=== PATIENT | male | born 1975 | race Caucasian/White ===

== ENCOUNTER 2020-02-07 15:23 | Inpatient (IN) ==
[2020-02-07] MEDS ORDERED: GI Cocktail 40 ML EACH PO ONE (16:04)
[2020-02-07] MEDS ORDERED: 0.9 % Sodium Chloride 1,000 ML IVC ONE (16:04)
[2020-02-07] MEDS ORDERED: Famotidine 20 MG/2 ML VIAL IVP ONE (16:06)
[2020-02-07 17:17] LABS: Bacteria,Urine Few per hpf (None-Few); Bilirubin,Urine Negative (Negative); Blood,Urine Small (Negative); Clarity,Urine Clear (Clear); Color,Urine Light-Yellow (Yellow); Glucose,Urine (UA) >=1000 mg/dL (Normal); Ketones,Urine Negative (Negative); Leukocyte Esterase,Urine Negative (Negative); Mucus,Urine Few per lpf (None-Few); Nitrite,Urine Negative (Negative); PH,Urine 6.5 pH Units (5.0-8.0); Protein,Urine >=600 mg/dL (Neg-Trace); Specific Gravity,Urine 1.028 (1.010-1.025); Squamous Epithelial Cell,Urine Few per hpf (None-Few); Urobilinogen,Urine Normal (Normal); WBC,Urine 0-3 per hpf (0-3)
[2020-02-07 17:46] LABS: Basophils # 0.2 K/mcL (0.0-0.2); Basophils % 1.6 %; Eosinophils # 1.3 K/mcL (0.0-0.6); Eosinophils % 14.3 %; Hematocrit 32.3 % (37.5-50.1); Hemoglobin 11.7 g/dL (12.9-16.9); Immature Granulocytes % 0.5 % (0-4); Lymphocytes # 1.8 K/mcL (0.6-4.6); Lymphocytes % 19.4 %; Mean Corpuscular HGB Conc 36.2 g/dL (31.6-35.5); Mean Corpuscular Hemoglobin 30.8 pg (28.0-33.3); Mean Platelet Volume 10.7 fL (9.4-12.4); Monocytes # 0.5 K/mcL (0.0-1.3); Monocytes % 5.6 %; Neutrophils # 5.4 K/mcL (1.6-8.9); Platelet Count 222 K/mcL (140-400); Red Cell Distribution Width 12.7 % (11.5-14.5); Segmented Neutrophils % 58.6 %; White Blood Count 9.3 K/mcL (4.3-11.1)
[2020-02-07] MEDS ORDERED: Isovue-370 500 ML BOTTLE IVP ONE (17:46)
[2020-02-07 17:48] LABS: VBG HCO3 23 mEq/L (21-27); VBG PCO2 43 mmHg (41-51); VBG PH 7.35 pH Units (7.32-7.42); VBG PO2 148 mmHg (25-50)
[2020-02-07 17:56] LABS: Activated Partial Thrombo Time 33.8 Seconds (26.0-36.0)
[2020-02-07 17:57] LABS: INR 0.9; Prothrombin Time 10.5 Seconds (9.4-12.1)
[2020-02-07 18:13] LABS: Albumin 2.9 g/dL (3.5-5.7); Albumin/Globulin Ratio 1.3 (1.1-2.2); Bilirubin,Indirect 0.3 mg/dL (0.0-1.0); Bilirubin,Total 0.3 mg/dL (0.3-1.0); Calcium 8.7 mg/dL (8.6-10.3); Globulin 2.2 g/dL (2.4-3.5); Potassium 4.2 mEq/L (3.5-5.1); Total Protein 5.1 g/dL (6.4-8.9); Troponin I 0.21 ng/mL (< 0.04)
[2020-02-07] MEDS ORDERED: 0.9 % Sodium Chloride 500 ML IV ONE (18:56)
[2020-02-07] MEDS ORDERED: *HR* Heparin 5,000 UNIT/ML VIAL IVP PRN ×2 (19:30)
[2020-02-07] MEDS ORDERED: *HR* Heparin 5,000 UNIT/ML VIAL IVP ONE (19:30)
[2020-02-07 20:09] LABS: INR 0.9; Prothrombin Time 10.6 Seconds (9.4-12.1)
[2020-02-07 20:11] LABS: Heparin anti-factor XA UFH 0.05 IU/mL (0.30-0.70)
[2020-02-07] MEDS: Heparin 25,000 UNIT/250 ML D5W 25,000 UNIT/250 ML IV.SOLN IVC SCH (20:15)
[2020-02-07 20:24] LABS: Hemoglobin 11.6 g/dL (12.9-16.9); Mean Corpuscular HGB Conc 36.3 g/dL (31.6-35.5); Mean Corpuscular Hemoglobin 30.9 pg (28.0-33.3); Mean Corpuscular Volume 85.1 fL (83.0-100.0); Mean Platelet Volume 10.9 fL (9.4-12.4); Platelet Count 217 K/mcL (140-400); Red Blood Count 3.76 M/mcL (4.19-5.50); Red Cell Distribution Width 12.7 % (11.5-14.5); White Blood Count 7.7 K/mcL (4.3-11.1)
[2020-02-08] MEDS ORDERED: Naloxone 0.4 MG/ML INJ IVP PRN (00:55)
[2020-02-08] MEDS ORDERED: Dextrose Gel 15 GM/37.5 ML TUBE PO PRN ×2 (00:56)
[2020-02-08] MEDS ORDERED: D5% in Water 1,000 ML IVC PRN (00:56)
[2020-02-08] MEDS ORDERED: *HR* Dextrose 50 % in Water (Vial) 50 ML VIAL IVP PRN (00:56)
[2020-02-08] MEDS: traZODone 50 MG TABLET PO SCH ×2 (01:15→20:37)
[2020-02-08] MEDS ORDERED: 0.9 % Sodium Chloride 1,000 ML IVC SCH (01:30)
[2020-02-08 01:43] LABS: Magnesium 1.9 mg/dL (1.6-2.6)
[2020-02-08 01:54] LABS: Basophils # 0.2 K/mcL (0.0-0.2); Basophils % 1.9 %; Eosinophils # 1.3 K/mcL (0.0-0.6); Eosinophils % 13.3 %; Hematocrit 34.6 % (37.5-50.1); Hemoglobin 12.4 g/dL (12.9-16.9); Immature Granulocytes % 0.4 % (0-4); Lymphocytes # 2.5 K/mcL (0.6-4.6); Lymphocytes % 25.9 %; Mean Corpuscular HGB Conc 35.8 g/dL (31.6-35.5); Mean Corpuscular Hemoglobin 30.2 pg (28.0-33.3); Mean Corpuscular Volume 84.2 fL (83.0-100.0); Mean Platelet Volume 10.7 fL (9.4-12.4); Monocytes # 0.5 K/mcL (0.0-1.3); Monocytes % 5.5 %; Platelet Count 256 K/mcL (140-400); Red Blood Count 4.11 M/mcL (4.19-5.50); Red Cell Distribution Width 12.9 % (11.5-14.5); White Blood Count 9.5 K/mcL (4.3-11.1)
[2020-02-08 02:11] LABS: BUN/Creatinine Ratio 26 (6-26); Blood Urea Nitrogen 30 mg/dL (6-20); Calcium 8.1 mg/dL (8.6-10.3); Carbon Dioxide 18 mEq/L (23-29); Chloride 108 mEq/L (98-107); Glucose 187 mg/dL (70-105); Osmolality,Calculated 291 (280-300); Potassium 3.9 mEq/L (3.5-5.1); Sodium 135 mEq/L (136-145); eGFR For African Americans > 60 (> 60); eGFR For Non-African Americans > 60 (> 60)
[2020-02-08] MEDS ORDERED: Acetaminophen 325 MG TABLET PO PRN (02:27)
[2020-02-08] MEDS: Insulin LISPRO 300 UNITS/3 ML VIAL SQ SCH ×5 (04:41→20:37)
[2020-02-08 08:55] LABS: Hematocrit 33.9 % (37.5-50.1); Hemoglobin 12.3 g/dL (12.9-16.9); Mean Corpuscular HGB Conc 36.3 g/dL (31.6-35.5); Mean Corpuscular Hemoglobin 30.9 pg (28.0-33.3); Mean Corpuscular Volume 85.2 fL (83.0-100.0); Mean Platelet Volume 10.4 fL (9.4-12.4); Platelet Count 213 K/mcL (140-400); Red Blood Count 3.98 M/mcL (4.19-5.50); Red Cell Distribution Width 12.9 % (11.5-14.5); White Blood Count 7.5 K/mcL (4.3-11.1)
[2020-02-08 09:03] LABS: INR 0.9; Prothrombin Time 10.5 Seconds (9.4-12.1)
[2020-02-08 09:11] LABS: BUN/Creatinine Ratio 25 (6-26); Blood Urea Nitrogen 31 mg/dL (6-20); Calcium 8.1 mg/dL (8.6-10.3); Carbon Dioxide 20 mEq/L (23-29); Chloride 111 mEq/L (98-107); Chol/HDL Ratio 8.9 (0-4.9); Cholesterol 286 mg/dL (< 200); Glucose 96 mg/dL (70-105); HDL Cholesterol 32 mg/dL (40-59); Osmolality,Calculated 288 (280-300); Phosphorous 3.4 mg/dL (2.7-4.5); Potassium 3.5 mEq/L (3.5-5.1); Sodium 136 mEq/L (136-145); Triglycerides 651 mg/dL (< 150); eGFR For African Americans > 60 (> 60); eGFR For Non-African Americans > 60 (> 60)
[2020-02-08] MEDS: Insulin DETEMIR 100 UNIT/ML X5UNITS SQ SCH ×2 (09:29→20:34)
[2020-02-08 09:37] LABS: Estimated Average Glucose 361 mg/dl
[2020-02-08] MEDS ORDERED: Perflutren Lipid Microsphere 1.3 ML in 0.9 % Sodium Chloride 8.7 ML IVP ONE ×2 (09:37→12:59)
[2020-02-08] MEDS: Loratadine 10 MG TABLET PO SCH (10:12)
[2020-02-08] MEDS: Gabapentin 300 MG CAPSULE PO SCH (10:13)
[2020-02-08] MEDS: Aspirin Enteric Coated 81 MG Tablet PO SCH (10:13)
[2020-02-08] MEDS: Nicotine 14 MG PATCH.TD24 TD SCH (10:13)
[2020-02-08] MEDS: Metoprolol XL (24 HR) Succ 25 MG TAB.ER.24H PO SCH (12:38)
[2020-02-08] MEDS ORDERED: *HR* Labetalol 20 MG/4 ML SYRINGE IVP ONE (17:05)
[2020-02-08] MEDS: lisinopriL 20 MG TABLET PO SCH (17:23)
[2020-02-08] MEDS ORDERED: Morphine Sulfate 2 MG/ML SYRINGE IVP ONE (20:08)
[2020-02-08] MEDS: Heparin 25,000 UNIT/250 ML D5W 25,000 UNIT/250 ML IV.SOLN IVC SCH (20:54)
[2020-02-09] MEDS: Insulin LISPRO 300 UNITS/3 ML VIAL SQ SCH ×7 (00:40→20:55)
[2020-02-09] MEDS: *HR* Promethazine 25 MG/ML VIAL IVP PRN ×2 (04:08→10:32)
[2020-02-09] MEDS: lisinopriL 20 MG TABLET PO SCH (09:00)
[2020-02-09] MEDS: Metoprolol XL (24 HR) Succ 25 MG TAB.ER.24H PO SCH (09:00)
[2020-02-09] MEDS: Loratadine 10 MG TABLET PO SCH (09:00)
[2020-02-09] MEDS: Aspirin Enteric Coated 81 MG Tablet PO SCH (09:00)
[2020-02-09] MEDS: Gabapentin 300 MG CAPSULE PO SCH (09:01)
[2020-02-09] MEDS: Nicotine 14 MG PATCH.TD24 TD SCH (09:01)
[2020-02-09] MEDS: Insulin DETEMIR 100 UNIT/ML X5UNITS SQ SCH ×2 (09:01→20:46)
[2020-02-09] MEDS ORDERED: Nitroglycerin 1,000 MCG/10 ML VIAL IV ONE (11:02)
[2020-02-09] MEDS ORDERED: 0.9 % Sodium Chloride 1,000 ML ONE (11:02)
[2020-02-09] MEDS ORDERED: Heparin 1,000 UNITS/500 mL 500 ML ONE (11:02)
[2020-02-09] MEDS ORDERED: *HR* Heparin 10,000 UNIT/10 ML VIAL ONE (11:02)
[2020-02-09] MEDS ORDERED: ISOVUE-370 200 ML INFUS..BTL ONE (11:02)
[2020-02-09] MEDS ORDERED: *HR* FentaNYL (PF) 100 MCG/2 ML VIAL ONE (11:18)
[2020-02-09] MEDS ORDERED: *HR* Midazolam HCl 2 MG/2 ML VIAL ONE (11:18)
[2020-02-09] MEDS ORDERED: Tirofiban 12.5 MG/250ML 12.5 MG/250 ML BAG ONE (11:47)
[2020-02-09] MEDS ORDERED: Tirofiban 12.5 MG/250ML 12.5 MG/250 ML BAG IVC SCH (12:15)
[2020-02-09] MEDS: polyethylene glycoL 3350 17 GM POWD.PACK PO SCH (18:14)
[2020-02-09] MEDS: traZODone 50 MG TABLET PO SCH (20:49)
[2020-02-09] MEDS: *HR* Heparin 5,000 UNIT/ML VIAL SQ SCH (20:49)
[2020-02-10] MEDS: Insulin LISPRO 300 UNITS/3 ML VIAL SQ SCH ×6 (01:19→21:19)
[2020-02-10 01:39] LABS: Basophils # 0.1 K/mcL (0.0-0.2); Basophils % 1.4 %; Eosinophils % 11.6 %; Hematocrit 34.5 % (37.5-50.1); Hemoglobin 12.4 g/dL (12.9-16.9); Lymphocytes # 1.6 K/mcL (0.6-4.6); Lymphocytes % 18.4 %; Mean Corpuscular HGB Conc 35.9 g/dL (31.6-35.5); Mean Corpuscular Hemoglobin 30.5 pg (28.0-33.3); Mean Corpuscular Volume 84.8 fL (83.0-100.0); Mean Platelet Volume 10.6 fL (9.4-12.4); Monocytes # 0.6 K/mcL (0.0-1.3); Monocytes % 6.3 %; Neutrophils # 5.4 K/mcL (1.6-8.9); Platelet Count 218 K/mcL (140-400); Red Blood Count 4.07 M/mcL (4.19-5.50); Red Cell Distribution Width 12.9 % (11.5-14.5); Segmented Neutrophils % 61.3 %; White Blood Count 8.9 K/mcL (4.3-11.1)
[2020-02-10 01:53] LABS: Calcium 8.3 mg/dL (8.6-10.3); Magnesium 2.2 mg/dL (1.6-2.6); Potassium 4.7 mEq/L (3.5-5.1)
[2020-02-10] MEDS: *HR* Heparin 5,000 UNIT/ML VIAL SQ SCH ×3 (06:44→21:26)
[2020-02-10] MEDS ORDERED: 0.9 % Sodium Chloride 500 ML IVC SCH (08:00)
[2020-02-10] MEDS: lisinopriL 20 MG TABLET PO SCH (09:46)
[2020-02-10] MEDS: Isosorbide MONOnitrate (24 HR) 30 MG TAB.ER.24H PO SCH (09:46)
[2020-02-10] MEDS: Loratadine 10 MG TABLET PO SCH (09:46)
[2020-02-10] MEDS: Metoprolol XL (24 HR) Succ 25 MG TAB.ER.24H PO SCH (09:46)
[2020-02-10] MEDS: polyethylene glycoL 3350 17 GM POWD.PACK PO SCH (09:47)
[2020-02-10] MEDS: Nicotine 14 MG PATCH.TD24 TD SCH (09:47)
[2020-02-10] MEDS: Aspirin Enteric Coated 81 MG Tablet PO SCH (09:47)
[2020-02-10] MEDS: Insulin DETEMIR 100 UNIT/ML X5UNITS SQ SCH ×2 (09:47→21:26)
[2020-02-10] MEDS: Gabapentin 300 MG CAPSULE PO SCH (09:47)
[2020-02-10] MEDS: *HR* Promethazine 25 MG/ML VIAL IVP PRN (10:06)
[2020-02-10] MEDS ORDERED: GI Cocktail 40 ML EACH PO ONE (16:28)
[2020-02-10] MEDS: traZODone 50 MG TABLET PO SCH (21:25)
[2020-02-11] MEDS: *HR* Heparin 5,000 UNIT/ML VIAL SQ SCH ×3 (05:31→20:45)
[2020-02-11 07:51] LABS: BUN/Creatinine Ratio 28 (6-26); Blood Urea Nitrogen 41 mg/dL (6-20); Calcium 8.3 mg/dL (8.6-10.3); Carbon Dioxide 20 mEq/L (23-29); Chloride 110 mEq/L (98-107); Glucose 110 mg/dL (70-105); Osmolality,Calculated 295 (280-300); Potassium 4.3 mEq/L (3.5-5.1); Sodium 137 mEq/L (136-145); eGFR For African Americans > 60 (> 60); eGFR For Non-African Americans 54 (> 60)
[2020-02-11] MEDS: Insulin LISPRO 300 UNITS/3 ML VIAL SQ SCH ×4 (08:50→20:45)
[2020-02-11] MEDS: Insulin DETEMIR 100 UNIT/ML X5UNITS SQ SCH ×3 (09:08→20:45)
[2020-02-11] MEDS: Aspirin Enteric Coated 81 MG Tablet PO SCH (09:14)
[2020-02-11] MEDS: lisinopriL 20 MG TABLET PO SCH (09:14)
[2020-02-11] MEDS: Isosorbide MONOnitrate (24 HR) 30 MG TAB.ER.24H PO SCH (09:14)
[2020-02-11] MEDS: Gabapentin 300 MG CAPSULE PO SCH (09:14)
[2020-02-11] MEDS: Loratadine 10 MG TABLET PO SCH (09:14)
[2020-02-11] MEDS: Metoprolol XL (24 HR) Succ 25 MG TAB.ER.24H PO SCH (09:14)
[2020-02-11] MEDS: polyethylene glycoL 3350 17 GM POWD.PACK PO SCH (09:16)
[2020-02-11] MEDS ORDERED: Lidocaine -MPF 2% 2 ML VIAL ONE (10:39)
[2020-02-11] MEDS ORDERED: *HR* Propofol 200 MG/20 ML VIAL IVP ONE (10:40)
[2020-02-11] MEDS: Nicotine 14 MG PATCH.TD24 TD SCH ×2 (11:07→17:53)
[2020-02-11] MEDS: 0.9 % Sodium Chloride 1,000 ML IVC SCH (12:55)
[2020-02-11] MEDS: traZODone 50 MG TABLET PO SCH (20:45)
[2020-02-12 02:23] LABS: BUN/Creatinine Ratio 27 (6-26); Blood Urea Nitrogen 35 mg/dL (6-20); Calcium 8.1 mg/dL (8.6-10.3); Carbon Dioxide 19 mEq/L (23-29); Chloride 110 mEq/L (98-107); Glucose 157 mg/dL (70-105); Osmolality,Calculated 291 (280-300); Potassium 4.4 mEq/L (3.5-5.1); Sodium 135 mEq/L (136-145); eGFR For African Americans > 60 (> 60); eGFR For Non-African Americans > 60 (> 60)
[2020-02-12] MEDS: 0.9 % Sodium Chloride 1,000 ML IVC SCH (04:58)
[2020-02-12] MEDS: *HR* Heparin 5,000 UNIT/ML VIAL SQ SCH ×3 (04:58→21:40)
[2020-02-12] MEDS: Loratadine 10 MG TABLET PO SCH (07:40)
[2020-02-12] MEDS: Gabapentin 300 MG CAPSULE PO SCH (07:40)
[2020-02-12] MEDS: Metoprolol XL (24 HR) Succ 25 MG TAB.ER.24H PO SCH (07:40)
[2020-02-12] MEDS: Aspirin Enteric Coated 81 MG Tablet PO SCH (07:40)
[2020-02-12] MEDS: lisinopriL 20 MG TABLET PO SCH (07:40)
[2020-02-12] MEDS: Isosorbide MONOnitrate (24 HR) 30 MG TAB.ER.24H PO SCH (07:41)
[2020-02-12] MEDS: Insulin DETEMIR 100 UNIT/ML X5UNITS SQ SCH ×2 (07:41→22:33)
[2020-02-12] MEDS: polyethylene glycoL 3350 17 GM POWD.PACK PO SCH (07:41)
[2020-02-12] MEDS: Insulin LISPRO 300 UNITS/3 ML VIAL SQ SCH ×4 (08:00→21:41)
[2020-02-12] MEDS ORDERED: Lactulose Oral Soln 20 GM/30 ML UDC PO ONE (09:45)
[2020-02-12] MEDS: Nicotine 14 MG PATCH.TD24 TD SCH (17:08)
[2020-02-12] MEDS: traZODone 50 MG TABLET PO SCH (21:41)
[2020-02-13] MEDS: *HR* Heparin 5,000 UNIT/ML VIAL SQ SCH (04:59)
[2020-02-13] MEDS: *HR* Promethazine 25 MG/ML VIAL IVP PRN (09:20)
[2020-02-13] MEDS: lisinopriL 20 MG TABLET PO SCH (09:24)
[2020-02-13] MEDS: Aspirin Enteric Coated 81 MG Tablet PO SCH (09:24)
[2020-02-13] MEDS: Loratadine 10 MG TABLET PO SCH (09:25)
[2020-02-13] MEDS: Isosorbide MONOnitrate (24 HR) 30 MG TAB.ER.24H PO SCH (09:25)
[2020-02-13] MEDS: Metoprolol XL (24 HR) Succ 25 MG TAB.ER.24H PO SCH (09:25)
[2020-02-13] MEDS: Gabapentin 300 MG CAPSULE PO SCH (09:25)
[2020-02-13] MEDS: Insulin LISPRO 300 UNITS/3 ML VIAL SQ SCH (09:27)
[2020-02-13] MEDS: polyethylene glycoL 3350 17 GM POWD.PACK PO SCH (09:28)
[2020-02-13] MEDS: Insulin DETEMIR 100 UNIT/ML X5UNITS SQ SCH (09:33)
[2020-02-13] MEDS ORDERED: Lactulose Oral Soln 20 GM/30 ML UDC PO ONE (09:34)
[2020-02-13 11:21] VITALS: BP 144/90
== END 2020-02-13 12:32 | disposition home or self-care (01) | DRG 174 ==
LOC: EMEROOARM 15:23 → ICNU 15:23 → SUATTDRO 02-08 02:30 → 2ANU 02-08 23:16
PROVIDERS: ADMIT Student in an Organized Health Care Education/Training Program; ATTEND Internal Medicine

== ENCOUNTER 2020-02-21 00:46 | Observation (INO) ==
[2020-02-21] MEDS ORDERED: Naloxone 0.4 MG/ML INJ IVP PRN (01:30)
[2020-02-21] MEDS ORDERED: D5% in Water 1,000 ML IVC PRN (01:59)
[2020-02-21] MEDS ORDERED: Dextrose Gel 15 GM/37.5 ML TUBE PO PRN ×2 (01:59)
[2020-02-21] MEDS ORDERED: *HR* Dextrose 50 % in Water (Vial) 50 ML VIAL IVP PRN (01:59)
[2020-02-21] MEDS ORDERED: Insulin LISPRO 300 UNITS/3 ML VIAL SQ ONE (02:06)
[2020-02-21 02:08] LABS: Bacteria,Urine Few per hpf (None-Few); Bilirubin,Urine Negative (Negative); Blood,Urine Small (Negative); Clarity,Urine Clear (Clear); Color,Urine Colorless (Yellow); Glucose,Urine (UA) >=1000 mg/dL (Normal); Hyaline Casts,Urine Few per lpf (None Seen); Ketones,Urine Negative (Negative); Leukocyte Esterase,Urine Negative (Negative); Mucus,Urine Few per lpf (None-Few); Nitrite,Urine Negative (Negative); PH,Urine 6.5 pH Units (5.0-8.0); Protein,Urine >=300 mg/dL (Neg-Trace); RBC,Urine 0-3 per hpf (0-3); Specific Gravity,Urine 1.018 (1.010-1.025); Urobilinogen,Urine Normal (Normal); WBC,Urine 0-3 per hpf (0-3)
[2020-02-21 02:19] LABS: Amphetamine Screen,Urine Negative ng/mL (Cutoff=1000); Barbiturate Screen,Urine Negative ng/mL (Cutoff=200); Benzodiazepines Screen,Urine Negative ng/mL (Cutoff=200); Cannabinoid Screen,Urine Negative ng/mL (Cutoff = 50); Cocaine Screen,Urine Negative ng/mL (Cutoff= 300); Opiate Screen,Urine Negative ng/mL (Cutoff=300); Phencyclidine Screen,Urine Negative ng/mL (Cutoff=25)
[2020-02-21 02:53] LABS: Basophils % 1.5 %
[2020-02-21 02:55] LABS: Basophils # 0.1 K/mcL (0.0-0.2); Eosinophils # 1.3 K/mcL (0.0-0.6); Hematocrit 31.1 % (37.5-50.1); Hemoglobin 10.7 g/dL (12.9-16.9); Immature Granulocytes % 0.4 % (0-4); Immature Platelets 4.4 % (1.1-6.1); Lymphocytes # 1.8 K/mcL (0.6-4.6); Lymphocytes % 19.2 %; Mean Corpuscular HGB Conc 34.4 g/dL (31.6-35.5); Mean Corpuscular Hemoglobin 30.5 pg (28.0-33.3); Mean Corpuscular Volume 88.6 fL (83.0-100.0); Mean Platelet Volume 11.1 fL (9.4-12.4); Monocytes # 0.5 K/mcL (0.0-1.3); Monocytes % 5.7 %; Platelet Count 225 K/mcL (140-400); Red Blood Count 3.51 M/mcL (4.19-5.50); Red Cell Distribution Width 12.9 % (11.5-14.5); Segmented Neutrophils % 59.2 %; White Blood Count 9.2 K/mcL (4.3-11.1)
[2020-02-21 02:57] LABS: INR 0.9; Prothrombin Time 10.3 Seconds (9.4-12.1)
[2020-02-21 02:59] LABS: Neutrophils # 5.5 K/mcL (1.6-8.9)
[2020-02-21 03:13] LABS: Alanine Aminotransferase 29 Units/L (7-52); Albumin 2.9 g/dL (3.5-5.7); Albumin/Globulin Ratio 1.2 (1.1-2.2); Alkaline Phosphatase 194 Units/L (34-104); Aspartate Amino Transferase 17 Units/L (13-39); BUN/Creatinine Ratio 25 (6-26); Bilirubin,Total 0.3 mg/dL (0.3-1.0); Blood Urea Nitrogen 33 mg/dL (6-20); Calcium 8.5 mg/dL (8.6-10.3); Carbon Dioxide 19 mEq/L (23-29); Chloride 107 mEq/L (98-107); Globulin 2.4 g/dL (2.4-3.5); Glucose 369 mg/dL (70-105); Osmolality,Calculated 302 (280-300); Phosphorous 3.6 mg/dL (2.7-4.5); Potassium 4.2 mEq/L (3.5-5.1); Sodium 135 mEq/L (136-145); Total Protein 5.3 g/dL (6.4-8.9); eGFR For African Americans > 60 (> 60); eGFR For Non-African Americans 58 (> 60)
[2020-02-21] MEDS: *HR* Heparin 5,000 UNIT/ML VIAL SQ SCH ×3 (04:58→22:17)
[2020-02-21] MEDS: Insulin LISPRO 300 UNITS/3 ML VIAL SQ SCH ×4 (04:59→17:22)
[2020-02-21] MEDS ORDERED: Famotidine 20 MG/2 ML VIAL IVP ONE (05:36)
[2020-02-21] MEDS ORDERED: Insulin LISPRO 300 UNITS/3 ML VIAL SQ SCH ×2 (06:00→21:00)
[2020-02-21] MEDS ORDERED: *HR* Labetalol 20 MG/4 ML SYRINGE IVP PRN (07:19)
[2020-02-21] MEDS: Nicotine 14 MG PATCH.TD24 TD SCH (08:30)
[2020-02-21] MEDS: Aspirin Enteric Coated 81 MG Tablet PO SCH (08:30)
[2020-02-21] MEDS: Insulin DETEMIR 100 UNIT/ML X5UNITS SQ SCH ×2 (08:31→20:38)
[2020-02-21] MEDS: *HR* Promethazine 25 MG/ML VIAL IVP PRN (08:32)
[2020-02-21] MEDS: Isosorbide MONOnitrate (24 HR) 60 MG TAB.ER.24H PO SCH (09:47)
[2020-02-21] MEDS: lisinopriL 10 MG TABLET PO SCH (09:48)
[2020-02-21] MEDS: carvediloL 6.25 MG TABLET PO SCH ×2 (09:48→17:21)
[2020-02-21] MEDS ORDERED: Nitroglycerin 0.4 MG TAB.SUBL SL PRN (12:55)
[2020-02-21] MEDS: Gabapentin 300 MG CAPSULE PO SCH ×2 (14:15→20:38)
[2020-02-22] MEDS ORDERED: *HR* OxyCODONE Immed Rel 5 MG TABLET PO ONE (01:49)
[2020-02-22] MEDS: *HR* Heparin 5,000 UNIT/ML VIAL SQ SCH (05:03)
[2020-02-22] MEDS: *HR* Promethazine 25 MG/ML VIAL IVP PRN (05:56)
[2020-02-22] MEDS: Insulin DETEMIR 100 UNIT/ML X5UNITS SQ SCH (08:06)
[2020-02-22] MEDS: carvediloL 6.25 MG TABLET PO SCH (08:06)
[2020-02-22] MEDS: Aspirin Enteric Coated 81 MG Tablet PO SCH (08:06)
[2020-02-22] MEDS: Nicotine 14 MG PATCH.TD24 TD SCH (08:08)
[2020-02-22] MEDS: Isosorbide MONOnitrate (24 HR) 60 MG TAB.ER.24H PO SCH (08:08)
[2020-02-22] MEDS: lisinopriL 10 MG TABLET PO SCH (08:08)
[2020-02-22] MEDS: Gabapentin 300 MG CAPSULE PO SCH (08:08)
[2020-02-22] MEDS: Insulin LISPRO 300 UNITS/3 ML VIAL SQ SCH ×2 (08:11→12:24)
[2020-02-22] MEDS ORDERED: Loratadine 10 MG TABLET PO SCH (09:00)
[2020-02-22] MEDS ORDERED: cloNIDine HCL 0.1 MG TABLET PO SCH (09:00)
[2020-02-22 12:14] VITALS: BP 100/64
== END 2020-02-22 14:00 | disposition home or self-care (01) ==
LOC: 2ANU → SUATTDRO 00:46
PROVIDERS: ADMIT Student in an Organized Health Care Education/Training Program; ATTEND Internal Medicine

== ENCOUNTER 2020-10-11 21:45 | Inpatient (IN) ==
[2020-10-11] MEDS ORDERED: Naloxone 0.4 MG/ML INJ IVP PRN (23:47)
[2020-10-12] MEDS ORDERED: 0.9 % Sodium Chloride 1,000 ML IVC SCH ×2 (00:45→02:45)
[2020-10-12] MEDS ORDERED: *HR* Dextrose 50 % in Water (Vial) 50 ML VIAL IVP ONE (01:31)
[2020-10-12 01:33] LABS: Hematocrit 33.9 % (37.5-50.1); Hemoglobin 11.5 g/dL (12.9-16.9); Mean Corpuscular HGB Conc 33.9 g/dL (31.6-35.5); Mean Corpuscular Hemoglobin 30.1 pg (28.0-33.3); Mean Corpuscular Volume 88.7 fL (83.0-100.0); Mean Platelet Volume 10.1 fL (9.4-12.4); Platelet Count 305 K/mcL (140-400); Red Blood Count 3.82 M/mcL (4.19-5.50); Red Cell Distribution Width 13.1 % (11.5-14.5); White Blood Count 11.9 K/mcL (4.3-11.1)
[2020-10-12] MEDS ORDERED: *HR* Dextrose 50 % in Water (Vial) 50 ML VIAL ONE (01:34)
[2020-10-12 01:41] LABS: Prothrombin Time 11.2 Seconds (9.4-12.1)
[2020-10-12 01:50] LABS: Complement C3 163 mg/dL (87-200)
[2020-10-12 01:59] LABS: Alanine Aminotransferase 18 Units/L (7-52); Albumin 2.8 g/dL (3.5-5.7); Alkaline Phosphatase 107 Units/L (34-104); Aspartate Amino Transferase 21 Units/L (13-39); BUN/Creatinine Ratio 25 (6-26); Bilirubin,Total 0.2 mg/dL (0.3-1.0); Blood Urea Nitrogen 66 mg/dL (6-20); Calcium 8.3 mg/dL (8.6-10.3); Carbon Dioxide 15 mEq/L (23-29); Chloride 115 mEq/L (98-107); Creatine Kinase 1220 Units/L (30-223); Globulin 2.8 g/dL (2.4-3.5); Glucose 50 mg/dL (70-105); Lipase 12 Units/L (11-82); Magnesium 1.9 mg/dL (1.6-2.6); Osmolality,Calculated 304 (280-300); Phosphorous 5.4 mg/dL (2.7-4.5); Potassium 4.7 mEq/L (3.5-5.1); Sodium 139 mEq/L (136-145); Total Protein 5.6 g/dL (6.4-8.9); Troponin I < 0.03 ng/mL (< 0.04); eGFR For African Americans 32 (> 60); eGFR For Non-African Americans 27 (> 60)
[2020-10-12 02:00] LABS: Bacteria,Urine Few per hpf (None-Few); Bilirubin,Urine Negative (Negative); Blood,Urine Moderate (Negative); Clarity,Urine Clear (Clear); Color,Urine Light-Yellow (Yellow); Glucose,Urine (UA) 100 mg/dL (Normal); Ketones,Urine Negative (Negative); Leukocyte Esterase,Urine Negative (Negative); Mucus,Urine Few per lpf (None-Few); Nitrite,Urine Negative (Negative); PH,Urine 6.5 pH Units (5.0-8.0); Protein,Urine >=600 mg/dL (Neg-Trace); Specific Gravity,Urine 1.018 (1.010-1.025); Squamous Epithelial Cell,Urine Few per hpf (None-Few); Urobilinogen,Urine Normal (Normal)
[2020-10-12 02:05] LABS: Creatinine,Urine 59 mg/dL; Sodium, Urine 58.9 mEq/L
[2020-10-12] MEDS ORDERED: D5% in Water 1,000 ML IVC PRN (03:38)
[2020-10-12] MEDS ORDERED: *HR* Dextrose 50 % in Water (Vial) 50 ML VIAL IVP PRN (03:38)
[2020-10-12] MEDS ORDERED: Dextrose Gel 15 GM/37.5 ML TUBE PO PRN (03:38)
[2020-10-12] MEDS: 0.9 % Sodium Chloride 1,000 ML IVC SCH ×2 (08:14→11:07)
[2020-10-12] MEDS: Aspirin Enteric Coated 81 MG Tablet PO SCH (08:16)
[2020-10-12 09:07] LABS: Uric Acid 5.2 mg/dL (2.3-7.6)
[2020-10-12] MEDS: DilTIAZem CD (24hr) 180 MG CAP.ER.24H PO SCH (11:34)
[2020-10-12] MEDS ORDERED: Insulin DETEMIR 100 UNIT/ML X5UNITS SUBQ ONE (11:47)
[2020-10-12] MEDS: Insulin LISPRO 300 UNITS/3 ML VIAL SUBQ SCH ×3 (12:30→21:38)
[2020-10-12] MEDS: *HR* Heparin 5,000 UNIT/ML VIAL SQ SCH ×2 (14:35→21:38)
[2020-10-12] MEDS: Ondansetron 4 MG/2 ML VIAL IVP PRN (14:40)
[2020-10-13] MEDS: traZODone 50 MG TABLET PO PRN (00:19)
[2020-10-13] MEDS: Acetaminophen 325 MG TABLET PO PRN (00:19)
[2020-10-13] MEDS: Ondansetron 4 MG/2 ML VIAL IVP PRN ×3 (00:23→20:32)
[2020-10-13] MEDS: 0.9 % Sodium Chloride 1,000 ML IVC SCH ×4 (00:39→18:50)
[2020-10-13 03:47] LABS: Albumin 2.5 g/dL (3.5-5.7); Calcium 7.8 mg/dL (8.6-10.3); Phosphorous 5.6 mg/dL (2.7-4.5)
[2020-10-13] MEDS: *HR* Heparin 5,000 UNIT/ML VIAL SQ SCH ×3 (06:16→20:22)
[2020-10-13] MEDS: Aspirin Enteric Coated 81 MG Tablet PO SCH (07:56)
[2020-10-13] MEDS: Dextrose Gel 15 GM/37.5 ML TUBE PO PRN ×2 (07:56→08:28)
[2020-10-13] MEDS: Insulin LISPRO 300 UNITS/3 ML VIAL SUBQ SCH ×4 (07:57→20:31)
[2020-10-13] MEDS: DilTIAZem CD (24hr) 180 MG CAP.ER.24H PO SCH (08:01)
[2020-10-13] MEDS ORDERED: Ringers Solution, Lactated 1,000 ML IVC ONE (09:50)
[2020-10-13 12:29] LABS: Bilirubin,Indirect 0.1 mg/dL (0.0-1.0); Bilirubin,Total 0.1 mg/dL (0.3-1.0); Globulin 2.6 g/dL (2.4-3.5); Total Protein 5.1 g/dL (6.4-8.9)
[2020-10-14] MEDS: 0.9 % Sodium Chloride 1,000 ML IVC SCH ×4 (02:49→21:48)
[2020-10-14 05:31] LABS: Hemoglobin 10.7 g/dL (12.9-16.9); Mean Corpuscular HGB Conc 32.4 g/dL (31.6-35.5); Mean Corpuscular Hemoglobin 29.7 pg (28.0-33.3); Mean Corpuscular Volume 91.7 fL (83.0-100.0); Mean Platelet Volume 10.8 fL (9.4-12.4); Platelet Count 226 K/mcL (140-400); Red Cell Distribution Width 13.2 % (11.5-14.5); White Blood Count 8.2 K/mcL (4.3-11.1)
[2020-10-14] MEDS: Ondansetron 4 MG/2 ML VIAL IVP PRN ×2 (05:33→22:19)
[2020-10-14 05:45] LABS: Complement C3 165 mg/dL (87-200)
[2020-10-14 05:46] LABS: Calcium 8.1 mg/dL (8.6-10.3); Potassium 5.2 mEq/L (3.5-5.1)
[2020-10-14 05:47] LABS: Rheumatoid Factor < 10 IU/mL (Less than 14)
[2020-10-14] MEDS: *HR* Heparin 5,000 UNIT/ML VIAL SQ SCH ×3 (06:09→22:04)
[2020-10-14 06:10] LABS: Vitamin B12 574 pg/mL (250-1100)
[2020-10-14 06:11] LABS: Vitamin D 25 Hydroxy 5 ng/mL (30-80)
[2020-10-14 06:47] LABS: Hepatitis B Surface Antigen Nonreactive (Nonreactive)
[2020-10-14 07:15] LABS: Hepatitis C Virus Antibody Nonreactive (Nonreactive)
[2020-10-14 07:16] LABS: Hepatitis B Core IgM Nonreactive (Nonreactive)
[2020-10-14 07:17] LABS: Hepatitis A Antibody IgM Nonreactive (Nonreactive)
[2020-10-14] MEDS: Aspirin Enteric Coated 81 MG Tablet PO SCH (08:59)
[2020-10-14] MEDS: DilTIAZem CD (24hr) 180 MG CAP.ER.24H PO SCH (08:59)
[2020-10-14] MEDS: Insulin LISPRO 300 UNITS/3 ML VIAL SUBQ SCH ×4 (08:59→21:48)
[2020-10-14 11:42] LABS: Microalbumin,Urine > 1350 mg/L; Protein/Creatinine Ratio,Urine 17.95 mg/mg (0.00-0.20)
[2020-10-14 14:59] LABS: Bacteria,Urine Few per hpf (None-Few); Bilirubin,Urine Negative (Negative); Blood,Urine Large (Negative); Clarity,Urine Turbid (Clear); Color,Urine Light-Yellow (Yellow); Glucose,Urine (UA) 200 mg/dL (Normal); Ketones,Urine Trace mg/dL (Negative); Leukocyte Esterase,Urine Small (Negative); Mucus,Urine Few per lpf (None-Few); Nitrite,Urine Negative (Negative); Protein,Urine >=600 mg/dL (Neg-Trace); RBC,Urine TNTC per hpf (0-3); Specific Gravity,Urine 1.016 (1.010-1.025); Squamous Epithelial Cell,Urine Few per hpf (None-Few); Urobilinogen,Urine Normal (Normal); WBC,Urine TNTC per hpf (0-3)
[2020-10-14] MEDS: Isosorbide MONOnitrate (24 HR) 60 MG TAB.ER.24H PO SCH (15:08)
[2020-10-14] MEDS: Loratadine 10 MG TABLET PO SCH (15:08)
[2020-10-14 15:25] LABS: ANA IgG by ELISA NONE DETECTED (None Detected)
[2020-10-14 16:48] LABS: Protein/Creatinine Ratio,Urine 12.49 mg/mg (0.00-0.20); Sodium, Urine 70.4 mEq/L
[2020-10-15] MEDS: 0.9 % Sodium Chloride 1,000 ML IVC SCH ×3 (01:47→21:31)
[2020-10-15] MEDS: Acetaminophen 325 MG TABLET PO PRN (01:48)
[2020-10-15] MEDS: traZODone 50 MG TABLET PO PRN (01:50)
[2020-10-15] MEDS: *HR* Heparin 5,000 UNIT/ML VIAL SQ SCH ×3 (05:47→21:30)
[2020-10-15] MEDS: Insulin LISPRO 300 UNITS/3 ML VIAL SUBQ SCH ×4 (07:55→21:29)
[2020-10-15 08:03] LABS: Hematocrit 28.7 % (37.5-50.1); Hemoglobin 9.4 g/dL (12.9-16.9); Mean Corpuscular HGB Conc 32.8 g/dL (31.6-35.5); Mean Corpuscular Volume 91.7 fL (83.0-100.0); Mean Platelet Volume 10.6 fL (9.4-12.4); Platelet Count 233 K/mcL (140-400); Red Blood Count 3.13 M/mcL (4.19-5.50); Red Cell Distribution Width 13.2 % (11.5-14.5)
[2020-10-15 08:06] LABS: White Blood Count 15.1 K/mcL (4.3-11.1)
[2020-10-15] MEDS: DilTIAZem CD (24hr) 180 MG CAP.ER.24H PO SCH (08:08)
[2020-10-15] MEDS: Aspirin Enteric Coated 81 MG Tablet PO SCH (08:08)
[2020-10-15] MEDS: Loratadine 10 MG TABLET PO SCH (08:08)
[2020-10-15] MEDS: Isosorbide MONOnitrate (24 HR) 60 MG TAB.ER.24H PO SCH (08:08)
[2020-10-15 08:23] LABS: Calcium 7.7 mg/dL (8.6-10.3); Potassium 5.2 mEq/L (3.5-5.1)
[2020-10-15] MEDS ORDERED: Ringers Solution, Lactated 1,000 ML IVC ONE (10:12)
[2020-10-15] MEDS: Piperacillin/Tazobactam 3.375 GM in 0.9 % Sodium Chloride Mini Bag 100 ML IVPB SCH ×3 (12:22→23:44)
[2020-10-15 13:33] LABS: Adenovirus Not Detected (Not Detect); Bordetella Pertussis Not Detected (Not Detect); Chlamydophila pneumoniae Not Detected (Not Detect); Coronavirus 229E Not Detected (Not Detect); Coronavirus HKU1 Not Detected (Not Detect); Coronavirus NL63 Not Detected (Not Detect); Coronavirus OC43 Not Detected (Not Detect); Human Metapneumovirus Not Detected (Not Detect); Human Rhinovirus/Enterovirus Not Detected (Not Detect); Influenza A Subtype 2009 H1 Not Detected (Not Detect); Influenza B Not Detected (Not Detect); Mycoplasma pneumoniae Not Detected (Not Detect); Parainfluenza Virus 1 Not Detected (Not Detect); Parainfluenza Virus 2 Not Detected (Not Detect); Parainfluenza Virus 3 Not Detected (Not Detect); Parainfluenza Virus 4 Not Detected (Not Detect); Respiratory Syncytial Virus Not Detected (Not Detect); SARS-CoV-2 Not Detected (Not Detect)
[2020-10-15] MEDS ORDERED: Vancomycin 1,500 MG/265 ML IV.SOLN IVPB ONE (14:30)
[2020-10-15] MEDS ORDERED: *HR* OxyCODONE Immed Rel 5 MG TABLET PO ONE (15:34)
[2020-10-16 02:26] LABS: Hematocrit 25.7 % (37.5-50.1); Hemoglobin 8.6 g/dL (12.9-16.9); Mean Corpuscular HGB Conc 33.5 g/dL (31.6-35.5); Mean Corpuscular Hemoglobin 30.5 pg (28.0-33.3); Mean Corpuscular Volume 91.1 fL (83.0-100.0); Mean Platelet Volume 10.9 fL (9.4-12.4); Platelet Count 198 K/mcL (140-400); Red Blood Count 2.82 M/mcL (4.19-5.50); Red Cell Distribution Width 13.2 % (11.5-14.5); White Blood Count 15.9 K/mcL (4.3-11.1)
[2020-10-16 02:55] LABS: Calcium 7.7 mg/dL (8.6-10.3); Magnesium 1.9 mg/dL (1.6-2.6); Phosphorous 6.1 mg/dL (2.7-4.5); Potassium 5.2 mEq/L (3.5-5.1)
[2020-10-16] MEDS: 0.9 % Sodium Chloride 1,000 ML IVC SCH ×2 (05:32→05:37)
[2020-10-16] MEDS: *HR* Heparin 5,000 UNIT/ML VIAL SQ SCH ×2 (05:32→12:48)
[2020-10-16] MEDS ORDERED: Sodium Bicarbonate 75 MEQ in 0.45 % Sodium Chloride 1,000 ML IVC SCH (07:27)
[2020-10-16] MEDS: Piperacillin/Tazobactam 3.375 GM in 0.9 % Sodium Chloride Mini Bag 100 ML IVPB SCH (08:32)
[2020-10-16] MEDS: Insulin LISPRO 300 UNITS/3 ML VIAL SUBQ SCH ×4 (08:34→19:33)
[2020-10-16 08:40] LABS: VBG HCO3 10 mEq/L (21-27); VBG PCO2 23 mmHg (41-51); VBG PH 7.26 pH Units (7.32-7.42); VBG PO2 192 mmHg (25-50)
[2020-10-16] MEDS: DilTIAZem CD (24hr) 180 MG CAP.ER.24H PO SCH (08:46)
[2020-10-16] MEDS: Aspirin Enteric Coated 81 MG Tablet PO SCH (08:46)
[2020-10-16] MEDS: Isosorbide MONOnitrate (24 HR) 60 MG TAB.ER.24H PO SCH (08:46)
[2020-10-16] MEDS: Loratadine 10 MG TABLET PO SCH (08:46)
[2020-10-16] MEDS ORDERED: 0.9 % Sodium Chloride 250 ML IVC PRN (10:12)
[2020-10-16] MEDS ORDERED: *HR* Heparin 10,000 UNIT/10 ML VIAL IV PRN (10:12)
[2020-10-16] MEDS ORDERED: 0.9 % Sodium Chloride 1,000 ML PRIME SCH (10:15)
[2020-10-16 10:49] LABS: Immature Reticulocyte % 11.5 % (11.0-38.0); Retculocyte # 0.04 M/mcL (0.05-0.10); Reticulocyte % 1.3 % (1.6-2.8)
[2020-10-16 11:00] LABS: INR 1.2
[2020-10-16 11:01] LABS: VBG Ionized Calcium 1.15 mmol/L (1.15-1.35)
[2020-10-16 11:03] LABS: Activated Partial Thrombo Time 34.7 Seconds (26.0-36.0); Albumin 2.5 g/dL (3.5-5.7); BUN/Creatinine Ratio 19 (6-26); Blood Urea Nitrogen 57 mg/dL (6-20); Carbon Dioxide 11 mEq/L (23-29); Chloride 116 mEq/L (98-107); Glucose 124 mg/dL (70-105); Osmolality,Calculated 307 (280-300); Potassium 4.8 mEq/L (3.5-5.1); Sodium 140 mEq/L (136-145); eGFR For African Americans 27 (> 60); eGFR For Non-African Americans 23 (> 60)
[2020-10-16] MEDS ORDERED: Heparin 1,000 UNITS/500 mL 500 ML ONE (11:07)
[2020-10-16] MEDS ORDERED: Lidocaine/EPI 1:100k 1% 50 ML VIAL ONE (11:07)
[2020-10-16] MEDS ORDERED: *HR* Heparin 5,000 UNIT/ML VIAL ONE (11:28)
[2020-10-16 11:51] LABS: Alanine Aminotransferase 26 Units/L (7-52); Albumin/Globulin Ratio 0.9 (1.1-2.2); Alkaline Phosphatase 111 Units/L (34-104); Amylase 11 Units/L (29-103); Aspartate Amino Transferase 47 Units/L (13-39); Bilirubin,Indirect 0.2 mg/dL (0.0-1.0); Bilirubin,Total 0.2 mg/dL (0.3-1.0); Globulin 2.8 g/dL (2.4-3.5); Lipase < 3 Units/L (11-82); Total Protein 5.3 g/dL (6.4-8.9)
[2020-10-16 12:11] LABS: Creatine Kinase 2720 Units/L (30-223); Iron < 10 mcg/dL (65-175); Lactate Dehydrogenase 294 Units/L (140-271); Transferrin 122 mg/dL (203-362); Vancomycin,Random 15 mcg/mL
[2020-10-16 14:09] LABS: Thyroid Stimulating Hormone 3.781 mcIU/mL (0.340-5.600)
[2020-10-16 14:27] LABS: Basophils # 0.1 K/mcL (0.0-0.2); Basophils % 0.4 %; Eosinophils # 0.1 K/mcL (0.0-0.6); Eosinophils % 0.4 %; Hematocrit 27.2 % (37.5-50.1); Hemoglobin 8.9 g/dL (12.9-16.9); Immature Granulocytes % 1.3 % (0-4); Lymphocytes # 0.6 K/mcL (0.6-4.6); Mean Corpuscular HGB Conc 32.7 g/dL (31.6-35.5); Mean Corpuscular Hemoglobin 30.3 pg (28.0-33.3); Mean Corpuscular Volume 92.5 fL (83.0-100.0); Mean Platelet Volume 10.7 fL (9.4-12.4); Monocytes # 1.1 K/mcL (0.0-1.3); Monocytes % 7.6 %; Neutrophils # 12.1 K/mcL (1.6-8.9); Platelet Count 215 K/mcL (140-400); Red Blood Count 2.94 M/mcL (4.19-5.50); Red Cell Distribution Width 13.4 % (11.5-14.5); Segmented Neutrophils % 86.3 %
[2020-10-16 14:33] LABS: Sodium, Urine 46.5 mEq/L
[2020-10-16 14:38] LABS: Amphetamine Screen,Urine Negative ng/mL (Cutoff=1000); Barbiturate Screen,Urine Negative ng/mL (Cutoff=200); Benzodiazepines Screen,Urine Negative ng/mL (Cutoff=200); Cannabinoid Screen,Urine Negative ng/mL (Cutoff = 50); Cocaine Screen,Urine Negative ng/mL (Cutoff= 300); Opiate Screen,Urine Negative ng/mL (Cutoff=300); Phencyclidine Screen,Urine Negative ng/mL (Cutoff=25)
[2020-10-16 14:39] LABS: Bilirubin,Urine Negative (Negative); Blood,Urine Large (Negative); Clarity,Urine Ex.Turbid (Clear); Color,Urine Yellow (Yellow); Glucose,Urine (UA) 300 mg/dL (Normal); Ketones,Urine 20 mg/dL (Negative); Leukocyte Esterase,Urine Moderate (Negative); Nitrite,Urine Negative (Negative); PH,Urine 6.5 pH Units (5.0-8.0); Protein,Urine >=600 mg/dL (Neg-Trace); Specific Gravity,Urine 1.017 (1.010-1.025); Urobilinogen,Urine Normal (Normal)
[2020-10-16 15:15] LABS: Granular Casts,Urine Moderate per lpf (None Seen)
[2020-10-16 15:16] LABS: Hyaline Casts,Urine Few per lpf (None Seen); RBC,Urine TNTC per hpf (0-3); Renal Epithelial Cells,Urine Moderate per hpf (None-Few); Sperm,Urine Present (None Seen); WBC,Urine 50-100 per hpf (0-3)
[2020-10-16 15:17] LABS: Bacteria,Urine Few per hpf (None-Few); Transitional Epi Cells,Urine Few per hpf (None-Few)
[2020-10-16 15:20] LABS: Waxy Casts,Urine Few per lpf (None Seen)
[2020-10-16] MEDS: Doxycycline 100 MG in 0.9 % Sodium Chloride Mini Bag 100 ML IVPB SCH (18:27)
[2020-10-16] MEDS: Acyclovir 700 MG in D5% in Water 250 ML IVPB SCH (18:28)
[2020-10-16] MEDS ORDERED: Piperacillin/Tazobactam 3.375 GM in 0.9 % Sodium Chloride Mini Bag 100 ML IVPB SCH (20:00)
[2020-10-16 21:40] LABS: Lambda Qnt Free Light Chains 33.42 mg/L (5.71-26.30)
[2020-10-17 01:01] LABS: Protein/Creatinine Ratio,Urine 24.44 mg/mg (0.00-0.20)
[2020-10-17] MEDS ORDERED: *HR* LORazepam 2 MG/ML VIAL IVP ONE (02:15)
[2020-10-17] MEDS: Acyclovir 700 MG in D5% in Water 250 ML IVPB SCH ×2 (03:46→14:57)
[2020-10-17 05:01] LABS: Hematocrit 25.9 % (37.5-50.1); Hemoglobin 8.8 g/dL (12.9-16.9); Mean Corpuscular Hemoglobin 30.6 pg (28.0-33.3); Mean Corpuscular Volume 89.9 fL (83.0-100.0); Mean Platelet Volume 10.1 fL (9.4-12.4); Platelet Count 209 K/mcL (140-400); Red Blood Count 2.88 M/mcL (4.19-5.50); Red Cell Distribution Width 13.5 % (11.5-14.5); White Blood Count 12.9 K/mcL (4.3-11.1)
[2020-10-17 05:09] LABS: INR 1.2; Prothrombin Time 14.3 Seconds (9.4-12.1)
[2020-10-17 05:19] LABS: Potassium 3.7 mEq/L (3.5-5.1)
[2020-10-17] MEDS: Doxycycline 100 MG in 0.9 % Sodium Chloride Mini Bag 100 ML IVPB SCH ×2 (06:00→18:14)
[2020-10-17] MEDS ORDERED: *HR* Heparin 10,000 UNIT/10 ML VIAL IV PRN (07:20)
[2020-10-17] MEDS ORDERED: 0.9 % Sodium Chloride 250 ML IVC PRN (07:20)
[2020-10-17] MEDS ORDERED: 0.9 % Sodium Chloride 1,000 ML PRIME SCH (07:30)
[2020-10-17] MEDS: Insulin LISPRO 300 UNITS/3 ML VIAL SUBQ SCH ×4 (08:05→19:59)
[2020-10-17 10:04] LABS: Kappa Qnt Free Light Chains 45.36 mg/L (3.30-19.40)
[2020-10-17] MEDS: Aspirin Enteric Coated 81 MG Tablet PO SCH (10:09)
[2020-10-17] MEDS: DilTIAZem CD (24hr) 180 MG CAP.ER.24H PO SCH (10:09)
[2020-10-17] MEDS: Loratadine 10 MG TABLET PO SCH (10:10)
[2020-10-17] MEDS: Isosorbide MONOnitrate (24 HR) 60 MG TAB.ER.24H PO SCH (10:10)
[2020-10-17] MEDS: Haloperidol Lactate 5 MG/ML VIAL IVP PRN (11:36)
[2020-10-17] MEDS: Acetaminophen 325 MG TABLET PO PRN (18:11)
[2020-10-18] MEDS ORDERED: *HR* Metoprolol 5 MG/5 ML VIAL IVP ONE (01:16)
[2020-10-18] MEDS: Acyclovir 700 MG in D5% in Water 250 ML IVPB SCH ×2 (02:32→14:45)
[2020-10-18 02:48] LABS: Hematocrit 27.2 % (37.5-50.1); Hemoglobin 9.3 g/dL (12.9-16.9); Mean Corpuscular HGB Conc 34.2 g/dL (31.6-35.5); Mean Corpuscular Hemoglobin 29.8 pg (28.0-33.3); Mean Corpuscular Volume 87.2 fL (83.0-100.0); Mean Platelet Volume 10.2 fL (9.4-12.4); Platelet Count 222 K/mcL (140-400); Red Blood Count 3.12 M/mcL (4.19-5.50); Red Cell Distribution Width 13.2 % (11.5-14.5); White Blood Count 11.1 K/mcL (4.3-11.1)
[2020-10-18 03:05] LABS: Calcium 7.8 mg/dL (8.6-10.3); Potassium 3.2 mEq/L (3.5-5.1)
[2020-10-18] MEDS: Doxycycline 100 MG in 0.9 % Sodium Chloride Mini Bag 100 ML IVPB SCH ×2 (05:07→17:18)
[2020-10-18] MEDS: amLODIPine 5 MG TABLET PO SCH (06:29)
[2020-10-18] MEDS: Loratadine 10 MG TABLET PO SCH (07:35)
[2020-10-18] MEDS: Insulin LISPRO 300 UNITS/3 ML VIAL SUBQ SCH ×4 (07:35→21:16)
[2020-10-18] MEDS: DilTIAZem CD (24hr) 180 MG CAP.ER.24H PO SCH (07:35)
[2020-10-18] MEDS: Isosorbide MONOnitrate (24 HR) 60 MG TAB.ER.24H PO SCH (07:35)
[2020-10-18] MEDS: Aspirin Enteric Coated 81 MG Tablet PO SCH (07:35)
[2020-10-18] MEDS ORDERED: 0.9 % Sodium Chloride 250 ML IVC PRN (07:38)
[2020-10-18] MEDS ORDERED: *HR* Heparin 10,000 UNIT/10 ML VIAL IV PRN (07:43)
[2020-10-18] MEDS ORDERED: 0.9 % Sodium Chloride 1,000 ML PRIME SCH (07:45)
[2020-10-18] MEDS ORDERED: lisinopriL 10 MG TABLET PO SCH (09:00)
[2020-10-18] MEDS ORDERED: DilTIAZem CD (24hr) 180 MG CAP.ER.24H PO SCH (09:00)
[2020-10-18] MEDS ORDERED: Potassium Chloride Elixir 20 MEQ/15 ML UDC PO ONE (13:38)
[2020-10-18 15:11] LABS: Alpha 2 Globulin (PEP) 1.02 g/dL (0.48-1.05); Beta Globulin (PEP) 0.56 g/dL (0.48-1.10)
[2020-10-18] MEDS: traZODone 50 MG TABLET PO PRN (21:16)
[2020-10-19] MEDS: Haloperidol Lactate 5 MG/ML VIAL IVP PRN (01:00)
[2020-10-19] MEDS: Acyclovir 700 MG in D5% in Water 250 ML IVPB SCH ×2 (02:10→16:06)
[2020-10-19 04:26] LABS: Basophils # 0.1 K/mcL (0.0-0.2); Basophils % 0.7 %; Eosinophils # 1.3 K/mcL (0.0-0.6); Eosinophils % 12.9 %; Hematocrit 25.8 % (37.5-50.1); Hemoglobin 8.8 g/dL (12.9-16.9); Immature Granulocytes % 1.1 % (0-4); Lymphocytes # 0.9 K/mcL (0.6-4.6); Lymphocytes % 8.5 %; Mean Corpuscular HGB Conc 34.1 g/dL (31.6-35.5); Mean Corpuscular Hemoglobin 29.9 pg (28.0-33.3); Mean Corpuscular Volume 87.8 fL (83.0-100.0); Mean Platelet Volume 10.1 fL (9.4-12.4); Monocytes # 0.9 K/mcL (0.0-1.3); Monocytes % 9.2 %; Neutrophils # 6.8 K/mcL (1.6-8.9); Platelet Count 211 K/mcL (140-400); Red Blood Count 2.94 M/mcL (4.19-5.50); Red Cell Distribution Width 12.8 % (11.5-14.5); Segmented Neutrophils % 67.6 %; White Blood Count 10.1 K/mcL (4.3-11.1)
[2020-10-19 04:35] LABS: INR 1.1; Prothrombin Time 13.2 Seconds (9.4-12.1)
[2020-10-19 04:46] LABS: Calcium 7.5 mg/dL (8.6-10.3); Magnesium 1.5 mg/dL (1.6-2.6); Phosphorous 2.8 mg/dL (2.7-4.5); Potassium 3.3 mEq/L (3.5-5.1)
[2020-10-19 06:15] LABS: IFE Reflexed IFE Done; Immunoglobulin A 145 mg/dL (68-408); Immunoglobulin G 309 mg/dL (768-1632); Immunoglobulin M 36 mg/dL (35-263)
[2020-10-19] MEDS: Doxycycline 100 MG in 0.9 % Sodium Chloride Mini Bag 100 ML IVPB SCH ×2 (06:16→18:08)
[2020-10-19 06:18] LABS: Serine Protease-3 Antibody 0 AU/mL (0-19)
[2020-10-19] MEDS: Insulin LISPRO 300 UNITS/3 ML VIAL SUBQ SCH ×4 (07:44→21:56)
[2020-10-19] MEDS: Aspirin Enteric Coated 81 MG Tablet PO SCH (08:51)
[2020-10-19] MEDS: amLODIPine 5 MG TABLET PO SCH (08:51)
[2020-10-19] MEDS: Loratadine 10 MG TABLET PO SCH (08:52)
[2020-10-19] MEDS: DilTIAZem CD (24hr) 180 MG CAP.ER.24H PO SCH (08:52)
[2020-10-19] MEDS: Isosorbide MONOnitrate (24 HR) 60 MG TAB.ER.24H PO SCH (08:52)
[2020-10-19] MEDS ORDERED: *HR* Labetalol 20 MG/4 ML SYRINGE IVP ONE (13:01)
[2020-10-19] MEDS ORDERED: Ferumoxytol 510 MG in 0.9 % Sodium Chloride 100 ML IVPB ONE (14:30)
[2020-10-19 16:15] LABS: Red Blood Cell,CSF < 2000 RBC/mcL
[2020-10-19 16:16] LABS: Appearance,CSF Clear (Clear)
[2020-10-19 16:43] LABS: Glucose,CSF 128 mg/dL (40-70); Total Protein,CSF 62 mg/dL (15-45)
[2020-10-19] MEDS ORDERED: Potassium Chloride Elixir 20 MEQ/15 ML UDC PO ONE (17:49)
[2020-10-19] MEDS: cefTRIAXone 2,000 MG in Water for inj. (sterile) 20 ML IVP SCH (18:07)
[2020-10-20] MEDS: Acyclovir 700 MG in D5% in Water 250 ML IVPB SCH ×2 (02:58→14:54)
[2020-10-20] MEDS: Doxycycline 100 MG in 0.9 % Sodium Chloride Mini Bag 100 ML IVPB SCH (05:32)
[2020-10-20] MEDS: cefTRIAXone 2,000 MG in Water for inj. (sterile) 20 ML IVP SCH ×2 (05:36→17:58)
[2020-10-20 06:14] LABS: Basophils # 0.1 K/mcL (0.0-0.2); Basophils % 0.6 %; Eosinophils # 1.3 K/mcL (0.0-0.6); Eosinophils % 12.9 %; Hematocrit 26.5 % (37.5-50.1); Immature Granulocytes % 1.2 % (0-4); Lymphocytes % 10.5 %; Mean Corpuscular Hemoglobin 29.6 pg (28.0-33.3); Mean Corpuscular Volume 87.2 fL (83.0-100.0); Mean Platelet Volume 9.7 fL (9.4-12.4); Monocytes # 0.8 K/mcL (0.0-1.3); Monocytes % 8.6 %; Neutrophils # 6.5 K/mcL (1.6-8.9); Platelet Count 207 K/mcL (140-400); Red Blood Count 3.04 M/mcL (4.19-5.50); Red Cell Distribution Width 12.5 % (11.5-14.5); Segmented Neutrophils % 66.2 %; White Blood Count 9.8 K/mcL (4.3-11.1)
[2020-10-20 06:33] LABS: Calcium 7.7 mg/dL (8.6-10.3); Phosphorous 3.5 mg/dL (2.7-4.5); Potassium 3.3 mEq/L (3.5-5.1)
[2020-10-20] MEDS: Aspirin Enteric Coated 81 MG Tablet PO SCH (08:32)
[2020-10-20] MEDS: DilTIAZem CD (24hr) 180 MG CAP.ER.24H PO SCH (08:32)
[2020-10-20] MEDS: Isosorbide MONOnitrate (24 HR) 60 MG TAB.ER.24H PO SCH (08:32)
[2020-10-20] MEDS: Loratadine 10 MG TABLET PO SCH (08:32)
[2020-10-20] MEDS: amLODIPine 5 MG TABLET PO SCH (08:32)
[2020-10-20] MEDS: Insulin LISPRO 300 UNITS/3 ML VIAL SUBQ SCH ×4 (08:35→20:27)
[2020-10-20 09:04] LABS: GBM IgG Multiplex Bead Assay 0 AU/mL (0-19); Glomerular Basement Memb IgG NEGATIVE (Negative)
[2020-10-20] MEDS ORDERED: Potassium Chloride Elixir 20 MEQ/15 ML UDC PO ONE (13:54)
[2020-10-20] MEDS: Doxycycline 100 MG CAPSULE PO SCH (17:59)
[2020-10-20] MEDS: traZODone 50 MG TABLET PO PRN (20:28)
[2020-10-20] MEDS: *HR* OxyCODONE/APAP 5/325 TABLET PO PRN (20:28)
[2020-10-20] MEDS ORDERED: hydrOXYzine pamoate 25 MG CAPSULE PO ONE (23:20)
[2020-10-21 00:52] LABS: Phosphorous 3.9 mg/dL (2.7-4.5)
[2020-10-21 00:53] LABS: Troponin I 0.03 ng/mL (< 0.04)
[2020-10-21] MEDS: Acyclovir 700 MG in D5% in Water 250 ML IVPB SCH ×2 (03:04→14:51)
[2020-10-21 03:23] LABS: Basophils # 0.1 K/mcL (0.0-0.2); Basophils % 0.6 %; Eosinophils # 1.2 K/mcL (0.0-0.6); Eosinophils % 13.5 %; Hematocrit 24.8 % (37.5-50.1); Hemoglobin 8.4 g/dL (12.9-16.9); Immature Granulocytes % 2.1 % (0-4); Lymphocytes # 1.3 K/mcL (0.6-4.6); Lymphocytes % 14.6 %; Mean Corpuscular HGB Conc 33.9 g/dL (31.6-35.5); Mean Corpuscular Hemoglobin 29.5 pg (28.0-33.3); Mean Platelet Volume 9.7 fL (9.4-12.4); Monocytes # 0.8 K/mcL (0.0-1.3); Monocytes % 9.4 %; Neutrophils # 5.3 K/mcL (1.6-8.9); Platelet Count 195 K/mcL (140-400); Red Blood Count 2.85 M/mcL (4.19-5.50); Red Cell Distribution Width 12.2 % (11.5-14.5); Segmented Neutrophils % 59.8 %; White Blood Count 8.9 K/mcL (4.3-11.1)
[2020-10-21 03:45] LABS: Calcium 7.5 mg/dL (8.6-10.3); Phosphorous 4.1 mg/dL (2.7-4.5); Potassium 3.6 mEq/L (3.5-5.1)
[2020-10-21] MEDS: cefTRIAXone 2,000 MG in Water for inj. (sterile) 20 ML IVP SCH ×2 (05:24→16:14)
[2020-10-21] MEDS: Doxycycline 100 MG CAPSULE PO SCH ×2 (05:25→16:14)
[2020-10-21] MEDS ORDERED: *HR* Heparin 10,000 UNIT/10 ML VIAL IV PRN (07:16)
[2020-10-21] MEDS ORDERED: 0.9 % Sodium Chloride 250 ML IVC PRN (07:16)
[2020-10-21] MEDS: Insulin LISPRO 300 UNITS/3 ML VIAL SUBQ SCH ×4 (09:39→20:18)
[2020-10-21] MEDS: DilTIAZem CD (24hr) 240 MG CAP.ER.24H PO SCH (11:36)
[2020-10-21] MEDS: Aspirin Enteric Coated 81 MG Tablet PO SCH (11:36)
[2020-10-21] MEDS: Isosorbide MONOnitrate (24 HR) 60 MG TAB.ER.24H PO SCH (11:36)
[2020-10-21] MEDS: *HR* OxyCODONE/APAP 5/325 TABLET PO PRN (20:17)
[2020-10-22] MEDS: Ondansetron 4 MG/2 ML VIAL IVP PRN (02:16)
[2020-10-22] MEDS: Acyclovir 700 MG in D5% in Water 250 ML IVPB SCH ×2 (02:46→14:58)
[2020-10-22 03:21] LABS: Basophils % 0.5 %; Eosinophils % 13.2 %; Hematocrit 23.7 % (37.5-50.1); Hemoglobin 8.2 g/dL (12.9-16.9); Immature Granulocytes % 2.2 % (0-4); Lymphocytes # 1.1 K/mcL (0.6-4.6); Lymphocytes % 14.5 %; Mean Corpuscular HGB Conc 34.6 g/dL (31.6-35.5); Mean Corpuscular Hemoglobin 29.8 pg (28.0-33.3); Mean Corpuscular Volume 86.2 fL (83.0-100.0); Mean Platelet Volume 10.2 fL (9.4-12.4); Monocytes # 0.7 K/mcL (0.0-1.3); Monocytes % 8.9 %; Neutrophils # 4.7 K/mcL (1.6-8.9); Platelet Count 206 K/mcL (140-400); Red Blood Count 2.75 M/mcL (4.19-5.50); Red Cell Distribution Width 12.2 % (11.5-14.5); Segmented Neutrophils % 60.7 %; White Blood Count 7.7 K/mcL (4.3-11.1)
[2020-10-22 03:29] LABS: Phosphorous 3.4 mg/dL (2.7-4.5)
[2020-10-22 03:35] LABS: Calcium 7.4 mg/dL (8.6-10.3); Potassium 3.5 mEq/L (3.5-5.1)
[2020-10-22] MEDS: cefTRIAXone 2,000 MG in Water for inj. (sterile) 20 ML IVP SCH ×2 (05:51→16:40)
[2020-10-22] MEDS: Doxycycline 100 MG CAPSULE PO SCH ×2 (05:52→16:40)
[2020-10-22] MEDS: Isosorbide MONOnitrate (24 HR) 60 MG TAB.ER.24H PO SCH (08:04)
[2020-10-22] MEDS: Aspirin Enteric Coated 81 MG Tablet PO SCH (08:04)
[2020-10-22] MEDS: DilTIAZem CD (24hr) 240 MG CAP.ER.24H PO SCH (08:04)
[2020-10-22] MEDS: Insulin LISPRO 300 UNITS/3 ML VIAL SUBQ SCH ×4 (08:05→21:13)
[2020-10-22] MEDS: *HR* Heparin 5,000 UNIT/ML VIAL SQ SCH ×2 (10:29→16:40)
[2020-10-22 12:14] LABS: Borrelia burgdorferi Abs CSF 0.05 LIV (<=0.99)
[2020-10-22] MEDS: *HR* OxyCODONE/APAP 5/325 TABLET PO PRN (15:31)
[2020-10-22] MEDS: Acetaminophen 325 MG TABLET PO PRN (21:12)
[2020-10-23] MEDS: Acyclovir 700 MG in D5% in Water 250 ML IVPB SCH ×2 (02:32→16:30)
[2020-10-23 03:07] LABS: Basophils % 0.4 %; Eosinophils # 1.2 K/mcL (0.0-0.6); Eosinophils % 13.9 %; Hematocrit 24.1 % (37.5-50.1); Hemoglobin 8.4 g/dL (12.9-16.9); Immature Granulocytes % 4.5 % (0-4); Lymphocytes # 1.4 K/mcL (0.6-4.6); Lymphocytes % 16.5 %; Mean Corpuscular HGB Conc 34.9 g/dL (31.6-35.5); Mean Corpuscular Hemoglobin 30.3 pg (28.0-33.3); Mean Platelet Volume 9.8 fL (9.4-12.4); Monocytes # 0.7 K/mcL (0.0-1.3); Monocytes % 8.7 %; Neutrophils # 4.7 K/mcL (1.6-8.9); Platelet Count 206 K/mcL (140-400); Red Blood Count 2.77 M/mcL (4.19-5.50); White Blood Count 8.4 K/mcL (4.3-11.1)
[2020-10-23 03:26] LABS: Calcium 7.4 mg/dL (8.6-10.3); Potassium 3.6 mEq/L (3.5-5.1)
[2020-10-23 04:24] LABS: HSV Source CSF
[2020-10-23] MEDS: Doxycycline 100 MG CAPSULE PO SCH ×2 (05:02→16:30)
[2020-10-23] MEDS: *HR* Heparin 5,000 UNIT/ML VIAL SQ SCH ×2 (05:02→16:29)
[2020-10-23] MEDS: cefTRIAXone 2,000 MG in Water for inj. (sterile) 20 ML IVP SCH ×2 (05:02→16:30)
[2020-10-23] MEDS: Ondansetron 4 MG/2 ML VIAL IVP PRN (05:03)
[2020-10-23] MEDS: Isosorbide MONOnitrate (24 HR) 60 MG TAB.ER.24H PO SCH (07:50)
[2020-10-23] MEDS: DilTIAZem CD (24hr) 240 MG CAP.ER.24H PO SCH (07:50)
[2020-10-23] MEDS: Aspirin Enteric Coated 81 MG Tablet PO SCH (07:50)
[2020-10-23] MEDS: Insulin LISPRO 300 UNITS/3 ML VIAL SUBQ SCH ×4 (07:51→21:34)
[2020-10-23] MEDS: *HR* OxyCODONE/APAP 5/325 TABLET PO PRN ×2 (09:15→16:30)
[2020-10-23 14:22] LABS: Toxoplasma gondii Source CSF
[2020-10-24] MEDS: Nystatin POWDER 30 GM BOTTLE TP SCH ×3 (00:55→20:21)
[2020-10-24] MEDS: *HR* OxyCODONE/APAP 5/325 TABLET PO PRN ×2 (01:42→12:21)
[2020-10-24] MEDS: Ondansetron 4 MG/2 ML VIAL IVP PRN (01:43)
[2020-10-24] MEDS: Acyclovir 700 MG in D5% in Water 250 ML IVPB SCH ×2 (03:50→17:40)
[2020-10-24 05:15] LABS: Basophils % 0.4 %; Eosinophils # 1.1 K/mcL (0.0-0.6); Eosinophils % 11.5 %; Hemoglobin 8.3 g/dL (12.9-16.9); Immature Granulocytes % 4.9 % (0-4); Lymphocytes # 1.3 K/mcL (0.6-4.6); Lymphocytes % 12.9 %; Mean Corpuscular HGB Conc 34.6 g/dL (31.6-35.5); Mean Corpuscular Hemoglobin 30.3 pg (28.0-33.3); Mean Corpuscular Volume 87.6 fL (83.0-100.0); Mean Platelet Volume 9.9 fL (9.4-12.4); Monocytes # 0.8 K/mcL (0.0-1.3); Neutrophils # 6.1 K/mcL (1.6-8.9); Platelet Count 224 K/mcL (140-400); Red Blood Count 2.74 M/mcL (4.19-5.50); Red Cell Distribution Width 12.1 % (11.5-14.5); Segmented Neutrophils % 62.3 %; White Blood Count 9.8 K/mcL (4.3-11.1)
[2020-10-24 05:38] LABS: Calcium 7.6 mg/dL (8.6-10.3); Potassium 3.8 mEq/L (3.5-5.1)
[2020-10-24] MEDS: cefTRIAXone 2,000 MG in Water for inj. (sterile) 20 ML IVP SCH ×2 (05:56→17:43)
[2020-10-24] MEDS: Doxycycline 100 MG CAPSULE PO SCH ×2 (05:58→17:41)
[2020-10-24] MEDS: *HR* Heparin 5,000 UNIT/ML VIAL SQ SCH ×2 (05:58→17:41)
[2020-10-24] MEDS: Insulin LISPRO 300 UNITS/3 ML VIAL SUBQ SCH ×4 (08:51→20:22)
[2020-10-24] MEDS: Aspirin Enteric Coated 81 MG Tablet PO SCH (08:53)
[2020-10-24] MEDS: DilTIAZem CD (24hr) 240 MG CAP.ER.24H PO SCH (08:53)
[2020-10-24] MEDS: Isosorbide MONOnitrate (24 HR) 60 MG TAB.ER.24H PO SCH (08:53)
[2020-10-24] MEDS ORDERED: *HR* LORazepam 2 MG/ML VIAL IVP PRN (10:29)
[2020-10-24] MEDS: Insulin DETEMIR 100 UNIT/ML X5UNITS SUBQ SCH (12:20)
[2020-10-24] MEDS ORDERED: Perflutren Lipid Microsphere 1.3 ML in 0.9 % Sodium Chloride 8.7 ML IVP PRN (18:11)
[2020-10-24] MEDS: Lactobacillus 1 EACH CAP.SPRINK PO SCH (20:21)
[2020-10-25 03:12] LABS: Basophils % 0.4 %; Eosinophils # 0.9 K/mcL (0.0-0.6); Eosinophils % 9.1 %; Hematocrit 22.1 % (37.5-50.1); Hemoglobin 7.7 g/dL (12.9-16.9); Immature Granulocytes % 5.6 % (0-4); Lymphocytes # 1.4 K/mcL (0.6-4.6); Lymphocytes % 13.5 %; Mean Corpuscular HGB Conc 34.8 g/dL (31.6-35.5); Mean Corpuscular Hemoglobin 30.2 pg (28.0-33.3); Mean Corpuscular Volume 86.7 fL (83.0-100.0); Mean Platelet Volume 9.9 fL (9.4-12.4); Monocytes # 0.8 K/mcL (0.0-1.3); Monocytes % 7.7 %; Neutrophils # 6.5 K/mcL (1.6-8.9); Platelet Count 233 K/mcL (140-400); Red Blood Count 2.55 M/mcL (4.19-5.50); Segmented Neutrophils % 63.7 %; White Blood Count 10.2 K/mcL (4.3-11.1)
[2020-10-25 03:27] LABS: Calcium 7.6 mg/dL (8.6-10.3); Potassium 4.1 mEq/L (3.5-5.1)
[2020-10-25] MEDS: *HR* OxyCODONE/APAP 5/325 TABLET PO PRN ×2 (03:42→19:49)
[2020-10-25 04:00] LABS: Platelet Estimate Normal (Normal)
[2020-10-25] MEDS: Doxycycline 100 MG CAPSULE PO SCH ×2 (05:13→16:36)
[2020-10-25] MEDS: *HR* Heparin 5,000 UNIT/ML VIAL SQ SCH ×2 (05:13→16:38)
[2020-10-25] MEDS: cefTRIAXone 2,000 MG in Water for inj. (sterile) 20 ML IVP SCH ×2 (05:13→16:36)
[2020-10-25] MEDS: Acyclovir 700 MG in D5% in Water 250 ML IVPB SCH ×2 (05:14→15:29)
[2020-10-25] MEDS: DilTIAZem CD (24hr) 240 MG CAP.ER.24H PO SCH (09:18)
[2020-10-25] MEDS: Aspirin Enteric Coated 81 MG Tablet PO SCH (09:19)
[2020-10-25] MEDS: Lactobacillus 1 EACH CAP.SPRINK PO SCH ×2 (09:19→19:49)
[2020-10-25] MEDS: Isosorbide MONOnitrate (24 HR) 60 MG TAB.ER.24H PO SCH (09:19)
[2020-10-25] MEDS: Insulin LISPRO 300 UNITS/3 ML VIAL SUBQ SCH ×4 (09:19→19:48)
[2020-10-25] MEDS: Nystatin POWDER 30 GM BOTTLE TP SCH ×2 (09:20→21:27)
[2020-10-25] MEDS: Insulin DETEMIR 100 UNIT/ML X5UNITS SUBQ SCH (09:20)
[2020-10-25] MEDS: Ondansetron 4 MG/2 ML VIAL IVP PRN (12:11)
[2020-10-25] MEDS ORDERED: Perflutren Lipid Microsphere 1.3 ML in 0.9 % Sodium Chloride 8.7 ML IVP PRN (14:10)
[2020-10-26 01:51] LABS: Calcium 7.7 mg/dL (8.6-10.3); Potassium 4.3 mEq/L (3.5-5.1)
[2020-10-26] MEDS: Acyclovir 700 MG in D5% in Water 250 ML IVPB SCH ×2 (02:25→17:34)
[2020-10-26] MEDS: Acetaminophen 325 MG TABLET PO PRN (02:43)
[2020-10-26] MEDS: *HR* Heparin 5,000 UNIT/ML VIAL SQ SCH ×2 (05:57→17:30)
[2020-10-26] MEDS: *HR* OxyCODONE/APAP 5/325 TABLET PO PRN ×2 (05:57→17:30)
[2020-10-26] MEDS: Doxycycline 100 MG CAPSULE PO SCH ×2 (05:57→17:30)
[2020-10-26] MEDS: cefTRIAXone 2,000 MG in Water for inj. (sterile) 20 ML IVP SCH ×2 (05:57→17:30)
[2020-10-26] MEDS: Lactobacillus 1 EACH CAP.SPRINK PO SCH ×2 (08:13→20:53)
[2020-10-26] MEDS: DilTIAZem CD (24hr) 240 MG CAP.ER.24H PO SCH (08:13)
[2020-10-26] MEDS: Aspirin Enteric Coated 81 MG Tablet PO SCH (08:13)
[2020-10-26] MEDS: Insulin LISPRO 300 UNITS/3 ML VIAL SUBQ SCH ×4 (08:13→20:53)
[2020-10-26] MEDS: Isosorbide MONOnitrate (24 HR) 60 MG TAB.ER.24H PO SCH (08:13)
[2020-10-26] MEDS: Ondansetron 4 MG/2 ML VIAL IVP PRN (08:13)
[2020-10-26] MEDS: Insulin DETEMIR 100 UNIT/ML X5UNITS SUBQ SCH (08:14)
[2020-10-26] MEDS: Nystatin POWDER 30 GM BOTTLE TP SCH ×2 (08:14→20:53)
[2020-10-26 18:11] LABS: Estimated Average Glucose 246 mg/dl; Hemoglobin A1C 10.2 %
[2020-10-27] MEDS: Acyclovir 700 MG in D5% in Water 250 ML IVPB SCH ×2 (02:35→16:07)
[2020-10-27] MEDS ORDERED: Melatonin 3 MG TABLET PO ONE (02:51)
[2020-10-27 04:29] LABS: Calcium 7.8 mg/dL (8.6-10.3); Potassium 4.4 mEq/L (3.5-5.1)
[2020-10-27] MEDS: Doxycycline 100 MG CAPSULE PO SCH ×2 (05:41→17:42)
[2020-10-27] MEDS: cefTRIAXone 2,000 MG in Water for inj. (sterile) 20 ML IVP SCH ×2 (05:41→17:43)
[2020-10-27] MEDS: *HR* Heparin 5,000 UNIT/ML VIAL SQ SCH ×2 (05:41→17:42)
[2020-10-27] MEDS: Isosorbide MONOnitrate (24 HR) 60 MG TAB.ER.24H PO SCH (07:45)
[2020-10-27] MEDS: DilTIAZem CD (24hr) 240 MG CAP.ER.24H PO SCH (07:45)
[2020-10-27] MEDS: Lactobacillus 1 EACH CAP.SPRINK PO SCH ×2 (07:45→19:39)
[2020-10-27] MEDS: Aspirin Enteric Coated 81 MG Tablet PO SCH (07:45)
[2020-10-27] MEDS: Nystatin POWDER 30 GM BOTTLE TP SCH ×2 (07:48→20:12)
[2020-10-27] MEDS: Insulin DETEMIR 100 UNIT/ML X5UNITS SUBQ SCH (07:49)
[2020-10-27] MEDS: Insulin LISPRO 300 UNITS/3 ML VIAL SUBQ SCH ×4 (07:49→20:08)
[2020-10-27 10:35] LABS: Basophils # 0.1 K/mcL (0.0-0.2); Basophils % 0.6 %; Eosinophils # 0.8 K/mcL (0.0-0.6); Eosinophils % 7.2 %; Hematocrit 23.6 % (37.5-50.1); Hemoglobin 8.1 g/dL (12.9-16.9); Immature Granulocytes % 4.6 % (0-4); Lymphocytes # 1.3 K/mcL (0.6-4.6); Lymphocytes % 11.8 %; Mean Corpuscular HGB Conc 34.3 g/dL (31.6-35.5); Mean Corpuscular Hemoglobin 30.3 pg (28.0-33.3); Mean Corpuscular Volume 88.4 fL (83.0-100.0); Mean Platelet Volume 9.7 fL (9.4-12.4); Monocytes # 0.7 K/mcL (0.0-1.3); Monocytes % 5.9 %; Neutrophils # 7.8 K/mcL (1.6-8.9); Platelet Count 274 K/mcL (140-400); Red Blood Count 2.67 M/mcL (4.19-5.50); Segmented Neutrophils % 69.9 %; White Blood Count 11.2 K/mcL (4.3-11.1)
[2020-10-27 10:55] LABS: Calcium 8.2 mg/dL (8.6-10.3); Potassium 4.5 mEq/L (3.5-5.1)
[2020-10-27] MEDS ORDERED: Lidocaine Viscous Oral Soln 15 ML SOLUTION ONE (11:16)
[2020-10-27] MEDS ORDERED: *HR* FentaNYL (PF) 100 MCG/2 ML VIAL ONE (11:17)
[2020-10-27] MEDS ORDERED: *HR* Midazolam HCl 5 MG/5 ML VIAL IVP ONE (11:17)
[2020-10-27] MEDS: *HR* OxyCODONE/APAP 5/325 TABLET PO PRN (17:41)
[2020-10-28] MEDS: Acyclovir 700 MG in D5% in Water 250 ML IVPB SCH ×2 (04:38→16:31)
[2020-10-28 04:57] LABS: Basophils # 0.1 K/mcL (0.0-0.2); Basophils % 0.5 %; Eosinophils # 0.8 K/mcL (0.0-0.6); Hematocrit 23.7 % (37.5-50.1); Immature Granulocytes % 2.3 % (0-4); Lymphocytes # 1.3 K/mcL (0.6-4.6); Lymphocytes % 11.4 %; Mean Corpuscular HGB Conc 33.8 g/dL (31.6-35.5); Mean Corpuscular Hemoglobin 30.3 pg (28.0-33.3); Mean Corpuscular Volume 89.8 fL (83.0-100.0); Monocytes # 0.7 K/mcL (0.0-1.3); Monocytes % 6.3 %; Neutrophils # 8.2 K/mcL (1.6-8.9); Platelet Count 306 K/mcL (140-400); Red Blood Count 2.64 M/mcL (4.19-5.50); Red Cell Distribution Width 12.1 % (11.5-14.5); Segmented Neutrophils % 72.5 %; White Blood Count 11.3 K/mcL (4.3-11.1)
[2020-10-28 05:14] LABS: Calcium 8.1 mg/dL (8.6-10.3); Magnesium 1.7 mg/dL (1.6-2.6); Phosphorous 4.2 mg/dL (2.7-4.5); Potassium 4.4 mEq/L (3.5-5.1)
[2020-10-28] MEDS: cefTRIAXone 2,000 MG in Water for inj. (sterile) 20 ML IVP SCH ×2 (06:58→18:21)
[2020-10-28] MEDS: Doxycycline 100 MG CAPSULE PO SCH ×2 (06:58→18:23)
[2020-10-28] MEDS: *HR* Heparin 5,000 UNIT/ML VIAL SQ SCH ×2 (06:58→18:23)
[2020-10-28] MEDS: Lactobacillus 1 EACH CAP.SPRINK PO SCH ×2 (09:04→20:21)
[2020-10-28] MEDS: Aspirin Enteric Coated 81 MG Tablet PO SCH (09:04)
[2020-10-28] MEDS: *HR* OxyCODONE/APAP 5/325 TABLET PO PRN ×2 (09:04→18:23)
[2020-10-28] MEDS: DilTIAZem CD (24hr) 240 MG CAP.ER.24H PO SCH (09:04)
[2020-10-28] MEDS: Isosorbide MONOnitrate (24 HR) 60 MG TAB.ER.24H PO SCH (09:05)
[2020-10-28] MEDS: Insulin LISPRO 300 UNITS/3 ML VIAL SUBQ SCH ×4 (09:05→20:23)
[2020-10-28] MEDS: Nystatin POWDER 30 GM BOTTLE TP SCH ×2 (09:06→20:24)
[2020-10-28] MEDS: Insulin DETEMIR 100 UNIT/ML X5UNITS SUBQ SCH (09:13)
[2020-10-29 02:13] LABS: Basophils # 0.1 K/mcL (0.0-0.2); Basophils % 0.7 %; Eosinophils # 0.7 K/mcL (0.0-0.6); Eosinophils % 6.6 %; Hematocrit 23.4 % (37.5-50.1); Hemoglobin 8.1 g/dL (12.9-16.9); Immature Granulocytes % 1.8 % (0-4); Lymphocytes # 1.5 K/mcL (0.6-4.6); Lymphocytes % 13.5 %; Mean Corpuscular HGB Conc 34.6 g/dL (31.6-35.5); Mean Corpuscular Hemoglobin 30.7 pg (28.0-33.3); Mean Corpuscular Volume 88.6 fL (83.0-100.0); Mean Platelet Volume 9.5 fL (9.4-12.4); Monocytes # 0.7 K/mcL (0.0-1.3); Monocytes % 6.8 %; Neutrophils # 7.7 K/mcL (1.6-8.9); Platelet Count 295 K/mcL (140-400); Red Blood Count 2.64 M/mcL (4.19-5.50); Red Cell Distribution Width 11.9 % (11.5-14.5); Segmented Neutrophils % 70.6 %; White Blood Count 10.9 K/mcL (4.3-11.1)
[2020-10-29 02:34] LABS: Calcium 8.3 mg/dL (8.6-10.3); Magnesium 1.6 mg/dL (1.6-2.6); Phosphorous 4.4 mg/dL (2.7-4.5); Potassium 4.3 mEq/L (3.5-5.1)
[2020-10-29] MEDS: Acyclovir 700 MG in D5% in Water 250 ML IVPB SCH ×2 (03:16→15:03)
[2020-10-29] MEDS: *HR* OxyCODONE/APAP 5/325 TABLET PO PRN ×2 (03:17→20:06)
[2020-10-29] MEDS: *HR* Heparin 5,000 UNIT/ML VIAL SQ SCH ×2 (06:19→16:56)
[2020-10-29] MEDS: cefTRIAXone 2,000 MG in Water for inj. (sterile) 20 ML IVP SCH ×2 (06:19→16:57)
[2020-10-29] MEDS: Doxycycline 100 MG CAPSULE PO SCH ×2 (06:20→16:56)
[2020-10-29] MEDS: Insulin LISPRO 300 UNITS/3 ML VIAL SUBQ SCH ×4 (08:57→20:16)
[2020-10-29] MEDS: Ondansetron 4 MG/2 ML VIAL IVP PRN (09:03)
[2020-10-29] MEDS: Isosorbide MONOnitrate (24 HR) 60 MG TAB.ER.24H PO SCH (09:04)
[2020-10-29] MEDS: Aspirin Enteric Coated 81 MG Tablet PO SCH (09:04)
[2020-10-29] MEDS: Lactobacillus 1 EACH CAP.SPRINK PO SCH ×2 (09:04→20:05)
[2020-10-29] MEDS: DilTIAZem CD (24hr) 240 MG CAP.ER.24H PO SCH (09:04)
[2020-10-29] MEDS: Nystatin POWDER 30 GM BOTTLE TP SCH ×2 (09:05→21:00)
[2020-10-29] MEDS: Insulin DETEMIR 100 UNIT/ML X5UNITS SUBQ SCH (09:05)
[2020-10-29] MEDS: Acetaminophen 325 MG TABLET PO PRN (13:08)
[2020-10-30] MEDS: Acyclovir 700 MG in D5% in Water 250 ML IVPB SCH ×2 (02:54→14:53)
[2020-10-30] MEDS: Doxycycline 100 MG CAPSULE PO SCH ×2 (06:18→17:34)
[2020-10-30] MEDS: cefTRIAXone 2,000 MG in Water for inj. (sterile) 20 ML IVP SCH ×2 (06:18→17:33)
[2020-10-30] MEDS: *HR* Heparin 5,000 UNIT/ML VIAL SQ SCH ×2 (06:19→17:34)
[2020-10-30] MEDS: *HR* OxyCODONE/APAP 5/325 TABLET PO PRN ×2 (06:20→14:53)
[2020-10-30 06:32] LABS: Basophils # 0.1 K/mcL (0.0-0.2); Basophils % 0.9 %; Eosinophils # 0.9 K/mcL (0.0-0.6); Eosinophils % 8.7 %; Hematocrit 23.3 % (37.5-50.1); Hemoglobin 7.9 g/dL (12.9-16.9); Immature Granulocytes % 1.1 % (0-4); Lymphocytes # 1.4 K/mcL (0.6-4.6); Lymphocytes % 13.9 %; Mean Corpuscular HGB Conc 33.9 g/dL (31.6-35.5); Mean Corpuscular Hemoglobin 30.4 pg (28.0-33.3); Mean Corpuscular Volume 89.6 fL (83.0-100.0); Mean Platelet Volume 9.5 fL (9.4-12.4); Monocytes # 0.6 K/mcL (0.0-1.3); Monocytes % 6.6 %; Neutrophils # 6.7 K/mcL (1.6-8.9); Platelet Count 305 K/mcL (140-400); Red Cell Distribution Width 12.6 % (11.5-14.5); Segmented Neutrophils % 68.8 %; White Blood Count 9.8 K/mcL (4.3-11.1)
[2020-10-30 06:53] LABS: Calcium 8.3 mg/dL (8.6-10.3); Magnesium 1.5 mg/dL (1.6-2.6); Phosphorous 4.7 mg/dL (2.7-4.5); Potassium 4.5 mEq/L (3.5-5.1)
[2020-10-30] MEDS: Aspirin Enteric Coated 81 MG Tablet PO SCH (09:07)
[2020-10-30] MEDS: DilTIAZem CD (24hr) 240 MG CAP.ER.24H PO SCH (09:08)
[2020-10-30] MEDS: Isosorbide MONOnitrate (24 HR) 60 MG TAB.ER.24H PO SCH (09:08)
[2020-10-30] MEDS: Lactobacillus 1 EACH CAP.SPRINK PO SCH ×2 (09:09→20:54)
[2020-10-30] MEDS: Insulin LISPRO 300 UNITS/3 ML VIAL SUBQ SCH ×4 (09:27→20:55)
[2020-10-30] MEDS: Nystatin POWDER 30 GM BOTTLE TP SCH (10:53)
[2020-10-30] MEDS: Insulin DETEMIR 100 UNIT/ML X5UNITS SUBQ SCH (10:53)
[2020-10-30] MEDS: Melatonin 3 MG TABLET PO PRN (23:05)
[2020-10-31] MEDS: *HR* OxyCODONE/APAP 5/325 TABLET PO PRN ×3 (04:35→21:05)
[2020-10-31] MEDS: Nystatin POWDER 30 GM BOTTLE TP SCH ×2 (04:37→08:18)
[2020-10-31] MEDS: *HR* Heparin 5,000 UNIT/ML VIAL SQ SCH ×2 (04:39→17:10)
[2020-10-31 07:08] LABS: Basophils # 0.1 K/mcL (0.0-0.2); Basophils % 1.1 %; Eosinophils # 0.8 K/mcL (0.0-0.6); Eosinophils % 8.6 %; Hematocrit 23.6 % (37.5-50.1); Immature Granulocytes % 1.1 % (0-4); Lymphocytes # 1.2 K/mcL (0.6-4.6); Lymphocytes % 13.2 %; Mean Corpuscular HGB Conc 33.9 g/dL (31.6-35.5); Mean Corpuscular Hemoglobin 30.3 pg (28.0-33.3); Mean Corpuscular Volume 89.4 fL (83.0-100.0); Monocytes # 0.6 K/mcL (0.0-1.3); Monocytes % 6.7 %; Neutrophils # 6.2 K/mcL (1.6-8.9); Platelet Count 319 K/mcL (140-400); Red Blood Count 2.64 M/mcL (4.19-5.50); Red Cell Distribution Width 13.3 % (11.5-14.5); Segmented Neutrophils % 69.3 %; White Blood Count 8.9 K/mcL (4.3-11.1)
[2020-10-31 07:29] LABS: Calcium 8.3 mg/dL (8.6-10.3); Magnesium 1.8 mg/dL (1.6-2.6); Phosphorous 5.3 mg/dL (2.7-4.5); Potassium 4.4 mEq/L (3.5-5.1)
[2020-10-31] MEDS: Insulin LISPRO 300 UNITS/3 ML VIAL SUBQ SCH ×4 (07:43→21:23)
[2020-10-31] MEDS: Lactobacillus 1 EACH CAP.SPRINK PO SCH ×2 (07:53→21:06)
[2020-10-31] MEDS: DilTIAZem CD (24hr) 240 MG CAP.ER.24H PO SCH (07:53)
[2020-10-31] MEDS: Isosorbide MONOnitrate (24 HR) 60 MG TAB.ER.24H PO SCH (07:53)
[2020-10-31] MEDS: Insulin DETEMIR 100 UNIT/ML X5UNITS SUBQ SCH (07:53)
[2020-10-31] MEDS: Aspirin Enteric Coated 81 MG Tablet PO SCH (07:53)
[2020-10-31] MEDS: Melatonin 3 MG TABLET PO PRN (23:29)
[2020-11-01] MEDS: Nystatin POWDER 30 GM BOTTLE TP SCH ×3 (03:40→20:10)
[2020-11-01 06:26] LABS: Basophils # 0.1 K/mcL (0.0-0.2); Basophils % 1.4 %; Eosinophils # 0.7 K/mcL (0.0-0.6); Eosinophils % 8.9 %; Hematocrit 24.8 % (37.5-50.1); Hemoglobin 8.4 g/dL (12.9-16.9); Immature Granulocytes % 0.9 % (0-4); Lymphocytes # 1.3 K/mcL (0.6-4.6); Lymphocytes % 16.2 %; Mean Corpuscular HGB Conc 33.9 g/dL (31.6-35.5); Mean Corpuscular Hemoglobin 30.5 pg (28.0-33.3); Mean Corpuscular Volume 90.2 fL (83.0-100.0); Mean Platelet Volume 9.5 fL (9.4-12.4); Monocytes # 0.5 K/mcL (0.0-1.3); Monocytes % 6.8 %; Neutrophils # 5.1 K/mcL (1.6-8.9); Platelet Count 308 K/mcL (140-400); Red Blood Count 2.75 M/mcL (4.19-5.50); Red Cell Distribution Width 13.9 % (11.5-14.5); Segmented Neutrophils % 65.8 %; White Blood Count 7.8 K/mcL (4.3-11.1)
[2020-11-01 06:46] LABS: Calcium 8.4 mg/dL (8.6-10.3); Magnesium 1.8 mg/dL (1.6-2.6); Phosphorous 5.1 mg/dL (2.7-4.5); Potassium 4.3 mEq/L (3.5-5.1)
[2020-11-01] MEDS: *HR* Heparin 5,000 UNIT/ML VIAL SQ SCH ×2 (07:03→16:28)
[2020-11-01] MEDS: DilTIAZem CD (24hr) 240 MG CAP.ER.24H PO SCH (09:04)
[2020-11-01] MEDS: Aspirin Enteric Coated 81 MG Tablet PO SCH (09:04)
[2020-11-01] MEDS: Lactobacillus 1 EACH CAP.SPRINK PO SCH ×2 (09:04→20:22)
[2020-11-01] MEDS: Isosorbide MONOnitrate (24 HR) 60 MG TAB.ER.24H PO SCH (09:04)
[2020-11-01] MEDS: Insulin LISPRO 300 UNITS/3 ML VIAL SUBQ SCH ×4 (09:06→20:09)
[2020-11-01] MEDS: Insulin DETEMIR 100 UNIT/ML X5UNITS SUBQ SCH (09:06)
[2020-11-01] MEDS: *HR* OxyCODONE/APAP 5/325 TABLET PO PRN (16:27)
[2020-11-02 01:13] LABS: Basophils # 0.1 K/mcL (0.0-0.2); Basophils % 1.1 %; Eosinophils # 0.8 K/mcL (0.0-0.6); Eosinophils % 8.9 %; Hematocrit 24.1 % (37.5-50.1); Hemoglobin 8.3 g/dL (12.9-16.9); Immature Granulocytes % 0.6 % (0-4); Lymphocytes # 1.4 K/mcL (0.6-4.6); Lymphocytes % 15.2 %; Mean Corpuscular HGB Conc 34.4 g/dL (31.6-35.5); Mean Corpuscular Hemoglobin 31.7 pg (28.0-33.3); Mean Platelet Volume 9.6 fL (9.4-12.4); Monocytes # 0.5 K/mcL (0.0-1.3); Monocytes % 5.5 %; Neutrophils # 6.2 K/mcL (1.6-8.9); Platelet Count 317 K/mcL (140-400); Red Blood Count 2.62 M/mcL (4.19-5.50); Red Cell Distribution Width 14.5 % (11.5-14.5); Segmented Neutrophils % 68.7 %
[2020-11-02 01:31] LABS: Calcium 8.5 mg/dL (8.6-10.3); Magnesium 1.8 mg/dL (1.6-2.6); Phosphorous 5.2 mg/dL (2.7-4.5); Potassium 4.7 mEq/L (3.5-5.1)
[2020-11-02] MEDS: *HR* OxyCODONE/APAP 5/325 TABLET PO PRN ×2 (01:35→08:33)
[2020-11-02] MEDS: *HR* Heparin 5,000 UNIT/ML VIAL SQ SCH (05:28)
[2020-11-02] MEDS: Insulin LISPRO 300 UNITS/3 ML VIAL SUBQ SCH ×2 (07:27→12:08)
[2020-11-02] MEDS: Aspirin Enteric Coated 81 MG Tablet PO SCH (08:26)
[2020-11-02] MEDS: DilTIAZem CD (24hr) 240 MG CAP.ER.24H PO SCH (08:26)
[2020-11-02] MEDS: Lactobacillus 1 EACH CAP.SPRINK PO SCH (08:26)
[2020-11-02] MEDS: Isosorbide MONOnitrate (24 HR) 60 MG TAB.ER.24H PO SCH (08:27)
[2020-11-02] MEDS: Insulin DETEMIR 100 UNIT/ML X5UNITS SUBQ SCH (08:28)
[2020-11-02] MEDS: Ondansetron 4 MG/2 ML VIAL IVP PRN (08:31)
[2020-11-02] MEDS: Nystatin POWDER 30 GM BOTTLE TP SCH (08:47)
[2020-11-02 10:48] VITALS: BP 150/72
[2020-11-02 12:05] LABS: Adenovirus Not Detected (Not Detect); Bordetella Pertussis Not Detected (Not Detect); Chlamydophila pneumoniae Not Detected (Not Detect); Coronavirus 229E Not Detected (Not Detect); Coronavirus HKU1 Not Detected (Not Detect); Coronavirus NL63 Not Detected (Not Detect); Coronavirus OC43 Not Detected (Not Detect); Human Metapneumovirus Not Detected (Not Detect); Human Rhinovirus/Enterovirus Not Detected (Not Detect); Influenza A Subtype 2009 H1 Not Detected (Not Detect); Influenza B Not Detected (Not Detect); Mycoplasma pneumoniae Not Detected (Not Detect); Parainfluenza Virus 1 Not Detected (Not Detect); Parainfluenza Virus 2 Not Detected (Not Detect); Parainfluenza Virus 3 Not Detected (Not Detect); Parainfluenza Virus 4 Not Detected (Not Detect); Respiratory Syncytial Virus Not Detected (Not Detect); SARS-CoV-2 Not Detected (Not Detect)
== END 2020-11-02 13:59 | DRG 469 ==
LOC: 3ANU → SUATTDRO 23:03 → 2ANU 10-16 12:54
PROVIDERS: ADMIT Student in an Organized Health Care Education/Training Program; ATTEND Internal Medicine
PROC: IRLUMPX (2020-10-19 08:00)

== ENCOUNTER 2021-01-25 17:48 | Inpatient (IN) ==
[2021-01-25] MEDS ORDERED: *HR* Dextrose 50 % in Water (Vial) 50 ML VIAL IVP PRN (21:45)
[2021-01-25] MEDS ORDERED: D5% in Water 1,000 ML IVC PRN (21:45)
[2021-01-25] MEDS ORDERED: Dextrose Gel 15 GM/37.5 ML TUBE PO PRN ×2 (21:45)
[2021-01-25] MEDS ORDERED: *HR* Promethazine 25 MG/ML VIAL IM PRN (21:47)
[2021-01-25] MEDS ORDERED: Naloxone 0.4 MG/ML INJ IVP PRN (21:47)
[2021-01-25] MEDS: 0.9 % Sodium Chloride 1,000 ML IVC SCH (22:31)
[2021-01-25] MEDS: cefTRIAXone 1,000 MG in Water for inj. (sterile) 10 ML IVP SCH (22:31)
[2021-01-25] MEDS: Melatonin 3 MG TABLET PO PRN (22:31)
[2021-01-25] MEDS ORDERED: *HR* Metoprolol 5 MG/5 ML VIAL IVP ONE (23:34)
[2021-01-26] MEDS ORDERED: Morphine Sulfate 2 MG/ML SYRINGE IVP ONE (03:24)
[2021-01-26 06:15] LABS: Basophils # 0.1 K/mcL (0.0-0.2); Basophils % 0.5 %; Eosinophils # 0.3 K/mcL (0.0-0.6); Eosinophils % 1.9 %; Hematocrit 30.8 % (37.5-50.1); Hemoglobin 10.5 g/dL (12.9-16.9); Immature Granulocytes % 1.2 % (0-4); Lymphocytes # 1.7 K/mcL (0.6-4.6); Lymphocytes % 11.7 %; Mean Corpuscular HGB Conc 34.1 g/dL (31.6-35.5); Mean Corpuscular Hemoglobin 29.7 pg (28.0-33.3); Mean Corpuscular Volume 87.3 fL (83.0-100.0); Mean Platelet Volume 10.4 fL (9.4-12.4); Monocytes # 0.8 K/mcL (0.0-1.3); Monocytes % 5.2 %; Neutrophils # 11.9 K/mcL (1.6-8.9); Platelet Count 299 K/mcL (140-400); Red Blood Count 3.53 M/mcL (4.19-5.50); Red Cell Distribution Width 11.9 % (11.5-14.5); Segmented Neutrophils % 79.5 %; White Blood Count 14.9 K/mcL (4.3-11.1)
[2021-01-26 06:27] LABS: Albumin 1.9 g/dL (3.5-5.7); Albumin/Globulin Ratio 0.7 (1.1-2.2); Bilirubin,Direct 0.1 mg/dL (0.0-0.2); Bilirubin,Indirect 0.1 mg/dL (0.0-1.0); Bilirubin,Total 0.2 mg/dL (0.3-1.0); Calcium 7.8 mg/dL (8.6-10.3); Globulin 2.9 g/dL (2.4-3.5); Potassium 3.6 mEq/L (3.5-5.1); Total Protein 4.8 g/dL (6.4-8.9)
[2021-01-26] MEDS: Aspirin Enteric Coated 81 MG Tablet PO SCH (08:06)
[2021-01-26] MEDS: cefTRIAXone 1,000 MG in Water for inj. (sterile) 10 ML IVP SCH (08:06)
[2021-01-26] MEDS: Isosorbide MONOnitrate (24 HR) 60 MG TAB.ER.24H PO SCH (08:06)
[2021-01-26] MEDS: Insulin LISPRO 300 UNITS/3 ML VIAL SUBQ SCH ×4 (08:07→21:01)
[2021-01-26] MEDS: DilTIAZem CD (24hr) 240 MG CAP.ER.24H PO SCH (08:07)
[2021-01-26] MEDS: Insulin DETEMIR 100 UNIT/ML X5UNITS SUBQ SCH (08:08)
[2021-01-26] MEDS: 0.9 % Sodium Chloride 1,000 ML IVC SCH (12:14)
[2021-01-26 13:38] LABS: Bacteria,Urine Few per hpf (None-Few); Bilirubin,Urine Negative (Negative); Blood,Urine Moderate (Negative); Clarity,Urine Clear (Clear); Color,Urine Light-Yellow (Yellow); Glucose,Urine (UA) >=1000 mg/dL (Normal); Ketones,Urine Trace mg/dL (Negative); Leukocyte Esterase,Urine Negative (Negative); Mucus,Urine Few per lpf (None-Few); Nitrite,Urine Negative (Negative); PH,Urine 6.5 pH Units (5.0-8.0); Protein,Urine >=600 mg/dL (Neg-Trace); RBC,Urine 0-3 per hpf (0-3); Specific Gravity,Urine 1.018 (1.010-1.025); Urobilinogen,Urine Normal (Normal); WBC,Urine 30-50 per hpf (0-3)
[2021-01-26] MEDS: *HR* HYDROcodone/Acet 5/325 mg TABLET PO PRN (17:12)
[2021-01-27] MEDS: *HR* HYDROcodone/Acet 5/325 mg TABLET PO PRN ×3 (01:32→15:54)
[2021-01-27] MEDS: Melatonin 3 MG TABLET PO PRN (01:33)
[2021-01-27] MEDS: Isosorbide MONOnitrate (24 HR) 60 MG TAB.ER.24H PO SCH (07:58)
[2021-01-27] MEDS: Insulin DETEMIR 100 UNIT/ML X5UNITS SUBQ SCH (08:00)
[2021-01-27] MEDS: DilTIAZem CD (24hr) 240 MG CAP.ER.24H PO SCH (08:00)
[2021-01-27] MEDS: Aspirin Enteric Coated 81 MG Tablet PO SCH (08:00)
[2021-01-27] MEDS: cefTRIAXone 1,000 MG in Water for inj. (sterile) 10 ML IVP SCH (08:00)
[2021-01-27] MEDS: Insulin LISPRO 300 UNITS/3 ML VIAL SUBQ SCH ×4 (08:00→20:26)
[2021-01-27 08:39] LABS: Hematocrit 29.6 % (37.5-50.1); Mean Corpuscular HGB Conc 33.8 g/dL (31.6-35.5); Mean Corpuscular Hemoglobin 30.3 pg (28.0-33.3); Mean Corpuscular Volume 89.7 fL (83.0-100.0); Platelet Count 269 K/mcL (140-400); Red Cell Distribution Width 11.9 % (11.5-14.5); White Blood Count 12.7 K/mcL (4.3-11.1)
[2021-01-27 09:03] LABS: Albumin/Globulin Ratio 0.7 (1.1-2.2); Bilirubin,Indirect 0.1 mg/dL (0.0-1.0); Bilirubin,Total 0.1 mg/dL (0.3-1.0); Calcium 7.7 mg/dL (8.6-10.3); Globulin 2.8 g/dL (2.4-3.5); Magnesium 1.9 mg/dL (1.6-2.6); Potassium 3.6 mEq/L (3.5-5.1); Total Protein 4.8 g/dL (6.4-8.9)
[2021-01-27 11:05] LABS: Estimated Average Glucose 280 mg/dl; Hemoglobin A1C 11.4 %
[2021-01-27] MEDS ORDERED: Sodium Bicarbonate 150 MEQ in Water for inj. (sterile) 1,000 ML IVC SCH (13:58)
[2021-01-28 05:56] LABS: Hematocrit 26.8 % (37.5-50.1); Hemoglobin 9.4 g/dL (12.9-16.9); Mean Corpuscular HGB Conc 35.1 g/dL (31.6-35.5); Mean Corpuscular Hemoglobin 30.4 pg (28.0-33.3); Mean Corpuscular Volume 86.7 fL (83.0-100.0); Mean Platelet Volume 9.7 fL (9.4-12.4); Platelet Count 316 K/mcL (140-400); Red Blood Count 3.09 M/mcL (4.19-5.50); Red Cell Distribution Width 11.6 % (11.5-14.5); White Blood Count 14.5 K/mcL (4.3-11.1)
[2021-01-28 06:15] LABS: Calcium 7.9 mg/dL (8.6-10.3); Potassium 3.7 mEq/L (3.5-5.1)
[2021-01-28] MEDS: *HR* HYDROcodone/Acet 5/325 mg TABLET PO PRN (06:29)
[2021-01-28] MEDS: Aspirin Enteric Coated 81 MG Tablet PO SCH (07:46)
[2021-01-28] MEDS: Isosorbide MONOnitrate (24 HR) 60 MG TAB.ER.24H PO SCH (07:47)
[2021-01-28] MEDS: DilTIAZem CD (24hr) 240 MG CAP.ER.24H PO SCH (07:47)
[2021-01-28] MEDS: Insulin DETEMIR 100 UNIT/ML X5UNITS SUBQ SCH (08:04)
[2021-01-28] MEDS: Ondansetron 4 MG/2 ML VIAL IVP PRN (08:11)
[2021-01-28] MEDS: Insulin LISPRO 300 UNITS/3 ML VIAL SUBQ SCH ×4 (14:28→22:42)
[2021-01-28] MEDS: cefTRIAXone 1,000 MG in Water for inj. (sterile) 10 ML IVP SCH (14:57)
[2021-01-29] MEDS: Melatonin 3 MG TABLET PO PRN (02:25)
[2021-01-29 07:14] LABS: Hematocrit 26.4 % (37.5-50.1); Hemoglobin 9.1 g/dL (12.9-16.9); Mean Corpuscular HGB Conc 34.5 g/dL (31.6-35.5); Mean Corpuscular Hemoglobin 30.1 pg (28.0-33.3); Mean Corpuscular Volume 87.4 fL (83.0-100.0); Mean Platelet Volume 9.6 fL (9.4-12.4); Platelet Count 357 K/mcL (140-400); Red Blood Count 3.02 M/mcL (4.19-5.50); Red Cell Distribution Width 11.6 % (11.5-14.5); White Blood Count 13.7 K/mcL (4.3-11.1)
[2021-01-29 08:01] LABS: Calcium 7.8 mg/dL (8.6-10.3); Potassium 3.8 mEq/L (3.5-5.1)
[2021-01-29] MEDS: Isosorbide MONOnitrate (24 HR) 60 MG TAB.ER.24H PO SCH (08:46)
[2021-01-29] MEDS: Aspirin Enteric Coated 81 MG Tablet PO SCH (08:46)
[2021-01-29] MEDS: DilTIAZem CD (24hr) 240 MG CAP.ER.24H PO SCH (08:46)
[2021-01-29] MEDS: cefTRIAXone 1,000 MG in Water for inj. (sterile) 10 ML IVP SCH (08:47)
[2021-01-29] MEDS: Insulin DETEMIR 100 UNIT/ML X5UNITS SUBQ SCH (08:49)
[2021-01-29] MEDS: Insulin LISPRO 300 UNITS/3 ML VIAL SUBQ SCH ×4 (08:50→21:49)
[2021-01-29 13:16] LABS: Calcium 7.7 mg/dL (8.6-10.3); Potassium 3.9 mEq/L (3.5-5.1)
[2021-01-29 13:52] LABS: Uric Acid 5.8 mg/dL (2.3-7.6)
[2021-01-29 14:55] LABS: Bacteria,Urine Few per hpf (None-Few); Bilirubin,Urine Negative (Negative); Blood,Urine Moderate (Negative); Clarity,Urine Clear (Clear); Color,Urine Light-Yellow (Yellow); Glucose,Urine (UA) 500 mg/dL (Normal); Ketones,Urine Trace mg/dL (Negative); Leukocyte Esterase,Urine Small (Negative); Nitrite,Urine Negative (Negative); PH,Urine 6.5 pH Units (5.0-8.0); Protein,Urine >=300 mg/dL (Neg-Trace); RBC,Urine 0-3 per hpf (0-3); Specific Gravity,Urine 1.014 (1.010-1.025); Urobilinogen,Urine Normal (Normal); WBC,Urine 30-50 per hpf (0-3)
[2021-01-29 14:57] LABS: Sodium, Urine 38.6 mEq/L
[2021-01-30] MEDS: Acetaminophen 325 MG TABLET PO PRN ×2 (02:00→17:11)
[2021-01-30] MEDS: Melatonin 3 MG TABLET PO PRN (02:05)
[2021-01-30 07:56] LABS: Albumin 2.1 g/dL (3.5-5.7); Calcium 7.9 mg/dL (8.6-10.3); Phosphorous 5.8 mg/dL (2.7-4.5); Potassium 3.8 mEq/L (3.5-5.1)
[2021-01-30] MEDS: Insulin LISPRO 300 UNITS/3 ML VIAL SUBQ SCH ×4 (08:45→20:57)
[2021-01-30] MEDS: Insulin DETEMIR 100 UNIT/ML X5UNITS SUBQ SCH (08:45)
[2021-01-30] MEDS: cefTRIAXone 1,000 MG in Water for inj. (sterile) 10 ML IVP SCH (09:05)
[2021-01-30] MEDS: Aspirin Enteric Coated 81 MG Tablet PO SCH (09:06)
[2021-01-30] MEDS: DilTIAZem CD (24hr) 240 MG CAP.ER.24H PO SCH (09:06)
[2021-01-30] MEDS: Isosorbide MONOnitrate (24 HR) 60 MG TAB.ER.24H PO SCH (09:06)
[2021-01-31] MEDS ORDERED: Nitroglycerin 0.4 MG TAB.SUBL SL PRN (01:06)
[2021-01-31 01:55] LABS: Hematocrit 24.8 % (37.5-50.1); Hemoglobin 8.6 g/dL (12.9-16.9); Mean Corpuscular HGB Conc 34.7 g/dL (31.6-35.5); Mean Corpuscular Hemoglobin 30.2 pg (28.0-33.3); Mean Platelet Volume 9.3 fL (9.4-12.4); Platelet Count 414 K/mcL (140-400); Red Blood Count 2.85 M/mcL (4.19-5.50); Red Cell Distribution Width 11.5 % (11.5-14.5); White Blood Count 13.2 K/mcL (4.3-11.1)
[2021-01-31 02:02] LABS: Albumin 2.2 g/dL (3.5-5.7); Albumin/Globulin Ratio 0.7 (1.1-2.2); Bilirubin,Indirect 0.1 mg/dL (0.0-1.0); Bilirubin,Total 0.1 mg/dL (0.3-1.0); Calcium 8.2 mg/dL (8.6-10.3); Magnesium 1.8 mg/dL (1.6-2.6); Phosphorous 5.4 mg/dL (2.7-4.5); Total Protein 5.2 g/dL (6.4-8.9)
[2021-01-31] MEDS: Acetaminophen 325 MG TABLET PO PRN ×2 (03:26→16:08)
[2021-01-31] MEDS: Insulin LISPRO 300 UNITS/3 ML VIAL SUBQ SCH ×4 (08:01→21:00)
[2021-01-31] MEDS: Aspirin Enteric Coated 81 MG Tablet PO SCH (08:10)
[2021-01-31] MEDS: cefTRIAXone 1,000 MG in Water for inj. (sterile) 10 ML IVP SCH (08:12)
[2021-01-31] MEDS: Isosorbide MONOnitrate (24 HR) 60 MG TAB.ER.24H PO SCH (08:14)
[2021-01-31] MEDS: DilTIAZem CD (24hr) 240 MG CAP.ER.24H PO SCH (08:14)
[2021-01-31] MEDS: Insulin DETEMIR 100 UNIT/ML X5UNITS SUBQ SCH (08:19)
[2021-01-31 15:20] LABS: Bacteria,Urine Few per hpf (None-Few); Bilirubin,Urine Negative (Negative); Blood,Urine Moderate (Negative); Clarity,Urine Clear (Clear); Color,Urine Light-Yellow (Yellow); Glucose,Urine (UA) >=1000 mg/dL (Normal); Hyaline Casts,Urine Few per lpf (None Seen); Ketones,Urine Negative (Negative); Leukocyte Esterase,Urine Small (Negative); Mucus,Urine Few per lpf (None-Few); Nitrite,Urine Negative (Negative); Protein,Urine >=600 mg/dL (Neg-Trace); RBC,Urine TNTC per hpf (0-3); Specific Gravity,Urine 1.018 (1.010-1.025); Squamous Epithelial Cell,Urine Few per hpf (None-Few); Urobilinogen,Urine Normal (Normal); WBC,Urine 50-100 per hpf (0-3)
[2021-01-31] MEDS: levoFLOXacin 750 MG TABLET PO SCH (17:18)
[2021-01-31] MEDS: *HR* Heparin 5,000 UNIT/ML VIAL SQ SCH (17:18)
[2021-01-31] MEDS: ARIPiprazole 5 MG TABLET PO SCH (20:02)
[2021-01-31] MEDS: Melatonin 3 MG TABLET PO PRN (20:03)
[2021-01-31] MEDS: Lactobacillus 1 EACH CAP.SPRINK PO SCH (20:03)
[2021-01-31] MEDS: traZODone 50 MG TABLET PO PRN (20:03)
[2021-02-01] MEDS: Acetaminophen 325 MG TABLET PO PRN ×2 (03:44→10:38)
[2021-02-01] MEDS: *HR* Heparin 5,000 UNIT/ML VIAL SQ SCH ×2 (04:56→18:05)
[2021-02-01 07:39] LABS: Basophils # 0.1 K/mcL (0.0-0.2); Basophils % 0.6 %; Eosinophils # 0.5 K/mcL (0.0-0.6); Hematocrit 26.6 % (37.5-50.1); Hemoglobin 9.3 g/dL (12.9-16.9); Immature Granulocytes % 2.7 % (0-4); Lymphocytes # 1.3 K/mcL (0.6-4.6); Lymphocytes % 10.3 %; Mean Corpuscular Hemoglobin 30.5 pg (28.0-33.3); Mean Corpuscular Volume 87.2 fL (83.0-100.0); Mean Platelet Volume 9.2 fL (9.4-12.4); Monocytes # 0.7 K/mcL (0.0-1.3); Monocytes % 5.3 %; Neutrophils # 9.9 K/mcL (1.6-8.9); Platelet Count 425 K/mcL (140-400); Red Blood Count 3.05 M/mcL (4.19-5.50); Red Cell Distribution Width 11.7 % (11.5-14.5); Segmented Neutrophils % 77.1 %; White Blood Count 12.8 K/mcL (4.3-11.1)
[2021-02-01 08:05] LABS: Albumin 2.2 g/dL (3.5-5.7); Albumin/Globulin Ratio 0.7 (1.1-2.2); Bilirubin,Indirect 0.1 mg/dL (0.0-1.0); Bilirubin,Total 0.1 mg/dL (0.3-1.0); Calcium 8.3 mg/dL (8.6-10.3); Magnesium 1.7 mg/dL (1.6-2.6); Potassium 3.9 mEq/L (3.5-5.1); Total Protein 5.2 g/dL (6.4-8.9)
[2021-02-01 08:23] LABS: Folate 6.1 ng/mL (3.0-16.0)
[2021-02-01] MEDS: Aspirin Enteric Coated 81 MG Tablet PO SCH (08:38)
[2021-02-01] MEDS: DilTIAZem CD (24hr) 240 MG CAP.ER.24H PO SCH (08:38)
[2021-02-01] MEDS: Lactobacillus 1 EACH CAP.SPRINK PO SCH ×2 (08:38→21:50)
[2021-02-01] MEDS: Isosorbide MONOnitrate (24 HR) 60 MG TAB.ER.24H PO SCH (08:38)
[2021-02-01] MEDS: Insulin DETEMIR 100 UNIT/ML X5UNITS SUBQ SCH (08:50)
[2021-02-01] MEDS: amLODIPine 5 MG TABLET PO SCH (08:50)
[2021-02-01] MEDS: Insulin LISPRO 300 UNITS/3 ML VIAL SUBQ SCH ×4 (08:51→21:50)
[2021-02-01] MEDS: ARIPiprazole 5 MG TABLET PO SCH (21:49)
[2021-02-01] MEDS: traZODone 50 MG TABLET PO PRN (21:49)
[2021-02-02 02:55] LABS: White Blood Count 11.9 K/mcL (4.3-11.1)
[2021-02-02 02:56] LABS: Basophils # 0.1 K/mcL (0.0-0.2); Basophils % 0.6 %; Eosinophils # 0.5 K/mcL (0.0-0.6); Eosinophils % 3.9 %; Hematocrit 25.6 % (37.5-50.1); Hemoglobin 8.7 g/dL (12.9-16.9); Immature Granulocytes % 2.9 % (0-4); Lymphocytes # 1.6 K/mcL (0.6-4.6); Lymphocytes % 13.4 %; Mean Corpuscular Hemoglobin 29.9 pg (28.0-33.3); Mean Platelet Volume 9.7 fL (9.4-12.4); Monocytes # 0.6 K/mcL (0.0-1.3); Monocytes % 4.6 %; Neutrophils # 8.9 K/mcL (1.6-8.9); Platelet Count 386 K/mcL (140-400); Red Blood Count 2.91 M/mcL (4.19-5.50); Red Cell Distribution Width 11.7 % (11.5-14.5); Segmented Neutrophils % 74.6 %
[2021-02-02 03:00] LABS: Calcium 7.9 mg/dL (8.6-10.3); Magnesium 1.7 mg/dL (1.6-2.6); Potassium 4.6 mEq/L (3.5-5.1)
[2021-02-02] MEDS: *HR* Heparin 5,000 UNIT/ML VIAL SQ SCH ×2 (06:13→16:29)
[2021-02-02] MEDS: Insulin LISPRO 300 UNITS/3 ML VIAL SUBQ SCH ×4 (07:28→20:08)
[2021-02-02] MEDS: amLODIPine 5 MG TABLET PO SCH (09:31)
[2021-02-02] MEDS: Lactobacillus 1 EACH CAP.SPRINK PO SCH ×2 (09:31→20:07)
[2021-02-02] MEDS: Isosorbide MONOnitrate (24 HR) 60 MG TAB.ER.24H PO SCH (09:31)
[2021-02-02] MEDS: DilTIAZem CD (24hr) 240 MG CAP.ER.24H PO SCH (09:31)
[2021-02-02] MEDS: Aspirin Enteric Coated 81 MG Tablet PO SCH (09:31)
[2021-02-02] MEDS: Insulin DETEMIR 100 UNIT/ML X5UNITS SUBQ SCH (09:32)
[2021-02-02] MEDS: levoFLOXacin 750 MG TABLET PO SCH (16:29)
[2021-02-02] MEDS ORDERED: polyethylene glycoL 3350 17 GM POWD.PACK PO PRN (17:03)
[2021-02-02] MEDS: ARIPiprazole 5 MG TABLET PO SCH (20:08)
[2021-02-03 04:42] LABS: Calcium 8.2 mg/dL (8.6-10.3); Magnesium 1.7 mg/dL (1.6-2.6); Potassium 4.9 mEq/L (3.5-5.1)
[2021-02-03] MEDS: *HR* Heparin 5,000 UNIT/ML VIAL SQ SCH ×2 (05:32→18:06)
[2021-02-03 05:50] LABS: Basophils # 0.1 K/mcL (0.0-0.2); Basophils % 0.8 %; Eosinophils # 0.5 K/mcL (0.0-0.6); Eosinophils % 4.2 %; Hematocrit 25.8 % (37.5-50.1); Hemoglobin 8.8 g/dL (12.9-16.9); Immature Granulocytes % 2.6 % (0-4); Lymphocytes # 1.6 K/mcL (0.6-4.6); Lymphocytes % 13.3 %; Mean Corpuscular HGB Conc 34.1 g/dL (31.6-35.5); Mean Platelet Volume 9.3 fL (9.4-12.4); Monocytes # 0.7 K/mcL (0.0-1.3); Monocytes % 5.6 %; Neutrophils # 8.6 K/mcL (1.6-8.9); Platelet Count 393 K/mcL (140-400); Red Blood Count 2.93 M/mcL (4.19-5.50); Red Cell Distribution Width 11.9 % (11.5-14.5); Segmented Neutrophils % 73.5 %; White Blood Count 11.8 K/mcL (4.3-11.1)
[2021-02-03 05:51] LABS: Mean Corpuscular Volume 88.1 fL (83.0-100.0)
[2021-02-03] MEDS ORDERED: *HR* LORazepam 2 MG/ML VIAL IVP ONE ×2 (05:53→09:49)
[2021-02-03] MEDS: DilTIAZem CD (24hr) 240 MG CAP.ER.24H PO SCH (09:17)
[2021-02-03] MEDS: Lactobacillus 1 EACH CAP.SPRINK PO SCH ×2 (09:17→21:10)
[2021-02-03] MEDS: Isosorbide MONOnitrate (24 HR) 60 MG TAB.ER.24H PO SCH (09:18)
[2021-02-03] MEDS: Aspirin Enteric Coated 81 MG Tablet PO SCH (09:18)
[2021-02-03] MEDS: Insulin LISPRO 300 UNITS/3 ML VIAL SUBQ SCH ×4 (09:19→21:14)
[2021-02-03] MEDS: amLODIPine 5 MG TABLET PO SCH (09:19)
[2021-02-03] MEDS: Insulin DETEMIR 100 UNIT/ML X5UNITS SUBQ SCH (09:20)
[2021-02-03] MEDS: ARIPiprazole 5 MG TABLET PO SCH (21:09)
[2021-02-03] MEDS: traZODone 50 MG TABLET PO PRN (22:56)
[2021-02-04 01:58] LABS: Basophils # 0.1 K/mcL (0.0-0.2); Basophils % 0.8 %; Eosinophils # 0.5 K/mcL (0.0-0.6); Eosinophils % 4.3 %; Hematocrit 25.5 % (37.5-50.1); Hemoglobin 8.6 g/dL (12.9-16.9); Immature Granulocytes % 2.2 % (0-4); Lymphocytes # 1.4 K/mcL (0.6-4.6); Lymphocytes % 12.1 %; Mean Corpuscular HGB Conc 33.7 g/dL (31.6-35.5); Mean Corpuscular Hemoglobin 30.2 pg (28.0-33.3); Mean Corpuscular Volume 89.5 fL (83.0-100.0); Mean Platelet Volume 9.2 fL (9.4-12.4); Monocytes # 0.6 K/mcL (0.0-1.3); Monocytes % 5.1 %; Neutrophils # 8.8 K/mcL (1.6-8.9); Platelet Count 369 K/mcL (140-400); Red Blood Count 2.85 M/mcL (4.19-5.50); Red Cell Distribution Width 11.8 % (11.5-14.5); Segmented Neutrophils % 75.5 %; White Blood Count 11.6 K/mcL (4.3-11.1)
[2021-02-04 02:16] LABS: Calcium 8.2 mg/dL (8.6-10.3); Magnesium 1.6 mg/dL (1.6-2.6); Potassium 4.8 mEq/L (3.5-5.1)
[2021-02-04] MEDS: *HR* Heparin 5,000 UNIT/ML VIAL SQ SCH ×2 (06:16→16:58)
[2021-02-04] MEDS: DilTIAZem CD (24hr) 240 MG CAP.ER.24H PO SCH (09:19)
[2021-02-04] MEDS: Isosorbide MONOnitrate (24 HR) 60 MG TAB.ER.24H PO SCH (09:20)
[2021-02-04] MEDS: Insulin DETEMIR 100 UNIT/ML X5UNITS SUBQ SCH (09:20)
[2021-02-04] MEDS: Aspirin Enteric Coated 81 MG Tablet PO SCH (09:20)
[2021-02-04] MEDS: Lactobacillus 1 EACH CAP.SPRINK PO SCH ×2 (09:20→21:06)
[2021-02-04] MEDS: Finasteride 5 MG TABLET PO SCH (09:20)
[2021-02-04] MEDS: amLODIPine 5 MG TABLET PO SCH (09:20)
[2021-02-04] MEDS: Insulin LISPRO 300 UNITS/3 ML VIAL SUBQ SCH ×4 (09:21→21:01)
[2021-02-04] MEDS: levoFLOXacin 750 MG TABLET PO SCH (16:58)
[2021-02-04] MEDS: ARIPiprazole 5 MG TABLET PO SCH (21:06)
[2021-02-05 01:37] LABS: Basophils # 0.1 K/mcL (0.0-0.2); Basophils % 0.5 %; Eosinophils # 0.5 K/mcL (0.0-0.6); Eosinophils % 4.1 %; Hematocrit 26.6 % (37.5-50.1); Hemoglobin 9.2 g/dL (12.9-16.9); Immature Granulocytes % 2.1 % (0-4); Lymphocytes # 1.4 K/mcL (0.6-4.6); Lymphocytes % 11.8 %; Mean Corpuscular HGB Conc 34.6 g/dL (31.6-35.5); Mean Corpuscular Hemoglobin 30.5 pg (28.0-33.3); Mean Corpuscular Volume 88.1 fL (83.0-100.0); Mean Platelet Volume 9.3 fL (9.4-12.4); Monocytes # 0.6 K/mcL (0.0-1.3); Monocytes % 4.6 %; Neutrophils # 9.3 K/mcL (1.6-8.9); Platelet Count 388 K/mcL (140-400); Red Blood Count 3.02 M/mcL (4.19-5.50); Red Cell Distribution Width 11.9 % (11.5-14.5); Segmented Neutrophils % 76.9 %; White Blood Count 12.1 K/mcL (4.3-11.1)
[2021-02-05 01:50] LABS: Calcium 8.4 mg/dL (8.6-10.3); Magnesium 1.7 mg/dL (1.6-2.6); Potassium 5.1 mEq/L (3.5-5.1)
[2021-02-05] MEDS: Acetaminophen 325 MG TABLET PO PRN (01:50)
[2021-02-05] MEDS: *HR* Heparin 5,000 UNIT/ML VIAL SQ SCH ×2 (01:58→16:52)
[2021-02-05] MEDS: DilTIAZem CD (24hr) 240 MG CAP.ER.24H PO SCH (08:51)
[2021-02-05] MEDS: Lactobacillus 1 EACH CAP.SPRINK PO SCH ×2 (08:51→20:24)
[2021-02-05] MEDS: Aspirin Enteric Coated 81 MG Tablet PO SCH (08:52)
[2021-02-05] MEDS: Finasteride 5 MG TABLET PO SCH (08:52)
[2021-02-05] MEDS: amLODIPine 5 MG TABLET PO SCH (08:52)
[2021-02-05] MEDS: Isosorbide MONOnitrate (24 HR) 60 MG TAB.ER.24H PO SCH (08:52)
[2021-02-05] MEDS: Insulin DETEMIR 100 UNIT/ML X5UNITS SUBQ SCH (08:58)
[2021-02-05] MEDS: Insulin LISPRO 300 UNITS/3 ML VIAL SUBQ SCH ×4 (08:59→20:24)
[2021-02-05] MEDS ORDERED: Acetaminophen IV 1,000 MG/100 ML BAG IVPB ONE (17:16)
[2021-02-05] MEDS: ARIPiprazole 5 MG TABLET PO SCH (20:23)
[2021-02-05] MEDS: Doxycycline 100 MG CAPSULE PO SCH (20:24)
[2021-02-06] MEDS: *HR* Heparin 5,000 UNIT/ML VIAL SQ SCH ×2 (04:36→17:01)
[2021-02-06 06:37] LABS: Calcium 7.9 mg/dL (8.6-10.3); Magnesium 1.7 mg/dL (1.6-2.6); Potassium 4.8 mEq/L (3.5-5.1)
[2021-02-06 06:40] LABS: Basophils # 0.1 K/mcL (0.0-0.2); Basophils % 0.5 %; Eosinophils # 0.6 K/mcL (0.0-0.6); Eosinophils % 4.8 %; Hematocrit 24.9 % (37.5-50.1); Hemoglobin 8.5 g/dL (12.9-16.9); Immature Granulocytes % 1.5 % (0-4); Lymphocytes # 1.5 K/mcL (0.6-4.6); Lymphocytes % 12.7 %; Mean Corpuscular HGB Conc 34.1 g/dL (31.6-35.5); Mean Corpuscular Hemoglobin 30.4 pg (28.0-33.3); Mean Corpuscular Volume 88.9 fL (83.0-100.0); Mean Platelet Volume 9.3 fL (9.4-12.4); Monocytes # 0.7 K/mcL (0.0-1.3); Monocytes % 5.5 %; Platelet Count 320 K/mcL (140-400); Red Cell Distribution Width 11.8 % (11.5-14.5); White Blood Count 12.1 K/mcL (4.3-11.1)
[2021-02-06 07:02] LABS: Thyroid Stimulating Hormone 4.871 mcIU/mL (0.340-5.600)
[2021-02-06] MEDS: Aspirin Enteric Coated 81 MG Tablet PO SCH (07:20)
[2021-02-06] MEDS: DilTIAZem CD (24hr) 240 MG CAP.ER.24H PO SCH (07:21)
[2021-02-06] MEDS: Doxycycline 100 MG CAPSULE PO SCH ×2 (07:21→19:31)
[2021-02-06] MEDS: Isosorbide MONOnitrate (24 HR) 60 MG TAB.ER.24H PO SCH (07:21)
[2021-02-06] MEDS: Lactobacillus 1 EACH CAP.SPRINK PO SCH ×2 (07:21→19:31)
[2021-02-06] MEDS: Finasteride 5 MG TABLET PO SCH (07:21)
[2021-02-06] MEDS: amLODIPine 5 MG TABLET PO SCH (07:21)
[2021-02-06] MEDS: Insulin LISPRO 300 UNITS/3 ML VIAL SUBQ SCH ×4 (07:21→19:49)
[2021-02-06] MEDS: Insulin DETEMIR 100 UNIT/ML X5UNITS SUBQ SCH (07:22)
[2021-02-06] MEDS: Acetaminophen 325 MG TABLET PO PRN (09:05)
[2021-02-06 09:25] LABS: Prothrombin Time 11.9 Seconds (9.4-12.1)
[2021-02-06 13:31] LABS: Uric Acid 6.1 mg/dL (2.3-7.6)
[2021-02-06] MEDS: Albumin 25% 25gram/100mL 25 GM/100 ML IV.SOLN IVPB SCH ×3 (15:11→18:31)
[2021-02-06 15:13] LABS: Bacteria,Urine Few per hpf (None-Few); Bilirubin,Urine Negative (Negative); Blood,Urine Moderate (Negative); Clarity,Urine Clear (Clear); Color,Urine Light-Yellow (Yellow); Glucose,Urine (UA) >=1000 mg/dL (Normal); Ketones,Urine Negative (Negative); Leukocyte Esterase,Urine Negative (Negative); Mucus,Urine Few per lpf (None-Few); Nitrite,Urine Negative (Negative); PH,Urine 6.5 pH Units (5.0-8.0); Protein,Urine >=600 mg/dL (Neg-Trace); Specific Gravity,Urine 1.017 (1.010-1.025); Squamous Epithelial Cell,Urine Few per hpf (None-Few); Urobilinogen,Urine Normal (Normal); WBC,Urine 30-50 per hpf (0-3)
[2021-02-06 15:22] LABS: Sodium, Urine 14.6 mEq/L
[2021-02-06] MEDS: Nicotine 14 MG PATCH.TD24 TD SCH (17:00)
[2021-02-06] MEDS: ARIPiprazole 5 MG TABLET PO SCH (19:31)
[2021-02-06] MEDS: Melatonin 3 MG TABLET PO PRN (22:29)
[2021-02-07] MEDS: Albumin 25% 25gram/100mL 25 GM/100 ML IV.SOLN IVPB SCH ×3 (01:35→18:37)
[2021-02-07] MEDS: *HR* Heparin 5,000 UNIT/ML VIAL SQ SCH ×2 (05:43→18:32)
[2021-02-07 06:05] LABS: Basophils # 0.1 K/mcL (0.0-0.2); Basophils % 0.8 %; Eosinophils # 0.5 K/mcL (0.0-0.6); Eosinophils % 5.2 %; Hematocrit 22.7 % (37.5-50.1); Hemoglobin 7.8 g/dL (12.9-16.9); Immature Granulocytes % 1.5 % (0-4); Lymphocytes # 1.1 K/mcL (0.6-4.6); Lymphocytes % 11.1 %; Mean Corpuscular HGB Conc 34.4 g/dL (31.6-35.5); Mean Corpuscular Hemoglobin 30.5 pg (28.0-33.3); Mean Corpuscular Volume 88.7 fL (83.0-100.0); Mean Platelet Volume 9.7 fL (9.4-12.4); Monocytes # 0.5 K/mcL (0.0-1.3); Monocytes % 4.8 %; Neutrophils # 7.6 K/mcL (1.6-8.9); Platelet Count 265 K/mcL (140-400); Red Blood Count 2.56 M/mcL (4.19-5.50); Segmented Neutrophils % 76.6 %
[2021-02-07 06:31] LABS: Calcium 8.3 mg/dL (8.6-10.3); Magnesium 1.8 mg/dL (1.6-2.6); Potassium 4.9 mEq/L (3.5-5.1)
[2021-02-07] MEDS: Isosorbide MONOnitrate (24 HR) 60 MG TAB.ER.24H PO SCH (10:31)
[2021-02-07] MEDS: Aspirin Enteric Coated 81 MG Tablet PO SCH (10:31)
[2021-02-07] MEDS: amLODIPine 5 MG TABLET PO SCH (10:32)
[2021-02-07] MEDS: DilTIAZem CD (24hr) 240 MG CAP.ER.24H PO SCH (10:32)
[2021-02-07] MEDS: Doxycycline 100 MG CAPSULE PO SCH ×2 (10:32→21:01)
[2021-02-07] MEDS: Finasteride 5 MG TABLET PO SCH (10:32)
[2021-02-07] MEDS: Insulin LISPRO 300 UNITS/3 ML VIAL SUBQ SCH ×4 (10:32→21:01)
[2021-02-07] MEDS: Lactobacillus 1 EACH CAP.SPRINK PO SCH ×2 (10:32→21:01)
[2021-02-07] MEDS: Insulin DETEMIR 100 UNIT/ML X5UNITS SUBQ SCH (10:33)
[2021-02-07] MEDS: Nicotine 14 MG PATCH.TD24 TD SCH (10:33)
[2021-02-07] MEDS: ARIPiprazole 5 MG TABLET PO SCH (21:01)
[2021-02-07] MEDS: Acetaminophen 325 MG TABLET PO PRN (21:05)
[2021-02-07] MEDS: Melatonin 3 MG TABLET PO PRN (21:05)
[2021-02-08] MEDS: *HR* Heparin 5,000 UNIT/ML VIAL SQ SCH ×2 (05:34→20:35)
[2021-02-08 05:35] LABS: Basophils # 0.1 K/mcL (0.0-0.2); Basophils % 0.6 %; Eosinophils # 0.6 K/mcL (0.0-0.6); Eosinophils % 5.8 %; Hematocrit 23.3 % (37.5-50.1); Hemoglobin 7.7 g/dL (12.9-16.9); Immature Granulocytes % 0.9 % (0-4); Lymphocytes # 1.2 K/mcL (0.6-4.6); Lymphocytes % 10.7 %; Mean Corpuscular Hemoglobin 29.6 pg (28.0-33.3); Mean Corpuscular Volume 89.6 fL (83.0-100.0); Mean Platelet Volume 9.9 fL (9.4-12.4); Monocytes # 0.5 K/mcL (0.0-1.3); Monocytes % 4.6 %; Neutrophils # 8.5 K/mcL (1.6-8.9); Platelet Count 267 K/mcL (140-400); Red Cell Distribution Width 12.2 % (11.5-14.5); Segmented Neutrophils % 77.4 %; White Blood Count 10.9 K/mcL (4.3-11.1)
[2021-02-08 05:49] LABS: Calcium 8.5 mg/dL (8.6-10.3); Magnesium 1.8 mg/dL (1.6-2.6); Potassium 5.4 mEq/L (3.5-5.1)
[2021-02-08 08:15] LABS: Albumin 3.5 g/dL (3.5-5.7); Albumin/Globulin Ratio 1.5 (1.1-2.2); Bilirubin,Indirect 0.2 mg/dL (0.0-1.0); Bilirubin,Total 0.2 mg/dL (0.3-1.0); Globulin 2.4 g/dL (2.4-3.5); Total Protein 5.9 g/dL (6.4-8.9)
[2021-02-08] MEDS: Insulin LISPRO 300 UNITS/3 ML VIAL SUBQ SCH ×4 (09:36→20:35)
[2021-02-08] MEDS: Lactobacillus 1 EACH CAP.SPRINK PO SCH ×2 (09:37→20:34)
[2021-02-08] MEDS: Doxycycline 100 MG CAPSULE PO SCH ×2 (09:37→20:34)
[2021-02-08] MEDS: Aspirin Enteric Coated 81 MG Tablet PO SCH (09:37)
[2021-02-08] MEDS: DilTIAZem CD (24hr) 240 MG CAP.ER.24H PO SCH (09:37)
[2021-02-08] MEDS: Finasteride 5 MG TABLET PO SCH (09:38)
[2021-02-08] MEDS: Isosorbide MONOnitrate (24 HR) 60 MG TAB.ER.24H PO SCH (09:38)
[2021-02-08] MEDS: Nicotine 14 MG PATCH.TD24 TD SCH (09:38)
[2021-02-08] MEDS: amLODIPine 5 MG TABLET PO SCH (09:38)
[2021-02-08] MEDS: Insulin DETEMIR 100 UNIT/ML X5UNITS SUBQ SCH (09:43)
[2021-02-08] MEDS: ARIPiprazole 5 MG TABLET PO SCH (20:34)
[2021-02-09 03:33] LABS: Hematocrit 22.9 % (37.5-50.1); Hemoglobin 7.9 g/dL (12.9-16.9); Mean Corpuscular HGB Conc 34.5 g/dL (31.6-35.5); Mean Corpuscular Hemoglobin 31.1 pg (28.0-33.3); Mean Corpuscular Volume 90.2 fL (83.0-100.0); Mean Platelet Volume 9.9 fL (9.4-12.4); Platelet Count 238 K/mcL (140-400); Red Blood Count 2.54 M/mcL (4.19-5.50); Red Cell Distribution Width 12.4 % (11.5-14.5); White Blood Count 11.3 K/mcL (4.3-11.1)
[2021-02-09 03:54] LABS: Calcium 8.6 mg/dL (8.6-10.3); Potassium 5.3 mEq/L (3.5-5.1)
[2021-02-09] MEDS: *HR* Heparin 5,000 UNIT/ML VIAL SQ SCH ×2 (05:51→16:52)
[2021-02-09] MEDS: Lactobacillus 1 EACH CAP.SPRINK PO SCH ×2 (07:58→20:49)
[2021-02-09] MEDS: Isosorbide MONOnitrate (24 HR) 60 MG TAB.ER.24H PO SCH (07:59)
[2021-02-09] MEDS: Finasteride 5 MG TABLET PO SCH (07:59)
[2021-02-09] MEDS: amLODIPine 5 MG TABLET PO SCH (08:00)
[2021-02-09] MEDS: Aspirin Enteric Coated 81 MG Tablet PO SCH (08:00)
[2021-02-09] MEDS: Nicotine 14 MG PATCH.TD24 TD SCH (08:01)
[2021-02-09] MEDS: DilTIAZem CD (24hr) 240 MG CAP.ER.24H PO SCH (08:01)
[2021-02-09] MEDS: Insulin LISPRO 300 UNITS/3 ML VIAL SUBQ SCH ×4 (08:02→20:49)
[2021-02-09] MEDS: Insulin DETEMIR 100 UNIT/ML X5UNITS SUBQ SCH (09:08)
[2021-02-09] MEDS: Albumin 25% 25gram/100mL 25 GM/100 ML IV.SOLN IVPB SCH (15:24)
[2021-02-09] MEDS: *HR* HYDROcodone/Acet 5/325 mg TABLET PO PRN ×2 (15:30→22:58)
[2021-02-09] MEDS: Sodium Bicarbonate 75 MEQ in 0.45 % Sodium Chloride 1,000 ML IVC SCH (15:30)
[2021-02-09] MEDS: ARIPiprazole 5 MG TABLET PO SCH (20:49)
[2021-02-10 03:34] LABS: Hematocrit 22.6 % (37.5-50.1); Hemoglobin 7.7 g/dL (12.9-16.9); Mean Corpuscular HGB Conc 34.1 g/dL (31.6-35.5); Mean Corpuscular Hemoglobin 30.6 pg (28.0-33.3); Mean Corpuscular Volume 89.7 fL (83.0-100.0); Mean Platelet Volume 10.5 fL (9.4-12.4); Platelet Count 239 K/mcL (140-400); Red Blood Count 2.52 M/mcL (4.19-5.50); Red Cell Distribution Width 12.3 % (11.5-14.5); White Blood Count 10.4 K/mcL (4.3-11.1)
[2021-02-10 03:43] LABS: Calcium 8.6 mg/dL (8.6-10.3); Potassium 5.5 mEq/L (3.5-5.1)
[2021-02-10] MEDS: Albumin 25% 25gram/100mL 25 GM/100 ML IV.SOLN IVPB SCH ×4 (04:24→21:44)
[2021-02-10] MEDS: *HR* Heparin 5,000 UNIT/ML VIAL SQ SCH ×2 (05:20→16:55)
[2021-02-10] MEDS: *HR* HYDROcodone/Acet 5/325 mg TABLET PO PRN (05:20)
[2021-02-10] MEDS ORDERED: Iron Sucrose Complex 400 MG in 0.9 % Sodium Chloride 250 ML IVPB ONE (07:48)
[2021-02-10] MEDS: Insulin LISPRO 300 UNITS/3 ML VIAL SUBQ SCH ×4 (08:26→23:45)
[2021-02-10] MEDS: Aspirin Enteric Coated 81 MG Tablet PO SCH (09:46)
[2021-02-10] MEDS: Finasteride 5 MG TABLET PO SCH (09:46)
[2021-02-10] MEDS: amLODIPine 5 MG TABLET PO SCH (09:46)
[2021-02-10] MEDS: Lactobacillus 1 EACH CAP.SPRINK PO SCH ×2 (09:46→21:53)
[2021-02-10] MEDS: Isosorbide MONOnitrate (24 HR) 60 MG TAB.ER.24H PO SCH (09:46)
[2021-02-10] MEDS: DilTIAZem CD (24hr) 240 MG CAP.ER.24H PO SCH (09:46)
[2021-02-10] MEDS: Insulin DETEMIR 100 UNIT/ML X5UNITS SUBQ SCH (09:53)
[2021-02-10] MEDS: Nicotine 14 MG PATCH.TD24 TD SCH (09:56)
[2021-02-10] MEDS ORDERED: SODIUM ZIRCONIUM CYCLOSILICATE 5 GM POWD.PACK PO ONE (12:24)
[2021-02-10] MEDS: Sodium Bicarbonate 75 MEQ in 0.45 % Sodium Chloride 1,000 ML IVC SCH (15:02)
[2021-02-10] MEDS: ARIPiprazole 5 MG TABLET PO SCH (21:52)
[2021-02-11] MEDS: Albumin 25% 25gram/100mL 25 GM/100 ML IV.SOLN IVPB SCH (05:35)
[2021-02-11] MEDS: *HR* Heparin 5,000 UNIT/ML VIAL SQ SCH ×2 (05:36→17:16)
[2021-02-11] MEDS: Insulin LISPRO 300 UNITS/3 ML VIAL SUBQ SCH ×4 (08:34→21:54)
[2021-02-11] MEDS: Aspirin Enteric Coated 81 MG Tablet PO SCH (08:35)
[2021-02-11] MEDS: Nicotine 14 MG PATCH.TD24 TD SCH (08:35)
[2021-02-11] MEDS: Isosorbide MONOnitrate (24 HR) 60 MG TAB.ER.24H PO SCH (08:36)
[2021-02-11] MEDS: Lactobacillus 1 EACH CAP.SPRINK PO SCH ×2 (08:36→19:54)
[2021-02-11] MEDS: amLODIPine 5 MG TABLET PO SCH (08:36)
[2021-02-11] MEDS: Finasteride 5 MG TABLET PO SCH (08:36)
[2021-02-11] MEDS: Nitroglycerin 0.4 MG TAB.SUBL SL PRN ×2 (08:36→08:46)
[2021-02-11] MEDS ORDERED: Ipratropium/Albuterol Neb 3 ML IH PRN (08:51)
[2021-02-11] MEDS: *HR* HYDROcodone/Acet 5/325 mg TABLET PO PRN (08:54)
[2021-02-11 08:56] LABS: Calcium 8.9 mg/dL (8.6-10.3); Potassium 4.9 mEq/L (3.5-5.1)
[2021-02-11] MEDS: ALPRAZolam 0.5 MG TABLET PO PRN (08:58)
[2021-02-11 09:01] LABS: Troponin I 0.04 ng/mL (< 0.04)
[2021-02-11] MEDS ORDERED: Pantoprazole 40 MG VIAL IVP ONE (09:03)
[2021-02-11] MEDS: DilTIAZem CD (24hr) 240 MG CAP.ER.24H PO SCH (09:08)
[2021-02-11] MEDS: Insulin DETEMIR 100 UNIT/ML X5UNITS SUBQ SCH (09:12)
[2021-02-11] MEDS ORDERED: Bumetanide 1 MG/4 ML VIAL IVP ONE (11:00)
[2021-02-11] MEDS: *HR* OxyCODONE/APAP 7.5/325 TABLET PO PRN ×2 (12:45→17:16)
[2021-02-11] MEDS: ARIPiprazole 5 MG TABLET PO SCH (19:54)
[2021-02-11] MEDS: Haloperidol Lactate 5 MG/ML VIAL IM PRN (23:01)
[2021-02-12 04:52] LABS: Hemoglobin 7.3 g/dL (12.9-16.9); Mean Corpuscular HGB Conc 33.2 g/dL (31.6-35.5); Mean Corpuscular Hemoglobin 30.7 pg (28.0-33.3); Mean Corpuscular Volume 92.4 fL (83.0-100.0); Mean Platelet Volume 10.2 fL (9.4-12.4); Platelet Count 230 K/mcL (140-400); Red Blood Count 2.38 M/mcL (4.19-5.50); Red Cell Distribution Width 12.7 % (11.5-14.5); White Blood Count 9.4 K/mcL (4.3-11.1)
[2021-02-12 04:55] LABS: INR 1.1; Prothrombin Time 12.8 Seconds (9.4-12.1)
[2021-02-12 05:06] LABS: Calcium 8.5 mg/dL (8.6-10.3); Potassium 5.5 mEq/L (3.5-5.1)
[2021-02-12] MEDS: *HR* Heparin 5,000 UNIT/ML VIAL SQ SCH ×2 (05:24→19:05)
[2021-02-12 05:27] LABS: Hepatitis B Surface Antigen Nonreactive (Nonreactive)
[2021-02-12 05:55] LABS: Hepatitis C Virus Antibody Nonreactive (Nonreactive)
[2021-02-12 05:56] LABS: Hepatitis B Core IgM Nonreactive (Nonreactive)
[2021-02-12 05:57] LABS: Hepatitis A Antibody IgM Nonreactive (Nonreactive)
[2021-02-12] MEDS ORDERED: 0.9 % Sodium Chloride 250 ML IVC PRN (08:27)
[2021-02-12] MEDS ORDERED: *HR* Heparin 10,000 UNIT/10 ML VIAL IV PRN (08:27)
[2021-02-12] MEDS ORDERED: 0.9 % Sodium Chloride 1,000 ML PRIME SCH (08:30)
[2021-02-12] MEDS: DilTIAZem CD (24hr) 240 MG CAP.ER.24H PO SCH (10:12)
[2021-02-12] MEDS: Lactobacillus 1 EACH CAP.SPRINK PO SCH ×2 (10:12→20:29)
[2021-02-12] MEDS: Isosorbide MONOnitrate (24 HR) 60 MG TAB.ER.24H PO SCH (10:12)
[2021-02-12] MEDS: Finasteride 5 MG TABLET PO SCH (10:12)
[2021-02-12] MEDS: Nicotine 14 MG PATCH.TD24 TD SCH (10:13)
[2021-02-12] MEDS: amLODIPine 5 MG TABLET PO SCH (10:13)
[2021-02-12] MEDS: Aspirin Enteric Coated 81 MG Tablet PO SCH (10:13)
[2021-02-12] MEDS: *HR* OxyCODONE/APAP 7.5/325 TABLET PO PRN ×3 (10:19→23:59)
[2021-02-12] MEDS: Insulin LISPRO 300 UNITS/3 ML VIAL SUBQ SCH ×4 (10:27→20:30)
[2021-02-12] MEDS: Insulin DETEMIR 100 UNIT/ML X5UNITS SUBQ SCH (10:28)
[2021-02-12] MEDS ORDERED: Lidocaine/EPI 1:100k 1% 50 ML VIAL ONE (11:01)
[2021-02-12] MEDS ORDERED: Heparin 1,000 UNITS/500 mL 500 ML ONE (11:01)
[2021-02-12] MEDS ORDERED: *HR* Heparin 5,000 UNIT/ML VIAL ONE ×2 (11:22→11:26)
[2021-02-12] MEDS ORDERED: Ferumoxytol 510 MG in 0.9 % Sodium Chloride 100 ML IVPB ONE (12:02)
[2021-02-12] MEDS: Ondansetron 4 MG/2 ML VIAL IVP PRN (20:28)
[2021-02-12] MEDS: ARIPiprazole 5 MG TABLET PO SCH (20:29)
[2021-02-13 03:21] LABS: Hematocrit 23.2 % (37.5-50.1); Hemoglobin 7.5 g/dL (12.9-16.9); Mean Corpuscular HGB Conc 32.3 g/dL (31.6-35.5); Mean Corpuscular Hemoglobin 29.8 pg (28.0-33.3); Mean Corpuscular Volume 92.1 fL (83.0-100.0); Mean Platelet Volume 9.5 fL (9.4-12.4); Platelet Count 220 K/mcL (140-400); Red Blood Count 2.52 M/mcL (4.19-5.50); Red Cell Distribution Width 12.7 % (11.5-14.5); White Blood Count 10.1 K/mcL (4.3-11.1)
[2021-02-13 03:41] LABS: Calcium 8.2 mg/dL (8.6-10.3); Potassium 4.8 mEq/L (3.5-5.1)
[2021-02-13] MEDS: *HR* Heparin 5,000 UNIT/ML VIAL SQ SCH ×2 (05:06→17:05)
[2021-02-13] MEDS ORDERED: 0.9 % Sodium Chloride 250 ML IVC PRN (07:16)
[2021-02-13] MEDS ORDERED: *HR* Heparin 10,000 UNIT/10 ML VIAL IV PRN (07:16)
[2021-02-13] MEDS ORDERED: 0.9 % Sodium Chloride 1,000 ML PRIME SCH (07:30)
[2021-02-13] MEDS: Lactobacillus 1 EACH CAP.SPRINK PO SCH (07:45)
[2021-02-13] MEDS: Insulin DETEMIR 100 UNIT/ML X5UNITS SUBQ SCH (07:45)
[2021-02-13] MEDS: Aspirin Enteric Coated 81 MG Tablet PO SCH (07:45)
[2021-02-13] MEDS: Nicotine 14 MG PATCH.TD24 TD SCH (07:46)
[2021-02-13] MEDS: Finasteride 5 MG TABLET PO SCH (07:46)
[2021-02-13] MEDS: Insulin LISPRO 300 UNITS/3 ML VIAL SUBQ SCH ×4 (07:53→21:02)
[2021-02-13] MEDS: DilTIAZem CD (24hr) 240 MG CAP.ER.24H PO SCH ×2 (07:54→12:46)
[2021-02-13] MEDS: Isosorbide MONOnitrate (24 HR) 60 MG TAB.ER.24H PO SCH ×2 (07:54→12:46)
[2021-02-13] MEDS: amLODIPine 5 MG TABLET PO SCH ×2 (07:55→12:45)
[2021-02-13] MEDS: Acetaminophen 325 MG TABLET PO PRN (17:04)
[2021-02-13] MEDS: ARIPiprazole 5 MG TABLET PO SCH (21:03)
[2021-02-13] MEDS: *HR* OxyCODONE/APAP 7.5/325 TABLET PO PRN (22:01)
[2021-02-14 04:43] LABS: Hematocrit 22.3 % (37.5-50.1); Hemoglobin 7.5 g/dL (12.9-16.9); Mean Corpuscular HGB Conc 33.6 g/dL (31.6-35.5); Mean Corpuscular Hemoglobin 30.9 pg (28.0-33.3); Mean Corpuscular Volume 91.8 fL (83.0-100.0); Mean Platelet Volume 9.7 fL (9.4-12.4); Platelet Count 202 K/mcL (140-400); Red Blood Count 2.43 M/mcL (4.19-5.50); Red Cell Distribution Width 12.6 % (11.5-14.5); White Blood Count 9.9 K/mcL (4.3-11.1)
[2021-02-14 05:01] LABS: Potassium 4.5 mEq/L (3.5-5.1)
[2021-02-14] MEDS: *HR* Heparin 5,000 UNIT/ML VIAL SQ SCH ×2 (05:50→16:41)
[2021-02-14] MEDS: Insulin LISPRO 300 UNITS/3 ML VIAL SUBQ SCH ×4 (07:56→20:46)
[2021-02-14] MEDS ORDERED: *HR* Heparin 10,000 UNIT/10 ML VIAL IV PRN (08:44)
[2021-02-14] MEDS ORDERED: 0.9 % Sodium Chloride 250 ML IVC PRN (08:44)
[2021-02-14] MEDS ORDERED: 0.9 % Sodium Chloride 1,000 ML PRIME SCH (08:45)
[2021-02-14] MEDS: Acetaminophen 325 MG TABLET PO PRN (10:08)
[2021-02-14] MEDS: Ondansetron 4 MG/2 ML VIAL IVP PRN (10:09)
[2021-02-14] MEDS: amLODIPine 5 MG TABLET PO SCH (14:50)
[2021-02-14] MEDS: DilTIAZem CD (24hr) 240 MG CAP.ER.24H PO SCH (14:50)
[2021-02-14] MEDS: Finasteride 5 MG TABLET PO SCH (14:51)
[2021-02-14] MEDS: Aspirin Enteric Coated 81 MG Tablet PO SCH (14:51)
[2021-02-14] MEDS: Isosorbide MONOnitrate (24 HR) 60 MG TAB.ER.24H PO SCH (14:51)
[2021-02-14] MEDS: *HR* OxyCODONE/APAP 7.5/325 TABLET PO PRN (14:51)
[2021-02-14] MEDS: Nicotine 14 MG PATCH.TD24 TD SCH (14:54)
[2021-02-14] MEDS: Insulin DETEMIR 100 UNIT/ML X5UNITS SUBQ SCH (15:10)
[2021-02-14 16:58] LABS: VBG HCO3 29 mEq/L (21-27); VBG PCO2 45 mmHg (41-51); VBG PH 7.42 pH Units (7.32-7.42); VBG PO2 177 mmHg (25-50)
[2021-02-14] MEDS: ARIPiprazole 5 MG TABLET PO SCH (19:28)
[2021-02-14] MEDS: traZODone 50 MG TABLET PO SCH (19:28)
[2021-02-15] MEDS: Haloperidol Lactate 5 MG/ML VIAL IM PRN (00:05)
[2021-02-15 04:05] LABS: Hematocrit 22.4 % (37.5-50.1); Hemoglobin 7.4 g/dL (12.9-16.9); Mean Corpuscular Volume 93.7 fL (83.0-100.0); Mean Platelet Volume 9.8 fL (9.4-12.4); Platelet Count 204 K/mcL (140-400); Red Blood Count 2.39 M/mcL (4.19-5.50); Red Cell Distribution Width 12.9 % (11.5-14.5); White Blood Count 8.8 K/mcL (4.3-11.1)
[2021-02-15 04:27] LABS: Calcium 8.1 mg/dL (8.6-10.3); Potassium 4.6 mEq/L (3.5-5.1)
[2021-02-15] MEDS: *HR* Heparin 5,000 UNIT/ML VIAL SQ SCH ×2 (04:54→16:56)
[2021-02-15] MEDS: Finasteride 5 MG TABLET PO SCH (07:37)
[2021-02-15] MEDS: *HR* OxyCODONE/APAP 7.5/325 TABLET PO PRN ×2 (07:37→13:22)
[2021-02-15] MEDS: DilTIAZem CD (24hr) 240 MG CAP.ER.24H PO SCH (07:37)
[2021-02-15] MEDS: amLODIPine 5 MG TABLET PO SCH (07:37)
[2021-02-15] MEDS: Nicotine 14 MG PATCH.TD24 TD SCH (07:37)
[2021-02-15] MEDS: Isosorbide MONOnitrate (24 HR) 60 MG TAB.ER.24H PO SCH (07:37)
[2021-02-15] MEDS: Aspirin Enteric Coated 81 MG Tablet PO SCH (07:37)
[2021-02-15] MEDS: Insulin LISPRO 300 UNITS/3 ML VIAL SUBQ SCH ×4 (07:38→20:09)
[2021-02-15] MEDS: Insulin DETEMIR 100 UNIT/ML X5UNITS SUBQ SCH (07:38)
[2021-02-15] MEDS: ALPRAZolam 0.5 MG TABLET PO PRN (10:53)
[2021-02-15] MEDS: Acetaminophen 325 MG TABLET PO PRN (10:53)
[2021-02-15] MEDS: traZODone 50 MG TABLET PO SCH (19:35)
[2021-02-15] MEDS: ARIPiprazole 5 MG TABLET PO SCH (19:35)
[2021-02-16] MEDS: *HR* OxyCODONE/APAP 7.5/325 TABLET PO PRN ×3 (03:41→17:27)
[2021-02-16 03:53] LABS: Hematocrit 23.2 % (37.5-50.1); Hemoglobin 7.5 g/dL (12.9-16.9); Mean Corpuscular HGB Conc 32.3 g/dL (31.6-35.5); Mean Corpuscular Hemoglobin 30.7 pg (28.0-33.3); Mean Corpuscular Volume 95.1 fL (83.0-100.0); Mean Platelet Volume 9.4 fL (9.4-12.4); Platelet Count 199 K/mcL (140-400); Red Blood Count 2.44 M/mcL (4.19-5.50); Red Cell Distribution Width 12.7 % (11.5-14.5); White Blood Count 8.5 K/mcL (4.3-11.1)
[2021-02-16 04:12] LABS: Calcium 8.3 mg/dL (8.6-10.3); Potassium 5.1 mEq/L (3.5-5.1)
[2021-02-16] MEDS: *HR* Heparin 5,000 UNIT/ML VIAL SQ SCH ×2 (05:21→17:20)
[2021-02-16] MEDS: Insulin LISPRO 300 UNITS/3 ML VIAL SUBQ SCH ×4 (07:34→20:56)
[2021-02-16] MEDS: Insulin DETEMIR 100 UNIT/ML X5UNITS SUBQ SCH (07:35)
[2021-02-16] MEDS: DilTIAZem CD (24hr) 240 MG CAP.ER.24H PO SCH (07:42)
[2021-02-16] MEDS: amLODIPine 5 MG TABLET PO SCH (07:42)
[2021-02-16] MEDS: Finasteride 5 MG TABLET PO SCH (07:42)
[2021-02-16] MEDS: Aspirin Enteric Coated 81 MG Tablet PO SCH (07:42)
[2021-02-16] MEDS: Isosorbide MONOnitrate (24 HR) 60 MG TAB.ER.24H PO SCH (07:42)
[2021-02-16] MEDS: Nicotine 14 MG PATCH.TD24 TD SCH (07:43)
[2021-02-16] MEDS ORDERED: *HR* Heparin 10,000 UNIT/10 ML VIAL IV PRN (07:43)
[2021-02-16] MEDS ORDERED: 0.9 % Sodium Chloride 250 ML IVC PRN (07:43)
[2021-02-16] MEDS: Acetaminophen 325 MG TABLET PO PRN (07:45)
[2021-02-16 10:31] LABS: Bilirubin,Urine Negative (Negative); Blood,Urine Moderate (Negative); Clarity,Urine Clear (Clear); Color,Urine Light-Yellow (Yellow); Glucose,Urine (UA) 500 mg/dL (Normal); Ketones,Urine Negative (Negative); Leukocyte Esterase,Urine Negative (Negative); Mucus,Urine Few per lpf (None-Few); Nitrite,Urine Negative (Negative); Protein,Urine >=600 mg/dL (Neg-Trace); Specific Gravity,Urine 1.023 (1.010-1.025); Squamous Epithelial Cell,Urine Few per hpf (None-Few); Urobilinogen,Urine Normal (Normal)
[2021-02-16] MEDS ORDERED: *HR* FentaNYL (PF) 100 MCG/2 ML VIAL ONE (10:37)
[2021-02-16] MEDS ORDERED: *HR* Heparin 5,000 UNIT/ML VIAL ONE (11:08)
[2021-02-16] MEDS ORDERED: CeFAZolin 2,000MG/50ML DUPLEX 2,000 MG/50 ML BAG IVPB ONE (12:00)
[2021-02-16] MEDS: ARIPiprazole 5 MG TABLET PO SCH (22:11)
[2021-02-16] MEDS: traZODone 50 MG TABLET PO SCH (22:11)
[2021-02-17] MEDS: *HR* Heparin 5,000 UNIT/ML VIAL SQ SCH ×2 (05:21→17:31)
[2021-02-17] MEDS: Insulin LISPRO 300 UNITS/3 ML VIAL SUBQ SCH ×4 (07:46→19:54)
[2021-02-17 09:01] LABS: Hematocrit 25.2 % (37.5-50.1); Hemoglobin 8.2 g/dL (12.9-16.9); Mean Corpuscular HGB Conc 32.5 g/dL (31.6-35.5); Mean Corpuscular Hemoglobin 30.7 pg (28.0-33.3); Mean Corpuscular Volume 94.4 fL (83.0-100.0); Mean Platelet Volume 9.9 fL (9.4-12.4); Platelet Count 234 K/mcL (140-400); Red Blood Count 2.67 M/mcL (4.19-5.50); Red Cell Distribution Width 13.3 % (11.5-14.5); White Blood Count 8.8 K/mcL (4.3-11.1)
[2021-02-17] MEDS: Aspirin Enteric Coated 81 MG Tablet PO SCH (09:02)
[2021-02-17] MEDS: amLODIPine 5 MG TABLET PO SCH (09:02)
[2021-02-17] MEDS: Isosorbide MONOnitrate (24 HR) 60 MG TAB.ER.24H PO SCH (09:03)
[2021-02-17] MEDS: Finasteride 5 MG TABLET PO SCH (09:03)
[2021-02-17] MEDS: DilTIAZem CD (24hr) 240 MG CAP.ER.24H PO SCH (09:06)
[2021-02-17 09:15] LABS: Calcium 8.2 mg/dL (8.6-10.3); Potassium 4.3 mEq/L (3.5-5.1)
[2021-02-17] MEDS: Nicotine 14 MG PATCH.TD24 TD SCH (09:15)
[2021-02-17] MEDS: Insulin DETEMIR 100 UNIT/ML X5UNITS SUBQ SCH (09:16)
[2021-02-17 11:49] LABS: VBG HCO3 28 mEq/L (21-27); VBG PCO2 30 mmHg (41-51); VBG PH 7.58 pH Units (7.32-7.42); VBG PO2 212 mmHg (25-50)
[2021-02-17] MEDS: *HR* OxyCODONE/APAP 7.5/325 TABLET PO PRN (20:37)
[2021-02-17] MEDS: ARIPiprazole 5 MG TABLET PO SCH (20:38)
[2021-02-17] MEDS: traZODone 50 MG TABLET PO SCH (20:40)
[2021-02-17] MEDS: Melatonin 3 MG TABLET PO PRN (20:43)
[2021-02-18] MEDS: ALPRAZolam 0.5 MG TABLET PO PRN (02:36)
[2021-02-18 05:09] LABS: Hematocrit 24.5 % (37.5-50.1); Hemoglobin 7.7 g/dL (12.9-16.9); Mean Corpuscular HGB Conc 31.4 g/dL (31.6-35.5); Mean Corpuscular Hemoglobin 29.8 pg (28.0-33.3); Mean Platelet Volume 9.7 fL (9.4-12.4); Platelet Count 236 K/mcL (140-400); Red Blood Count 2.58 M/mcL (4.19-5.50); Red Cell Distribution Width 13.5 % (11.5-14.5); White Blood Count 7.2 K/mcL (4.3-11.1)
[2021-02-18 05:10] LABS: VBG HCO3 29 mEq/L (21-27); VBG PCO2 45 mmHg (41-51); VBG PH 7.42 pH Units (7.32-7.42); VBG PO2 128 mmHg (25-50)
[2021-02-18 05:30] LABS: Calcium 8.3 mg/dL (8.6-10.3); Potassium 4.8 mEq/L (3.5-5.1)
[2021-02-18] MEDS: *HR* Heparin 5,000 UNIT/ML VIAL SQ SCH ×2 (06:17→16:50)
[2021-02-18] MEDS: Isosorbide MONOnitrate (24 HR) 60 MG TAB.ER.24H PO SCH (08:50)
[2021-02-18] MEDS: DilTIAZem CD (24hr) 240 MG CAP.ER.24H PO SCH (08:50)
[2021-02-18] MEDS: amLODIPine 5 MG TABLET PO SCH (08:50)
[2021-02-18] MEDS: Aspirin Enteric Coated 81 MG Tablet PO SCH (08:50)
[2021-02-18] MEDS: Finasteride 5 MG TABLET PO SCH (08:51)
[2021-02-18] MEDS: Insulin DETEMIR 100 UNIT/ML X5UNITS SUBQ SCH (08:54)
[2021-02-18] MEDS: Acetaminophen 325 MG TABLET PO PRN (08:54)
[2021-02-18] MEDS: Insulin LISPRO 300 UNITS/3 ML VIAL SUBQ SCH ×4 (08:54→21:18)
[2021-02-18] MEDS: Nicotine 14 MG PATCH.TD24 TD SCH (09:00)
[2021-02-18] MEDS: *HR* OxyCODONE/APAP 7.5/325 TABLET PO PRN (12:52)
[2021-02-18] MEDS: ALPRAZolam 0.5 MG TABLET PO SCH ×2 (16:50→23:39)
[2021-02-18] MEDS: ARIPiprazole 5 MG TABLET PO SCH (21:14)
[2021-02-18] MEDS: traZODone 50 MG TABLET PO SCH (21:17)
[2021-02-19 04:24] LABS: Calcium 8.4 mg/dL (8.6-10.3); Potassium 4.8 mEq/L (3.5-5.1)
[2021-02-19 04:25] LABS: Hematocrit 25.2 % (37.5-50.1); Hemoglobin 7.9 g/dL (12.9-16.9); Mean Corpuscular HGB Conc 31.3 g/dL (31.6-35.5); Mean Corpuscular Hemoglobin 30.3 pg (28.0-33.3); Mean Corpuscular Volume 96.6 fL (83.0-100.0); Mean Platelet Volume 9.8 fL (9.4-12.4); Platelet Count 257 K/mcL (140-400); Red Blood Count 2.61 M/mcL (4.19-5.50); White Blood Count 7.2 K/mcL (4.3-11.1)
[2021-02-19] MEDS: *HR* Heparin 5,000 UNIT/ML VIAL SQ SCH ×2 (05:49→20:11)
[2021-02-19] MEDS: Insulin LISPRO 300 UNITS/3 ML VIAL SUBQ SCH ×4 (08:33→23:03)
[2021-02-19] MEDS: Aspirin Enteric Coated 81 MG Tablet PO SCH (09:18)
[2021-02-19] MEDS: DilTIAZem CD (24hr) 240 MG CAP.ER.24H PO SCH (09:18)
[2021-02-19] MEDS: amLODIPine 5 MG TABLET PO SCH (09:18)
[2021-02-19] MEDS: Isosorbide MONOnitrate (24 HR) 60 MG TAB.ER.24H PO SCH (09:18)
[2021-02-19] MEDS: ALPRAZolam 0.5 MG TABLET PO SCH ×3 (09:18→23:44)
[2021-02-19] MEDS: Nicotine 14 MG PATCH.TD24 TD SCH (09:19)
[2021-02-19] MEDS: Insulin DETEMIR 100 UNIT/ML X5UNITS SUBQ SCH (09:19)
[2021-02-19] MEDS: Finasteride 5 MG TABLET PO SCH (09:19)
[2021-02-19] MEDS: *HR* OxyCODONE/APAP 7.5/325 TABLET PO PRN ×2 (13:20→20:10)
[2021-02-19] MEDS ORDERED: Furosemide 40 MG/4 ML VIAL IVP ONE (13:45)
[2021-02-19] MEDS: ARIPiprazole 5 MG TABLET PO SCH (20:10)
[2021-02-19] MEDS: traZODone 50 MG TABLET PO SCH (23:02)
[2021-02-20] MEDS: ALPRAZolam 0.5 MG TABLET PO SCH ×4 (01:56→20:10)
[2021-02-20 02:20] LABS: Hematocrit 25.7 % (37.5-50.1); Hemoglobin 8.1 g/dL (12.9-16.9); Mean Corpuscular HGB Conc 31.5 g/dL (31.6-35.5); Mean Corpuscular Hemoglobin 30.3 pg (28.0-33.3); Mean Corpuscular Volume 96.3 fL (83.0-100.0); Mean Platelet Volume 9.8 fL (9.4-12.4); Platelet Count 250 K/mcL (140-400); Red Blood Count 2.67 M/mcL (4.19-5.50); Red Cell Distribution Width 14.5 % (11.5-14.5); White Blood Count 7.9 K/mcL (4.3-11.1)
[2021-02-20 02:43] LABS: Calcium 8.4 mg/dL (8.6-10.3); Potassium 5.1 mEq/L (3.5-5.1)
[2021-02-20] MEDS: *HR* Heparin 5,000 UNIT/ML VIAL SQ SCH (06:14)
[2021-02-20] MEDS: Insulin LISPRO 300 UNITS/3 ML VIAL SUBQ SCH ×4 (07:21→20:08)
[2021-02-20] MEDS ORDERED: *HR* Heparin 10,000 UNIT/10 ML VIAL IV PRN (07:48)
[2021-02-20] MEDS ORDERED: 0.9 % Sodium Chloride 250 ML IVC PRN (07:48)
[2021-02-20] MEDS ORDERED: 0.9 % Sodium Chloride 1,000 ML PRIME SCH (08:00)
[2021-02-20] MEDS ORDERED: carvediloL 6.25 MG TABLET PO SCH (08:00)
[2021-02-20] MEDS ORDERED: Lidocaine/EPI 1:100k 1% 50 ML VIAL ONE (08:40)
[2021-02-20] MEDS ORDERED: Heparin 1,000 UNITS/500 mL 500 ML ONE (08:40)
[2021-02-20] MEDS ORDERED: 0.9 % Sodium Chloride 500 ML ONE (08:44)
[2021-02-20] MEDS ORDERED: *HR* FentaNYL (PF) 100 MCG/2 ML VIAL IVP ONE ×2 (08:48→08:51)
[2021-02-20] MEDS ORDERED: *HR* Midazolam HCl 2 MG/2 ML VIAL IVP ONE (08:48)
[2021-02-20] MEDS ORDERED: *HR* FentaNYL (PF) 100 MCG/2 ML VIAL ONE (08:54)
[2021-02-20] MEDS ORDERED: CeFAZolin 2,000MG/50ML DUPLEX 2,000 MG/50 ML BAG IVPB ONE (09:00)
[2021-02-20] MEDS ORDERED: *HR* Heparin 5,000 UNIT/ML VIAL ONE (09:04)
[2021-02-20] MEDS ORDERED: Isovue-370 500 ML BOTTLE IVP ONE (09:21)
[2021-02-20] MEDS: Finasteride 5 MG TABLET PO SCH (10:41)
[2021-02-20] MEDS: Isosorbide MONOnitrate (24 HR) 60 MG TAB.ER.24H PO SCH (10:41)
[2021-02-20] MEDS: Aspirin Enteric Coated 81 MG Tablet PO SCH (10:41)
[2021-02-20] MEDS: Insulin DETEMIR 100 UNIT/ML X5UNITS SUBQ SCH (10:45)
[2021-02-20] MEDS: DilTIAZem CD (24hr) 240 MG CAP.ER.24H PO SCH (10:45)
[2021-02-20] MEDS: Nicotine 14 MG PATCH.TD24 TD SCH (11:03)
[2021-02-20] MEDS ORDERED: Apixaban 5 MG TABLET PO SCH ×2 (12:15→12:30)
[2021-02-20] MEDS: Acetaminophen 325 MG TABLET PO PRN (12:33)
[2021-02-20] MEDS: Apixaban 5 MG TABLET PO SCH ×2 (13:01→20:08)
[2021-02-20] MEDS: *HR* OxyCODONE/APAP 7.5/325 TABLET PO PRN ×2 (15:48→20:12)
[2021-02-20] MEDS: ARIPiprazole 5 MG TABLET PO SCH (20:07)
[2021-02-20] MEDS: traZODone 50 MG TABLET PO SCH (20:13)
[2021-02-20] MEDS: Melatonin 3 MG TABLET PO PRN (20:15)
[2021-02-21 01:19] LABS: Hematocrit 24.5 % (37.5-50.1); Hemoglobin 8.2 g/dL (12.9-16.9); Mean Corpuscular HGB Conc 33.5 g/dL (31.6-35.5); Mean Corpuscular Hemoglobin 31.4 pg (28.0-33.3); Mean Corpuscular Volume 93.9 fL (83.0-100.0); Mean Platelet Volume 10.1 fL (9.4-12.4); Platelet Count 234 K/mcL (140-400); Red Blood Count 2.61 M/mcL (4.19-5.50); Red Cell Distribution Width 14.5 % (11.5-14.5); White Blood Count 10.8 K/mcL (4.3-11.1)
[2021-02-21 01:38] LABS: Calcium 7.9 mg/dL (8.6-10.3); Potassium 4.1 mEq/L (3.5-5.1)
[2021-02-21] MEDS ORDERED: *HR* Heparin 10,000 UNIT/10 ML VIAL IV PRN (07:50)
[2021-02-21] MEDS ORDERED: 0.9 % Sodium Chloride 250 ML IVC PRN (07:50)
[2021-02-21] MEDS ORDERED: 0.9 % Sodium Chloride 1,000 ML PRIME SCH (08:00)
[2021-02-21] MEDS: ALPRAZolam 0.5 MG TABLET PO SCH ×3 (08:32→20:16)
[2021-02-21] MEDS: Finasteride 5 MG TABLET PO SCH (08:32)
[2021-02-21] MEDS: Insulin DETEMIR 100 UNIT/ML X5UNITS SUBQ SCH (08:33)
[2021-02-21] MEDS: Apixaban 5 MG TABLET PO SCH ×2 (08:33→20:16)
[2021-02-21] MEDS: Aspirin Enteric Coated 81 MG Tablet PO SCH (08:33)
[2021-02-21] MEDS: DilTIAZem CD (24hr) 240 MG CAP.ER.24H PO SCH (08:33)
[2021-02-21] MEDS: Nicotine 14 MG PATCH.TD24 TD SCH (08:34)
[2021-02-21] MEDS: Isosorbide MONOnitrate (24 HR) 60 MG TAB.ER.24H PO SCH (08:34)
[2021-02-21] MEDS: Insulin LISPRO 300 UNITS/3 ML VIAL SUBQ SCH ×4 (08:35→20:17)
[2021-02-21] MEDS: Melatonin 3 MG TABLET PO PRN (20:16)
[2021-02-21] MEDS: traZODone 50 MG TABLET PO SCH (20:17)
[2021-02-21] MEDS: *HR* OxyCODONE/APAP 7.5/325 TABLET PO PRN (20:20)
[2021-02-21] MEDS: ARIPiprazole 5 MG TABLET PO SCH (20:20)
[2021-02-22 06:04] LABS: Hematocrit 24.7 % (37.5-50.1); Hemoglobin 8.1 g/dL (12.9-16.9); Mean Corpuscular HGB Conc 32.8 g/dL (31.6-35.5); Mean Corpuscular Hemoglobin 30.9 pg (28.0-33.3); Mean Corpuscular Volume 94.3 fL (83.0-100.0); Mean Platelet Volume 9.7 fL (9.4-12.4); Platelet Count 234 K/mcL (140-400); Red Blood Count 2.62 M/mcL (4.19-5.50); Red Cell Distribution Width 14.7 % (11.5-14.5); White Blood Count 8.5 K/mcL (4.3-11.1)
[2021-02-22 06:24] LABS: Potassium 3.8 mEq/L (3.5-5.1)
[2021-02-22] MEDS: Insulin LISPRO 300 UNITS/3 ML VIAL SUBQ SCH ×2 (07:33→12:01)
[2021-02-22] MEDS: DilTIAZem CD (24hr) 240 MG CAP.ER.24H PO SCH (09:22)
[2021-02-22] MEDS: Apixaban 5 MG TABLET PO SCH (09:22)
[2021-02-22] MEDS: ALPRAZolam 0.5 MG TABLET PO SCH (09:22)
[2021-02-22] MEDS: Finasteride 5 MG TABLET PO SCH (09:22)
[2021-02-22] MEDS: Aspirin Enteric Coated 81 MG Tablet PO SCH (09:22)
[2021-02-22] MEDS: Isosorbide MONOnitrate (24 HR) 60 MG TAB.ER.24H PO SCH (09:23)
[2021-02-22] MEDS: Nicotine 14 MG PATCH.TD24 TD SCH (09:29)
[2021-02-22] MEDS: Insulin DETEMIR 100 UNIT/ML X5UNITS SUBQ SCH (10:05)
[2021-02-22 11:47] VITALS: BP 131/77; PULSE 85; TEMP 97.8; O2SAT 96
[2021-02-27] MEDS ORDERED: Apixaban 5 MG TABLET PO SCH (09:00)
== END 2021-02-22 12:51 | disposition home health service (06) | DRG 720 ==
LOC: 3ANU → SUATTDRO 20:24 → 3BNU 02-01 01:18 → 2ANU 02-12 17:22
PROVIDERS: ADMIT Internal Medicine; ATTEND Internal Medicine
PROC: IRPERMA (2021-02-16 11:30)

== ENCOUNTER 2021-06-08 07:04 | Inpatient (IN) ==
[2021-06-08] MEDS ORDERED: Dextrose Gel 15 GM/37.5 ML TUBE PO PRN ×2 (09:47)
[2021-06-08] MEDS ORDERED: D5% in Water 1,000 ML IVC PRN (09:47)
[2021-06-08] MEDS ORDERED: Acetaminophen 325 MG TABLET PO PRN (09:47)
[2021-06-08] MEDS ORDERED: *HR* Dextrose 50 % in Water (Syg) 50 ML SYRINGE IVP PRN (09:47)
[2021-06-08] MEDS ORDERED: Naloxone 0.4 MG/ML INJ IVP PRN (09:47)
[2021-06-08] MEDS: Insulin LISPRO 300 UNITS/3 ML VIAL SUBQ SCH ×3 (11:09→21:02)
[2021-06-08] MEDS ORDERED: Acetaminophen IV 1,000 MG/100 ML BAG IVPB PRN (11:16)
[2021-06-08] MEDS ORDERED: Perflutren Lipid Microsphere 1.3 ML in 0.9 % Sodium Chloride 8.7 ML IVP PRN (11:24)
[2021-06-08] MEDS ORDERED: *HR* LORazepam 2 MG/ML VIAL IVP ONE (11:27)
[2021-06-08] MEDS ORDERED: Vancomycin 1 EACH in 0.9 % Sodium Chloride 250 ML IVPB SCH (13:00)
[2021-06-08] MEDS ORDERED: Vancomycin 1,250 MG/262.5 ML IV.SOLN IVPB ONE ×2 (13:00→18:00)
[2021-06-08] MEDS ORDERED: 0.9 % Sodium Chloride 500 ML ONE (13:22)
[2021-06-08] MEDS ORDERED: *HR* Heparin 5,000 UNIT/ML VIAL ONE (13:29)
[2021-06-08 13:58] LABS: Hepatitis B Surface Antigen Nonreactive (Nonreactive)
[2021-06-08] MEDS ORDERED: *HR* Heparin 10,000 UNIT/10 ML VIAL IV PRN (14:23)
[2021-06-08] MEDS ORDERED: 0.9 % Sodium Chloride 250 ML IVC PRN (14:23)
[2021-06-08 14:27] LABS: Hepatitis C Virus Antibody Nonreactive (Nonreactive)
[2021-06-08 14:28] LABS: Hepatitis A Antibody IgM Nonreactive (Nonreactive); Hepatitis B Core IgM Nonreactive (Nonreactive)
[2021-06-08] MEDS ORDERED: 0.9 % Sodium Chloride 1,000 ML PRIME SCH (14:30)
[2021-06-08 15:41] LABS: Calcium 7.5 mg/dL (8.6-10.3); Potassium 5.7 mEq/L (3.5-5.1)
[2021-06-08 15:54] LABS: Hepatitis B Surface Antibody > 850.00 mIU/mL
[2021-06-08 16:04] LABS: Hepatitis B Surface Antigen Nonreactive (Nonreactive)
[2021-06-08] MEDS ORDERED: *HR* LORazepam 2 MG/ML VIAL IVP STA (16:06)
[2021-06-08] MEDS: Piperacillin/Tazobactam 3.375 GM in 0.9 % Sodium Chloride Mini Bag 100 ML IVPB SCH (18:45)
[2021-06-08] MEDS: DilTIAZem CD (24hr) 240 MG CAP.ER.24H PO SCH (20:56)
[2021-06-08 23:30] LABS: Amphetamine Screen,Urine Negative ng/mL (Cutoff=1000); Barbiturate Screen,Urine Negative ng/mL (Cutoff=200); Benzodiazepines Screen,Urine Negative ng/mL (Cutoff=200); Cannabinoid Screen,Urine Negative ng/mL (Cutoff = 50); Cocaine Screen,Urine Negative ng/mL (Cutoff= 300); Opiate Screen,Urine Negative ng/mL (Cutoff=300); Phencyclidine Screen,Urine Negative ng/mL (Cutoff=25)
[2021-06-09 03:25] LABS: Hemoglobin 7.8 g/dL (12.9-16.9); Red Cell Distribution Width 13.2 % (11.5-14.5)
[2021-06-09 03:27] LABS: Hematocrit 23.1 % (37.5-50.1); Mean Corpuscular HGB Conc 33.8 g/dL (31.6-35.5); Mean Corpuscular Hemoglobin 32.5 pg (28.0-33.3); Mean Corpuscular Volume 96.3 fL (83.0-100.0); Mean Platelet Volume 11.3 fL (9.4-12.4); Red Blood Count 2.4 M/mcL (4.19-5.50); White Blood Count 5.5 K/mcL (4.3-11.1)
[2021-06-09 04:02] LABS: Calcium 7.6 mg/dL (8.6-10.3); Magnesium 1.9 mg/dL (1.6-2.6); Potassium 3.9 mEq/L (3.5-5.1)
[2021-06-09 04:03] LABS: Troponin I 0.45 ng/mL (< 0.04)
[2021-06-09] MEDS: Piperacillin/Tazobactam 3.375 GM in 0.9 % Sodium Chloride Mini Bag 100 ML IVPB SCH ×2 (05:34→18:08)
[2021-06-09] MEDS: DilTIAZem CD (24hr) 240 MG CAP.ER.24H PO SCH (07:46)
[2021-06-09] MEDS: Isosorbide MONOnitrate (24 HR) 60 MG TAB.ER.24H PO SCH (07:47)
[2021-06-09] MEDS: Insulin LISPRO 300 UNITS/3 ML VIAL SUBQ SCH ×4 (08:31→21:00)
[2021-06-09 08:42] LABS: ABG Base Excess -1 mEq/L (-2 to 3); ABG HCO3 24 mEq/L (21-27); ABG Oxygen Saturation 95 % (95-98); ABG PCO2 40 mmHg (35-45); ABG PH 7.39 pH Units (7.32-7.45); ABG PO2 76 mmHg (85-104); ABG TCO2 26 mEq/L (20-26)
[2021-06-09] MEDS ORDERED: *HR* Heparin 5,000 UNIT/ML VIAL IVP ONE (13:53)
[2021-06-09] MEDS ORDERED: *HR* Heparin 5,000 UNIT/ML VIAL IVP PRN (13:53)
[2021-06-09] MEDS: Heparin 25,000UNIT/250ML 1/2NS 25,000 UNIT/250 ML IV.SOLN IVC SCH (14:25)
[2021-06-09] MEDS: *HR* HYDROcodone/Acet 5/325 mg TABLET PO PRN (14:59)
[2021-06-09 15:05] LABS: Adenovirus Not Detected (Not Detect); Bordetella Pertussis Not Detected (Not Detect); Chlamydophila pneumoniae Not Detected (Not Detect); Coronavirus 229E Not Detected (Not Detect); Coronavirus HKU1 Not Detected (Not Detect); Coronavirus NL63 Not Detected (Not Detect); Coronavirus OC43 Not Detected (Not Detect); Human Metapneumovirus Not Detected (Not Detect); Human Rhinovirus/Enterovirus Not Detected (Not Detect); Influenza A Subtype 2009 H1 Not Detected (Not Detect); Influenza B Not Detected (Not Detect); Mycoplasma pneumoniae Not Detected (Not Detect); Parainfluenza Virus 1 Not Detected (Not Detect); Parainfluenza Virus 2 Not Detected (Not Detect); Parainfluenza Virus 3 Not Detected (Not Detect); Parainfluenza Virus 4 Not Detected (Not Detect); Respiratory Syncytial Virus Not Detected (Not Detect); SARS-CoV-2 Not Detected (Not Detect)
[2021-06-09 16:43] LABS: Hematocrit 24.7 % (37.5-50.1); Hemoglobin 8.1 g/dL (12.9-16.9); Immature Platelets 8.8 % (1.1-6.1); Mean Corpuscular HGB Conc 32.8 g/dL (31.6-35.5); Mean Corpuscular Volume 97.6 fL (83.0-100.0); Mean Platelet Volume 11.1 fL (9.4-12.4); Red Blood Count 2.53 M/mcL (4.19-5.50); Red Cell Distribution Width 13.2 % (11.5-14.5); White Blood Count 5.5 K/mcL (4.3-11.1)
[2021-06-09 16:47] LABS: Troponin I 0.26 ng/mL (< 0.04)
[2021-06-09 16:50] LABS: Heparin anti-factor XA UFH 0.59 IU/mL (0.30-0.70); INR 1.1; Prothrombin Time 12.1 Seconds (9.4-12.1)
[2021-06-09 16:57] LABS: Thyroid Stimulating Hormone 2.707 mcIU/mL (0.340-5.600)
[2021-06-09] MEDS ORDERED: *HR* Heparin 5,000 UNIT/ML VIAL SQ SCH (18:00)
[2021-06-09] MEDS ORDERED: Morphine Sulfate 2 MG/ML SYRINGE IVP ONE ×2 (20:49→21:50)
[2021-06-09] MEDS: *HR* Heparin 5,000 UNIT/ML VIAL IVP PRN (21:18)
[2021-06-09 22:18] LABS: mecA Methicillin-Resist Gene DETECTED (Not Detect)
[2021-06-09 22:19] LABS: Acinetobacter baumannii by PCR Not Detected (Not Detect); Candida albicans by PCR Not Detected (Not Detect); Candida glabrata by PCR Not Detected (Not Detect); Candida krusei by PCR Not Detected (Not Detect); Candida parapsilosis by PCR Not Detected (Not Detect); Candida tropicalis by PCR Not Detected (Not Detect); Enterobacter cloacae Cmplx PCR Not Detected (Not Detect); Enterobacteriaceae by PCR Not Detected (Not Detect); Enterococcus by PCR Not Detected (Not Detect); Escherichia coli by PCR Not Detected (Not Detect); Klebsiella oxytoca by PCR Not Detected (Not Detect); Klebsiella pneumoniae by PCR Not Detected (Not Detect); Proteus by PCR Not Detected (Not Detect); Pseudomonas aeruginosa by PCR Not Detected (Not Detect); Serratia marcescens by PCR Not Detected (Not Detect); Staphylococcus aureus by PCR DETECTED (Not Detect); Staphylococcus by PCR Not Detected (Not Detect); Streptococcus agalactiae(B)PCR Not Detected (Not Detect); Streptococcus by PCR Not Detected (Not Detect); Streptococcus pneumoniae PCR Not Detected (Not Detect); Streptococcus pyogenes (A) PCR Not Detected (Not Detect); vanA/B Vancomycin-Resist Genes Not Detected (Not Detect)
[2021-06-09] MEDS: Ondansetron 4 MG/2 ML VIAL IVP PRN (23:24)
[2021-06-10 04:20] LABS: Hemoglobin 7.4 g/dL (12.9-16.9); Immature Granulocytes % 0.9 % (0-4)
[2021-06-10 04:21] LABS: Basophils % 0.4 %; Eosinophils # 0.2 K/mcL (0.0-0.6); Hematocrit 22.7 % (37.5-50.1); Immature Platelets 11.1 % (1.1-6.1); Lymphocytes # 0.5 K/mcL (0.6-4.6); Lymphocytes % 8.3 %; Mean Corpuscular HGB Conc 32.6 g/dL (31.6-35.5); Mean Corpuscular Hemoglobin 31.6 pg (28.0-33.3); Mean Platelet Volume 11.7 fL (9.4-12.4); Monocytes # 0.3 K/mcL (0.0-1.3); Monocytes % 5.5 %; Neutrophils # 4.4 K/mcL (1.6-8.9); Red Blood Count 2.34 M/mcL (4.19-5.50); Segmented Neutrophils % 80.9 %; White Blood Count 5.4 K/mcL (4.3-11.1)
[2021-06-10 04:22] LABS: Platelet Count 74 K/mcL (140-400)
[2021-06-10 04:27] LABS: % Iron Saturation 16 % (20-55); Alanine Aminotransferase 70 Units/L (7-52); Albumin 2.3 g/dL (3.5-5.7); Alkaline Phosphatase 139 Units/L (34-104); Aspartate Amino Transferase 65 Units/L (13-39); BUN/Creatinine Ratio 9 (6-26); Bilirubin,Direct 0.7 mg/dL (0.0-0.2); Bilirubin,Indirect 0.5 mg/dL (0.0-1.0); Bilirubin,Total 1.2 mg/dL (0.3-1.0); Blood Urea Nitrogen 49 mg/dL (6-20); Calcium 7.3 mg/dL (8.6-10.3); Carbon Dioxide 22 mEq/L (23-29); Chloride 92 mEq/L (98-107); Globulin 2.4 g/dL (2.4-3.5); Glucose 101 mg/dL (70-105); Iron 23 mcg/dL (65-175); Osmolality,Calculated 279 (280-300); Phosphorous 6.3 mg/dL (2.7-4.5); Potassium 4.5 mEq/L (3.5-5.1); Sodium 128 mEq/L (136-145); Total Protein 4.7 g/dL (6.4-8.9); Transferrin 102 mg/dL (203-362); eGFR For African Americans 14 (> 60); eGFR For Non-African Americans 12 (> 60)
[2021-06-10] MEDS: *HR* Heparin 5,000 UNIT/ML VIAL IVP PRN (04:43)
[2021-06-10] MEDS: Piperacillin/Tazobactam 3.375 GM in 0.9 % Sodium Chloride Mini Bag 100 ML IVPB SCH ×2 (04:44→16:59)
[2021-06-10 04:45] LABS: Ferritin > 1500 ng/mL (20-250)
[2021-06-10] MEDS: Insulin LISPRO 300 UNITS/3 ML VIAL SUBQ SCH ×4 (07:53→21:11)
[2021-06-10] MEDS: *HR* HYDROcodone/Acet 5/325 mg TABLET PO PRN ×2 (07:55→21:11)
[2021-06-10] MEDS: Isosorbide MONOnitrate (24 HR) 60 MG TAB.ER.24H PO SCH (07:55)
[2021-06-10 08:25] LABS: Folate 15.4 ng/mL (3.0-16.0); Vitamin B12 > 1500 pg/mL (250-1100)
[2021-06-10] MEDS: Aspirin 81 MG TAB.CHEW PO SCH (08:41)
[2021-06-10] MEDS: Heparin 25,000UNIT/250ML 1/2NS 25,000 UNIT/250 ML IV.SOLN IVC SCH (08:43)
[2021-06-10] MEDS ORDERED: Vancomycin 500 MG in 0.9 % Sodium Chloride Mini Bag 100 ML IVPB ONE (16:00)
[2021-06-11 01:03] LABS: Hemoglobin 6.9 g/dL (12.9-16.9); Red Cell Distribution Width 13.1 % (11.5-14.5)
[2021-06-11 01:05] LABS: Basophils % 0.4 %; Eosinophils # 0.2 K/mcL (0.0-0.6); Eosinophils % 3.4 %; Hematocrit 20.7 % (37.5-50.1); Immature Granulocytes % 0.6 % (0-4); Immature Platelets 10.1 % (1.1-6.1); Lymphocytes # 0.5 K/mcL (0.6-4.6); Lymphocytes % 10.3 %; Mean Corpuscular HGB Conc 33.3 g/dL (31.6-35.5); Mean Corpuscular Hemoglobin 32.1 pg (28.0-33.3); Mean Corpuscular Volume 96.3 fL (83.0-100.0); Mean Platelet Volume 12.1 fL (9.4-12.4); Monocytes # 0.4 K/mcL (0.0-1.3); Monocytes % 7.5 %; Red Blood Count 2.15 M/mcL (4.19-5.50); Segmented Neutrophils % 77.8 %; White Blood Count 5.1 K/mcL (4.3-11.1)
[2021-06-11 01:08] LABS: Platelet Count 65 K/mcL (140-400)
[2021-06-11 01:25] LABS: Calcium 7.5 mg/dL (8.6-10.3); Magnesium 2.2 mg/dL (1.6-2.6); Potassium 4.9 mEq/L (3.5-5.1)
[2021-06-11] MEDS: Piperacillin/Tazobactam 3.375 GM in 0.9 % Sodium Chloride Mini Bag 100 ML IVPB SCH (04:46)
[2021-06-11] MEDS: Heparin 25,000UNIT/250ML 1/2NS 25,000 UNIT/250 ML IV.SOLN IVC SCH (04:47)
[2021-06-11 05:02] LABS: Red Cell Distribution Width 13.1 % (11.5-14.5)
[2021-06-11 05:04] LABS: Hematocrit 21.2 % (37.5-50.1); Immature Platelets 11.1 % (1.1-6.1); Mean Corpuscular Volume 96.8 fL (83.0-100.0); Mean Platelet Volume 12.1 fL (9.4-12.4); Red Blood Count 2.19 M/mcL (4.19-5.50); White Blood Count 5.9 K/mcL (4.3-11.1)
[2021-06-11 05:20] LABS: Calcium 7.6 mg/dL (8.6-10.3); Potassium 4.9 mEq/L (3.5-5.1)
[2021-06-11] MEDS: Insulin LISPRO 300 UNITS/3 ML VIAL SUBQ SCH ×4 (07:32→22:38)
[2021-06-11] MEDS: Isosorbide MONOnitrate (24 HR) 60 MG TAB.ER.24H PO SCH (07:35)
[2021-06-11] MEDS: Aspirin 81 MG TAB.CHEW PO SCH (07:35)
[2021-06-11] MEDS: Ondansetron 4 MG/2 ML VIAL IVP PRN (07:40)
[2021-06-11 08:40] LABS: Estimated Average Glucose 246 mg/dl; Hemoglobin A1C 10.2 %
[2021-06-11] MEDS: DilTIAZem CD (24hr) 240 MG CAP.ER.24H PO SCH (09:36)
[2021-06-11] MEDS: *HR* HYDROcodone/Acet 5/325 mg TABLET PO PRN ×2 (10:31→17:07)
[2021-06-11] MEDS ORDERED: *HR* Heparin 10,000 UNIT/10 ML VIAL IV PRN (11:31)
[2021-06-11] MEDS ORDERED: 0.9 % Sodium Chloride 250 ML IVC PRN (11:31)
[2021-06-11] MEDS: Morphine Sulfate 2 MG/ML SYRINGE IVP PRN ×2 (13:56→22:27)
[2021-06-11 19:29] LABS: Phosphorous 5.9 mg/dL (2.7-4.5)
[2021-06-11] MEDS ORDERED: Vancomycin 500 MG in 0.9 % Sodium Chloride Mini Bag 100 ML IVPB ONE (20:00)
[2021-06-12] MEDS: *HR* HYDROcodone/Acet 5/325 mg TABLET PO PRN (01:21)
[2021-06-12] MEDS: Morphine Sulfate 2 MG/ML SYRINGE IVP PRN (05:24)
[2021-06-12] MEDS: Aspirin 81 MG TAB.CHEW PO SCH (07:51)
[2021-06-12] MEDS: DilTIAZem CD (24hr) 240 MG CAP.ER.24H PO SCH (07:51)
[2021-06-12] MEDS: Isosorbide MONOnitrate (24 HR) 60 MG TAB.ER.24H PO SCH (07:51)
[2021-06-12 08:01] LABS: Basophils % 0.2 %; Eosinophils # 0.1 K/mcL (0.0-0.6); Eosinophils % 1.8 %; Hematocrit 20.3 % (37.5-50.1); Hemoglobin 6.6 g/dL (12.9-16.9); Immature Platelets 13.2 % (1.1-6.1); Lymphocytes # 0.6 K/mcL (0.6-4.6); Lymphocytes % 11.5 %; Mean Corpuscular HGB Conc 32.5 g/dL (31.6-35.5); Mean Corpuscular Hemoglobin 31.6 pg (28.0-33.3); Mean Corpuscular Volume 97.1 fL (83.0-100.0); Mean Platelet Volume 12.7 fL (9.4-12.4); Monocytes # 0.4 K/mcL (0.0-1.3); Monocytes % 8.9 %; Neutrophils # 3.8 K/mcL (1.6-8.9); Red Blood Count 2.09 M/mcL (4.19-5.50); Red Cell Distribution Width 12.9 % (11.5-14.5); Segmented Neutrophils % 76.6 %; White Blood Count 4.9 K/mcL (4.3-11.1)
[2021-06-12] MEDS: Insulin LISPRO 300 UNITS/3 ML VIAL SUBQ SCH ×4 (08:02→21:04)
[2021-06-12 08:19] LABS: Platelet Count 62 K/mcL (140-400)
[2021-06-12 09:16] LABS: Calcium 7.5 mg/dL (8.6-10.3); Phosphorous 4.5 mg/dL (2.7-4.5); Potassium 3.8 mEq/L (3.5-5.1)
[2021-06-12] MEDS ORDERED: Lidocaine Viscous Oral Soln 15 ML SOLUTION MM PRN (09:42)
[2021-06-12] MEDS ORDERED: 0.9 % Sodium Chloride 500 ML IVC ONE (09:43)
[2021-06-12] MEDS: *HR* FentaNYL (PF) 100 MCG/2 ML VIAL IVP PRN ×2 (10:40→10:45)
[2021-06-12] MEDS: *HR* Midazolam HCl 5 MG/5 ML VIAL IVP PRN ×2 (10:40→10:45)
[2021-06-12] MEDS ORDERED: 0.9 % Sodium Chloride 250 ML IVC SCH (11:45)
[2021-06-12] MEDS ORDERED: 0.9 % Sodium Chloride 250 ML ONE (14:42)
[2021-06-13] MEDS: *HR* HYDROcodone/Acet 5/325 mg TABLET PO PRN ×3 (00:11→18:23)
[2021-06-13 00:40] LABS: Hemoglobin 7.2 g/dL (12.9-16.9); Lymphocytes % 15.5 %; Red Cell Distribution Width 14.3 % (11.5-14.5)
[2021-06-13 00:42] LABS: Basophils % 0.4 %; Eosinophils # 0.1 K/mcL (0.0-0.6); Eosinophils % 1.6 %; Hematocrit 21.8 % (37.5-50.1); Immature Granulocytes % 1.5 % (0-4); Immature Platelets 11.7 % (1.1-6.1); Lymphocytes # 0.9 K/mcL (0.6-4.6); Mean Corpuscular Hemoglobin 31.3 pg (28.0-33.3); Mean Corpuscular Volume 94.8 fL (83.0-100.0); Mean Platelet Volume 12.1 fL (9.4-12.4); Monocytes # 0.6 K/mcL (0.0-1.3); Monocytes % 11.5 %; Neutrophils # 3.8 K/mcL (1.6-8.9); Segmented Neutrophils % 69.5 %; White Blood Count 5.5 K/mcL (4.3-11.1)
[2021-06-13 00:43] LABS: Platelet Count 76 K/mcL (140-400)
[2021-06-13 00:54] LABS: Calcium 7.5 mg/dL (8.6-10.3); Potassium 4.2 mEq/L (3.5-5.1)
[2021-06-13] MEDS: DilTIAZem CD (24hr) 240 MG CAP.ER.24H PO SCH (07:56)
[2021-06-13] MEDS: Isosorbide MONOnitrate (24 HR) 60 MG TAB.ER.24H PO SCH (07:56)
[2021-06-13] MEDS: Aspirin 81 MG TAB.CHEW PO SCH (07:56)
[2021-06-13] MEDS: Insulin LISPRO 300 UNITS/3 ML VIAL SUBQ SCH ×4 (08:04→20:18)
[2021-06-13] MEDS ORDERED: *HR* Heparin 10,000 UNIT/10 ML VIAL IV PRN (08:19)
[2021-06-13] MEDS ORDERED: 0.9 % Sodium Chloride 250 ML IVC PRN (08:19)
[2021-06-13] MEDS ORDERED: Iron Sucrose Complex 400 MG in 0.9 % Sodium Chloride 250 ML IVPB ONE (13:53)
[2021-06-13] MEDS ORDERED: Vancomycin 1,250 MG/262.5 ML IV.SOLN IVPB ONE (16:00)
[2021-06-13] MEDS ORDERED: Vancomycin 1,500 MG/265 ML IV.SOLN IVPB ONE (16:00)
[2021-06-14 01:46] LABS: Hemoglobin 7.5 g/dL (12.9-16.9); White Blood Count 6.1 K/mcL (4.3-11.1)
[2021-06-14 01:47] LABS: Hematocrit 22.9 % (37.5-50.1); Immature Platelets 12.5 % (1.1-6.1); Mean Corpuscular HGB Conc 32.8 g/dL (31.6-35.5); Mean Corpuscular Hemoglobin 31.1 pg (28.0-33.3); Mean Platelet Volume 12.2 fL (9.4-12.4); Red Blood Count 2.41 M/mcL (4.19-5.50); Red Cell Distribution Width 14.1 % (11.5-14.5)
[2021-06-14 02:01] LABS: Calcium 7.6 mg/dL (8.6-10.3); Phosphorous 3.1 mg/dL (2.7-4.5); Potassium 3.8 mEq/L (3.5-5.1)
[2021-06-14 02:03] LABS: Iron 158 mcg/dL (65-175)
[2021-06-14] MEDS ORDERED: HydrOXYzine SYP 10 MG/5 ML UDC PO ONE (02:45)
[2021-06-14 02:51] LABS: Ferritin > 1500 ng/mL (20-250)
[2021-06-14] MEDS: Insulin LISPRO 300 UNITS/3 ML VIAL SUBQ SCH ×4 (07:43→19:44)
[2021-06-14] MEDS: Isosorbide MONOnitrate (24 HR) 60 MG TAB.ER.24H PO SCH (07:45)
[2021-06-14] MEDS: Aspirin 81 MG TAB.CHEW PO SCH (07:46)
[2021-06-14] MEDS: DilTIAZem CD (24hr) 240 MG CAP.ER.24H PO SCH (07:46)
[2021-06-14] MEDS: *HR* HYDROcodone/Acet 5/325 mg TABLET PO PRN ×2 (16:46→23:54)
[2021-06-14] MEDS: *HR* Heparin 5,000 UNIT/ML VIAL SQ SCH (16:47)
[2021-06-15 04:00] LABS: Hematocrit 23.7 % (37.5-50.1); Hemoglobin 7.9 g/dL (12.9-16.9); Mean Corpuscular HGB Conc 33.3 g/dL (31.6-35.5); Mean Corpuscular Hemoglobin 31.2 pg (28.0-33.3); Mean Corpuscular Volume 93.7 fL (83.0-100.0); Mean Platelet Volume 11.5 fL (9.4-12.4); Platelet Count 194 K/mcL (140-400); Red Blood Count 2.53 M/mcL (4.19-5.50); Red Cell Distribution Width 13.8 % (11.5-14.5)
[2021-06-15 04:18] LABS: White Blood Count 9.7 K/mcL (4.3-11.1)
[2021-06-15 04:19] LABS: Calcium 7.8 mg/dL (8.6-10.3); Potassium 3.8 mEq/L (3.5-5.1)
[2021-06-15] MEDS: *HR* Heparin 5,000 UNIT/ML VIAL SQ SCH ×2 (06:00→18:12)
[2021-06-15] MEDS: Insulin LISPRO 300 UNITS/3 ML VIAL SUBQ SCH ×4 (07:08→20:34)
[2021-06-15] MEDS: DilTIAZem CD (24hr) 240 MG CAP.ER.24H PO SCH (07:51)
[2021-06-15] MEDS: Aspirin 81 MG TAB.CHEW PO SCH (07:51)
[2021-06-15] MEDS: Isosorbide MONOnitrate (24 HR) 60 MG TAB.ER.24H PO SCH (07:51)
[2021-06-15] MEDS ORDERED: 0.9 % Sodium Chloride 250 ML IVC PRN (08:24)
[2021-06-15] MEDS: *HR* HYDROcodone/Acet 5/325 mg TABLET PO PRN ×2 (10:07→20:43)
[2021-06-15] MEDS: Ondansetron 4 MG/2 ML VIAL IVP PRN (10:07)
[2021-06-15 15:23] LABS: % Iron Saturation 109 % (20-55); Alanine Aminotransferase 36 Units/L (7-52); Albumin 2.4 g/dL (3.5-5.7); Albumin/Globulin Ratio 0.9 (1.1-2.2); Alkaline Phosphatase 275 Units/L (34-104); Amylase 32 Units/L (29-103); Aspartate Amino Transferase 23 Units/L (13-39); Bilirubin,Direct 0.3 mg/dL (0.0-0.2); Bilirubin,Indirect 0.3 mg/dL (0.0-1.0); Bilirubin,Total 0.6 mg/dL (0.3-1.0); Globulin 2.7 g/dL (2.4-3.5); Lipase 37 Units/L (11-82); Total Protein 5.1 g/dL (6.4-8.9); Transferrin 104 mg/dL (203-362)
[2021-06-15] MEDS ORDERED: Vancomycin 500 MG in 0.9 % Sodium Chloride Mini Bag 100 ML IVPB ONE (16:00)
[2021-06-16 01:09] LABS: Hematocrit 24.2 % (37.5-50.1); Mean Corpuscular HGB Conc 33.1 g/dL (31.6-35.5); Mean Corpuscular Hemoglobin 31.3 pg (28.0-33.3); Mean Corpuscular Volume 94.5 fL (83.0-100.0); Mean Platelet Volume 10.6 fL (9.4-12.4); Platelet Count 258 K/mcL (140-400); Red Blood Count 2.56 M/mcL (4.19-5.50); Red Cell Distribution Width 14.1 % (11.5-14.5); White Blood Count 12.5 K/mcL (4.3-11.1)
[2021-06-16 02:27] LABS: Calcium 7.9 mg/dL (8.6-10.3); Potassium 4.2 mEq/L (3.5-5.1)
[2021-06-16] MEDS: *HR* Heparin 5,000 UNIT/ML VIAL SQ SCH ×2 (06:36→17:25)
[2021-06-16] MEDS: Insulin LISPRO 300 UNITS/3 ML VIAL SUBQ SCH ×4 (08:07→20:57)
[2021-06-16] MEDS: Isosorbide MONOnitrate (24 HR) 60 MG TAB.ER.24H PO SCH (08:17)
[2021-06-16] MEDS: DilTIAZem CD (24hr) 240 MG CAP.ER.24H PO SCH (08:17)
[2021-06-16] MEDS: Aspirin 81 MG TAB.CHEW PO SCH (08:17)
[2021-06-16] MEDS: *HR* HYDROcodone/Acet 5/325 mg TABLET PO PRN ×2 (16:50→23:14)
[2021-06-17] MEDS: *HR* Heparin 5,000 UNIT/ML VIAL SQ SCH ×2 (06:10→16:51)
[2021-06-17] MEDS: Aspirin 81 MG TAB.CHEW PO SCH (10:01)
[2021-06-17] MEDS: Isosorbide MONOnitrate (24 HR) 60 MG TAB.ER.24H PO SCH (10:01)
[2021-06-17] MEDS: DilTIAZem CD (24hr) 240 MG CAP.ER.24H PO SCH (10:01)
[2021-06-17] MEDS: Insulin LISPRO 300 UNITS/3 ML VIAL SUBQ SCH ×4 (10:02→21:56)
[2021-06-17] MEDS: *HR* HYDROcodone/Acet 5/325 mg TABLET PO PRN ×2 (10:11→17:08)
[2021-06-18 03:36] LABS: Hematocrit 25.1 % (37.5-50.1); Hemoglobin 8.1 g/dL (12.9-16.9); Mean Corpuscular HGB Conc 32.3 g/dL (31.6-35.5); Mean Corpuscular Volume 96.2 fL (83.0-100.0); Mean Platelet Volume 10.3 fL (9.4-12.4); Platelet Count 307 K/mcL (140-400); Red Blood Count 2.61 M/mcL (4.19-5.50); Red Cell Distribution Width 14.5 % (11.5-14.5)
[2021-06-18 03:43] LABS: White Blood Count 14.8 K/mcL (4.3-11.1)
[2021-06-18 03:47] LABS: INR 1.2; Prothrombin Time 13.2 Seconds (9.4-12.1)
[2021-06-18 03:56] LABS: Calcium 8.2 mg/dL (8.6-10.3); Potassium 4.7 mEq/L (3.5-5.1)
[2021-06-18] MEDS: *HR* Heparin 5,000 UNIT/ML VIAL SQ SCH ×2 (05:53→17:13)
[2021-06-18] MEDS ORDERED: 0.9 % Sodium Chloride 250 ML IVC PRN (06:56)
[2021-06-18] MEDS ORDERED: 0.9 % Sodium Chloride 1,000 ML PRIME SCH (07:00)
[2021-06-18] MEDS: Insulin LISPRO 300 UNITS/3 ML VIAL SUBQ SCH ×4 (09:15→21:35)
[2021-06-18] MEDS: Isosorbide MONOnitrate (24 HR) 60 MG TAB.ER.24H PO SCH (09:20)
[2021-06-18] MEDS: DilTIAZem CD (24hr) 240 MG CAP.ER.24H PO SCH (09:21)
[2021-06-18] MEDS: Aspirin 81 MG TAB.CHEW PO SCH (09:22)
[2021-06-18] MEDS ORDERED: Heparin 1,000 UNITS/500 mL 500 ML ONE (12:37)
[2021-06-18] MEDS ORDERED: *HR* Midazolam HCl 2 MG/2 ML VIAL IVP ONE (12:39)
[2021-06-18] MEDS ORDERED: *HR* FentaNYL (PF) 100 MCG/2 ML VIAL IVP ONE (12:39)
[2021-06-18] MEDS ORDERED: 0.9 % Sodium Chloride 500 ML ONE (12:45)
[2021-06-18] MEDS ORDERED: *HR* FentaNYL (PF) 100 MCG/2 ML VIAL ONE (12:50)
[2021-06-18] MEDS ORDERED: *HR* Midazolam HCl 2 MG/2 ML VIAL ONE (12:50)
[2021-06-18] MEDS ORDERED: *HR* Heparin 5,000 UNIT/ML VIAL ONE (13:17)
[2021-06-18] MEDS ORDERED: Vancomycin 500 MG in 0.9 % Sodium Chloride Mini Bag 100 ML IVPB ONE ×2 (16:00→22:00)
[2021-06-19] MEDS: *HR* HYDROcodone/Acet 5/325 mg TABLET PO PRN ×2 (01:07→13:33)
[2021-06-19 02:57] LABS: Hematocrit 25.4 % (37.5-50.1); Hemoglobin 8.5 g/dL (12.9-16.9); Mean Corpuscular HGB Conc 33.5 g/dL (31.6-35.5); Mean Corpuscular Hemoglobin 32.3 pg (28.0-33.3); Mean Corpuscular Volume 96.6 fL (83.0-100.0); Platelet Count 342 K/mcL (140-400); Red Blood Count 2.63 M/mcL (4.19-5.50); Red Cell Distribution Width 14.3 % (11.5-14.5); White Blood Count 12.3 K/mcL (4.3-11.1)
[2021-06-19 03:13] LABS: Calcium 8.3 mg/dL (8.6-10.3); Potassium 3.7 mEq/L (3.5-5.1)
[2021-06-19] MEDS ORDERED: *HR* Metoprolol 5 MG/5 ML VIAL IVP ONE (03:30)
[2021-06-19] MEDS: *HR* Heparin 5,000 UNIT/ML VIAL SQ SCH ×2 (05:13→17:11)
[2021-06-19] MEDS: Insulin LISPRO 300 UNITS/3 ML VIAL SUBQ SCH ×3 (07:46→17:03)
[2021-06-19] MEDS: Aspirin 81 MG TAB.CHEW PO SCH (08:00)
[2021-06-19] MEDS: Isosorbide MONOnitrate (24 HR) 60 MG TAB.ER.24H PO SCH ×2 (08:00→08:04)
[2021-06-19] MEDS: DilTIAZem CD (24hr) 240 MG CAP.ER.24H PO SCH ×2 (08:00→08:04)
[2021-06-19] MEDS: Ondansetron 4 MG/2 ML VIAL IVP PRN (10:21)
[2021-06-19] MEDS ORDERED: 0.9 % Sodium Chloride 250 ML IVC PRN (11:05)
[2021-06-19] MEDS ORDERED: *HR* Heparin 10,000 UNIT/10 ML VIAL IV PRN (11:05)
[2021-06-19] MEDS ORDERED: Vancomycin 500 MG in 0.9 % Sodium Chloride Mini Bag 100 ML IVPB ONE (16:00)
[2021-06-19 16:19] VITALS: BP 168/89; PULSE 97; TEMP 98.5; O2SAT 96
== END 2021-06-19 18:30 | disposition home or self-care (01) | DRG 721 ==
LOC: 2ANU → SUATTDRO 09:35
PROVIDERS: ADMIT Internal Medicine; ATTEND Internal Medicine
PROC: IRPERMA (2021-06-18 12:00)